=== PATIENT | male | born 1940 | race Hispanic/Latino ===

== ENCOUNTER 2017-06-14 15:34 | Inpatient (IN) | payer MEDICARE, MEDICAID ==
[2017-06-14 15:34] VITALS: BMI 36.6
--- NOTE | 2017-06-14 16:01 | C.PDOC ---
Time Seen by Provider: 06/14/17 15:52 Chief Complaint (Nursing): Back Pain Past Medical History - Medical History PMH: Diabetes, HTN, Hypercholesterolemia, Hyperlipidemia, Hyperthyroidism, Hypothyroidism - [facility] Procedures APPLICATION OF SPLINT (09/02/14) CORONAR ARTERIOGR-2 CATH (11/06/13) LEFT HEART CARDIAC CATH (11/06/13) LT HEART ANGIOCARDIOGRAM (11/06/13) Family History: States: Unknown Family Hx - Social History Hx Tobacco Use: No Hx Alcohol Use: No Hx Substance Use: No - Immunization History Hx Tetanus Toxoid Vaccination: No Hx Influenza Vaccination: No Hx Pneumococcal Vaccination: No Disposition - Disposition Forms: [employer] (Filipino)
[2017-06-14] MEDS ORDERED: Aspirin 325 mg EC Tablets PO STA (16:04)
[2017-06-14] MEDS ORDERED: Enoxaparin 40 mg Syringe SC STA (16:06)
[2017-06-14] MEDS ORDERED: Enoxaparin 100 mg Syringe SC STA (16:16)
[2017-06-14 16:24] LABS: BASO # 0.4 K/uL (0.0-0.2); BASO % 2.1 % (0.0-2.0); HEMATOCRIT 38.8 % (35.0-51.0); LYMPH # 1.1 K/uL (1.0-4.3); LYMPH % 6.3 % (20.0-40.0); MEAN CORPUSCULAR HEMOGLOBIN 27.5 pg (27.0-31.0); MEAN CORPUSCULAR HGB CONC 32.4 g/dL (33.0-37.0); MEAN PLATELET VOLUME 9.5 fL (7.2-11.7); MONO # 1.3 K/uL (0.0-0.8); MONO % 7.5 % (0.0-10.0); PLATELET COUNT 210 K/uL (130-400); RED CELL DISTRIBUTION WIDTH 14.2 % (11.5-14.5); WHITE BLOOD COUNT 16.9 K/uL (4.8-10.8)
[2017-06-14 16:29] LABS: CHLORIDE 99 mmol/L (98-107)
[2017-06-14 16:30] LABS: SODIUM 136 mmol/L (132-148)
[2017-06-14] MEDS ORDERED: Aspirin 325 mg EC Tablets PO ONE (16:31)
[2017-06-14 16:32] LABS: AST/SGOT 165 U/L (17-59); BILIRUBIN,TOTAL 1.6 mg/dL (0.2-1.3); BLOOD UREA NITROGEN 19 mg/dL (9-20); CARBON DIOXIDE 22 mmol/L (22-30); GFR AFRICAN-AMERICAN > 60; TOTAL PROTEIN 8.1 g/dL (6.3-8.3)
[2017-06-14 16:33] LABS: ALKALINE PHOSPHATASE 50 U/L (38-126); ALT/SGPT 62 U/L (21-72); CALCIUM 9.3 mg/dl (8.6-10.4); GLUCOSE,RANDOM 284 mg/dL (75-110)
--- NOTE | 2017-06-14 16:43 | RAD ---
HISTORY: chest pain COMPARISON: Chest x-ray performed 08/30/15 TECHNIQUE: Chest, one view. FINDINGS: Examination limited by habitus. LUNGS: Right hilar prominence. No focal consolidation. Please note that chest x-ray has limited sensitivity for the detection of pulmonary masses. PLEURA: No significant pleural effusion identified. No definite pneumothorax . CARDIOVASCULAR: Median sternotomy wires with evidence of CABG. Heart size appears top normal. Atherosclerotic calcifications of the aorta. OSSEOUS STRUCTURES: Osseous demineralization. Degenerative changes. VISUALIZED UPPER ABDOMEN: Unremarkable. OTHER FINDINGS: None. IMPRESSION: Median sternotomy wires with evidence of CABG. Heart size appears top normal. Atherosclerotic calcifications of the aorta. Right hilar prominence.
--- NOTE | 2017-06-14 16:46 | C.PDOC ---
History Of Present Illness 76 year old male presents to the ED for evaluation of back pain. Per daughter who is acting as [place] active directory architect, patient had a fall yesterday due to a shuffling gait disturbance. Patient struck chin. He denies symptoms preceding fall, no headache, dizziness, or chest pain. He had no loss of consciousness or neck pain. Patient's daughter states that patient has had increasing shortness of breath on exertion, but no shortness of breath at rest. Patient has past medical history of CAD and is 3 years status post CABG. Earlier today patient was complaining to daughter of left mid lateral back pain, somewhat musculoskeletal and exacerbated by deep breath and movement. Patient has minimal complaints at this time. Time Seen by Provider: 06/14/17 15:52 Chief Complaint (Nursing): Back Pain History Per: Patient History/Exam Limitations: no limitations Onset/Duration Of Symptoms: Days Associated Symptoms: Other (Fall) Exacerbating Factor(s): Movement, Other (Deep breath) Past Medical History Reviewed: Historical Data, Nursing Documentation, Vital Signs Vital Signs: Last Vital Signs Temp 98.1 F 06/14/17 16:00 Pulse 76 06/14/17 16:00 Resp 18 06/14/17 16:00 BP 124/63 06/14/17 16:00 Pulse Ox 97 06/14/17 17:00 - Medical History PMH: Diabetes, HTN, Hypercholesterolemia, Hyperlipidemia, Hyperthyroidism, Hypothyroidism - [facility] Procedures APPLICATION OF SPLINT (09/02/14) CORONAR ARTERIOGR-2 CATH (11/06/13) LEFT HEART CARDIAC CATH (11/06/13) LT HEART ANGIOCARDIOGRAM (11/06/13) Family History: States: Unknown Family Hx - Social History Hx Tobacco Use: No Hx Alcohol Use: No Hx Substance Use: No - Immunization History Hx Tetanus Toxoid Vaccination: No Hx Influenza Vaccination: No Hx Pneumococcal Vaccination: No Review Of Systems Cardiovascular: Negative for: Chest Pain Respiratory: Positive for: SOB with Excertion. Negative for: Shortness of Breath Musculoskeletal: Positive for: Back Pain Neurological: Negative for: Headache, Dizziness Physical Exam - Physical Exam Appears: Non-toxic, No Acute Distress Skin: Normal Color, Warm, Dry Head: Atraumatic, Normacephalic Eye(s): bilateral: Normal Inspection Neck: Normal ROM, Supple Cardiovascular: Rhythm Regular (Rate Regular ), No Murmur Gastrointestinal/Abdominal: Soft, No Tenderness, No Distention Back: No CVA Tenderness, Other (No bruising, No tenderness to palpation ) Extremity: No Pedal Edema, No Deformity Neurological/Psych: Oriented x3 ED Course And Treatment - Laboratory Results Result Diagrams: 06/14/17 16:14 06/14/17 16:14 Lab Interpretation: Abnormal (WBC 16.9, Troponin 21.9, D-dimer 348) ECG: Interpreted By Me, Viewed By Me Interpretation Of ECG: ST segment elevation in II, III, and AVF, with small Q waves. Only EKG for comparison is from 2014 which appears different. O2 Sat by Pulse Oximetry: 97 Pulse Ox Interpretation: Normal - Radiology CXR: Interpreted by Me CXR Interpretation: Yes: No Acute Disease - Physician Consult Information Outcome Of Conversation: Case discussed with Dr Arce. Patient does not meet criteria for Code Heart. He has no chest pain and Q waves are present on the EKG. He will be admitted to ICU with ACS. Lovenox and Plavix administered. Dr Levy accepted patient to ICU. Dr Huertas aware. Medical Decision Making Medical Decision Making: EKG faxed to Dr. Arce who is the setter helper who does not feel this is consistent with code hear as the patient does not have chest pain and the event was over 12 hours ago. Disposition - Disposition Disposition: HOSPITALIZED Disposition Time: 17:12 Condition: STABLE - Clinical Impression Clinical Impression: ACS (acute coronary syndrome) - Scribe Statement The provider has reviewed the documentation as recorded by the Tomeka Lovett Provider Attestation: Dr. Shreya Marc
[2017-06-14 16:47] LABS: INR 1.2
[2017-06-14 17:18] LABS: NEUTROPHIL 89 % (50-75); TOTAL CELLS COUNTED 100
--- NOTE | 2017-06-14 18:49 | CP.PCM.CON ---
History of Present Illness - History of Present Illness History of Present Illness: Chief complaints: Fell down yesterday History of present illness: 76-year-old male with a history of diabetes hypertension and high cholesterol CAD status post coronary artery bypass grafting, hypercholesteremia, chronic pedal edema came to the emergency room because was not able to walk today. He was having increasing pain over the chin as well as left-sided at the chest. Patient had a fall yesterday, was unable to walk properly, he is laid down and fell on his face. Since then he developed pain over the left side of the chest. Today he came to the emergency room because of the pain over the chin and a left -sided of the chest because of the fall. He does not have any chest pain. Does not have any shortness of breath. But recently he is having difficulty in walking, he is not walking properly, weakness in the legs noted, wobbling, and unstable gait noted He had a frequent falls also Patient had a surgical intervention for open heart surgery, following that he was not following with the size stamper. Past medical history as noted above Surgical history open heart surgery Allergies: No known drug allergy Personal history nonsmoker nonalcoholic Patient lives with her . I also spoke to the patient's daughter who was with the patient in the emergency room Review of system: No headache noted No chest pain currently, no shortness of breath. Feeling well. He wanted to go home now Vital signs reviewed No neck vein distention noted Chest good air entry bilaterally, no wheezing or rales noted CVS regular heart sound, no murmur noted Abdomen soft, nontender. Extremity bilateral edema noted SERVICE ARCHITECT alert awake oriented -3, no functional neurological deficit Labs. Elevated troponin level noted EKG showing evidence ST changes noted Single size stamper. Not a code heart As the patient does not have any chest pain. No aggressive intervention at this time Assessment and recommendation: 76-year-old male now admitted with the non-ST elevation MS. Patient has a high risk factors include hypertension diabetes high cholesterol CAD, status post triple-vessel bypass. Noncompliance Medications reviewed Patient will be admitted to the intensive care unit. Close monitoring for any arrhythmias. Cardiology evaluation and follow-up and echocardiogram. DVT, GI prophylaxis Follow-up Past Patient History - Past Medical History & Family History Past Medical History?: Yes - Past Social History Smoking Status: Never Smoked - CARDIAC Hx Hypercholesterolemia: Yes Hx Hypertension: Yes - ENDOCRINE/METABOLIC Hx Hyperthyroidism: Yes Hx Hypothyroidism: Yes - MUSCULOSKELETAL/RHEUMATOLOGICAL Hx Falls: No - PSYCHIATRIC Hx Substance Use: No - SURGICAL HISTORY Hx Surgeries: No - ANESTHESIA Hx Anesthesia: Yes Hx Anesthesia Reactions: No Hx Malignant Hyperthermia: No Meds Allergies/Adverse Reactions: Allergies Allergy/AdvReac Type Severity Reaction Status Date / Time No Known Allergies Allergy Verified 09/05/14 16:16 - Medications Medications: Current Medications Aspirin (Ecotrin) 81 mg PO DAILY [facility] Docusate Sodium (Colace) 100 mg PO TID [facility] Enoxaparin Sodium (Lovenox) 40 mg SC DAILY [facility] Furosemide (Lasix) 40 mg PO DAILY [facility] Glipizide (Glucotrol) 10 mg PO BID [facility] Home Med (Atorvastatin [Lipitor]) 20 mg PO DAILY [facility] Insulin Human Regular (Novolin R) 0 unit SC ACHS [facility] PRN Reason: Protocol Methimazole (Tapazole) 10 mg PO DAILY [facility] Metoprolol Tartrate (Lopressor) 50 mg PO HS [facility] Pantoprazole Sodium (Protonix Ec Tab) 40 mg PO DAILY [facility] Results - Vital Signs Recent Vital Signs: Last Vital Signs Temp 98.1 F 06/14/17 16:00 Pulse 72 06/14/17 18:05 Resp 21 06/14/17 18:05 BP 116/61 06/14/17 18:05 Pulse Ox 96 06/14/17 18:05 - Labs Result Diagrams: 06/14/17 16:14 06/14/17 16:14 Labs: Laboratory Results - last 24 hr 06/14/17 06/14/17 06/14/17 16:14 16:14 16:14 WBC 16.9 H D RBC 4.56 Hgb 12.6 Hct 38.8 MCV 85.0 MCH 27.5 MCHC 32.4 L RDW 14.2 Plt Count 210 MPV 9.5 Neut % (Auto) 84.1 H Lymph % (Auto) 6.3 L [place] % (Auto) 7.5 Eos % (Auto) 0.0 Baso % (Auto) 2.1 H Neut # 14.2 H Lymph # 1.1 [place] # 1.3 H Eos # 0.0 Baso # 0.4 H Neutrophils % (Manual) 89 H Lymphocytes % (Manual) 4 L Monocytes % (Manual) 7 Platelet Estimate Normal PT 13.2 H INR 1.2 D-Dimer, Quantitative 348 H Sodium 136 Potassium 4.0 Chloride 99 Carbon Dioxide 22 Anion Gap 19 BUN 19 Creatinine 0.9 Est GFR ( Amer) > 60 Est GFR (Non-Af Amer) > 60 Random Glucose 284 H Calcium 9.3 Total Bilirubin 1.6 H AST 165 H ALT 62 Alkaline Phosphatase 50 Troponin I 21.9000 H* NT-Pro-B Natriuret Pep 4010 H Total Protein 8.1 Albumin 4.1 Globulin 4.0 H Albumin/Globulin Ratio 1.0
--- NOTE | 2017-06-14 19:06 | CP.PCM.CON ---
History of Present Illness - History of Present Illness History of Present Illness: 76 Male known to me s/p CABG x 3 (2013), CHF, DM 2 Admitted for ACS Lovenox, ASA, B blockers, Statins and Plavix For cath tomorrow Orders written and D/W patient and his daughter Past Patient History - Past Medical History & Family History Past Medical History?: Yes - Past Social History Smoking Status: Never Smoked - CARDIAC Hx Hypercholesterolemia: Yes Hx Hypertension: Yes - ENDOCRINE/METABOLIC Hx Hyperthyroidism: Yes Hx Hypothyroidism: Yes - MUSCULOSKELETAL/RHEUMATOLOGICAL Hx Falls: No - PSYCHIATRIC Hx Substance Use: No - SURGICAL HISTORY Hx Surgeries: No - ANESTHESIA Hx Anesthesia: Yes Hx Anesthesia Reactions: No Hx Malignant Hyperthermia: No Meds Allergies/Adverse Reactions: Allergies Allergy/AdvReac Type Severity Reaction Status Date / Time No Known Allergies Allergy Verified 09/05/14 16:16 - Medications Medications: Current Medications Aspirin (Ecotrin) 81 mg PO DAILY [facility] Clopidogrel Bisulfate (Plavix) 75 mg PO DAILY [facility] Docusate Sodium (Colace) 100 mg PO TID [facility] Enoxaparin Sodium (Lovenox) 80 mg SC BID [facility] Famotidine (Pepcid) 20 mg IVP DAILY [facility] Furosemide (Lasix) 40 mg PO DAILY [facility] Glipizide (Glucotrol) 10 mg PO BID [facility] Insulin Human Regular (Novolin R) 0 unit SC ACHS [facility] PRN Reason: Protocol Methimazole (Tapazole) 10 mg PO DAILY [facility] Metoprolol Tartrate (Lopressor) 50 mg PO HS [facility] Pantoprazole Sodium (Protonix Ec Tab) 40 mg PO DAILY [facility] Rosuvastatin Calcium (Crestor) 10 mg PO DAILY [facility] Results - Vital Signs Recent Vital Signs: Last Vital Signs Temp 98.1 F 06/14/17 16:00 Pulse 75 06/14/17 19:02 Resp 24 06/14/17 19:02 BP 129/65 06/14/17 19:02 Pulse Ox 96 06/14/17 19:02 - Labs Result Diagrams: 06/14/17 16:14 06/14/17 16:14 Labs: Laboratory Results - last 24 hr 06/14/17 06/14/17 06/14/17 16:14 16:14 16:14 WBC 16.9 H D RBC 4.56 Hgb 12.6 Hct 38.8 MCV 85.0 MCH 27.5 MCHC 32.4 L RDW 14.2 Plt Count 210 MPV 9.5 Neut % (Auto) 84.1 H Lymph % (Auto) 6.3 L [place] % (Auto) 7.5 Eos % (Auto) 0.0 Baso % (Auto) 2.1 H Neut # 14.2 H Lymph # 1.1 [place] # 1.3 H Eos # 0.0 Baso # 0.4 H Neutrophils % (Manual) 89 H Lymphocytes % (Manual) 4 L Monocytes % (Manual) 7 Platelet Estimate Normal PT 13.2 H INR 1.2 D-Dimer, Quantitative 348 H Sodium 136 Potassium 4.0 Chloride 99 Carbon Dioxide 22 Anion Gap 19 BUN 19 Creatinine 0.9 Est GFR ( Amer) > 60 Est GFR (Non-Af Amer) > 60 Random Glucose 284 H Calcium 9.3 Total Bilirubin 1.6 H AST 165 H ALT 62 Alkaline Phosphatase 50 Troponin I 21.9000 H* NT-Pro-B Natriuret Pep 4010 H Total Protein 8.1 Albumin 4.1 Globulin 4.0 H Albumin/Globulin Ratio 1.0
[2017-06-14 20:19] LABS: RBC URINE 1 /hpf (0-3); URINE BACTERIA RARE (<OCC); URINE BILIRUBIN NEGATIVE (NEGATIVE); URINE BLOOD NEGATIVE (NEGATIVE); URINE COLOR Amber (YELLOW); URINE GLUCOSE (UA) 3+ mg/dL (Normal); URINE KETONE TRACE mg/dL (NEGATIVE); URINE LEUKOCYTE ESTERASE NEG Leu/uL (Negative); URINE PROTEIN 1+ mg/dL (NEGATIVE); WBC URINE 13 /hpf (0-5)
[2017-06-14] MEDS: (Novolin R) Insulin Human Regular 100 units/ml vial SC SCH (21:25)
[2017-06-14] MEDS ORDERED: Sodium Chloride 0.9% 1,000 ML ONE (21:43)
[2017-06-14] MEDS ORDERED: Sodium Chloride 0.9% 1,000 ML IV SCH (21:45)
[2017-06-15 06:23] LABS: BASO # 0.1 K/uL (0.0-0.2); BASO % 0.4 % (0.0-2.0); EOS # 0.1 K/uL (0.0-0.7); EOS % 0.6 % (0.0-4.0); HEMATOCRIT 35.9 % (35.0-51.0); LYMPH # 1.5 K/uL (1.0-4.3); LYMPH % 11.4 % (20.0-40.0); MEAN CELL VOLUME 84.8 fL (80.0-94.0); MEAN CORPUSCULAR HEMOGLOBIN 28.1 pg (27.0-31.0); MEAN CORPUSCULAR HGB CONC 33.2 g/dL (33.0-37.0); MEAN PLATELET VOLUME 9.5 fL (7.2-11.7); MONO # 1.4 K/uL (0.0-0.8); MONO % 10.5 % (0.0-10.0); WHITE BLOOD COUNT 13.2 K/uL (4.8-10.8)
[2017-06-15 06:35] LABS: ALKALINE PHOSPHATASE 51 U/L (38-126); ALT/SGPT 50 U/L (21-72); AST/SGOT 101 U/L (17-59); BILIRUBIN,TOTAL 1.5 mg/dL (0.2-1.3); BLOOD UREA NITROGEN 17 mg/dL (9-20); CARBON DIOXIDE 25 mmol/L (22-30); CHLORIDE 99 mmol/L (98-107); GFR AFRICAN-AMERICAN > 60; GLUCOSE,RANDOM 259 mg/dL (75-110); MAGNESIUM 1.8 mg/dL (1.6-2.3); PHOSPHOROUS 2.4 mg/dL (2.5-4.5); POTASSIUM 3.8 mmol/L (3.6-5.2); SODIUM 133 mmol/L (132-148); TOTAL PROTEIN 7.4 g/dL (6.3-8.3)
[2017-06-15] MEDS: (Novolin R) Insulin Human Regular 100 units/ml vial SC SCH ×4 (08:43→21:33)
[2017-06-15] MEDS ORDERED: Enoxaparin 80 mg Syringe SC SCH (10:00)
[2017-06-15] MEDS ORDERED: Enoxaparin 40 mg Syringe SC SCH (10:00)
[2017-06-15] MEDS ORDERED: Pantoprazole 40 mg EC Tab PO SCH (10:00)
--- NOTE | 2017-06-15 12:02 | CARD ---
APPROVED REPORT EKG Measurement Heart [id number] <Conclusion> Sinus rhythm with 1st degree AV block with premature atrial complexes Possible Left atrial enlargement Low voltage QRS Inferior infarct, possibly acute Cannot rule out Anterior infarct, age undetermined ACUTE [place] / STEMI Consider right ventricular involvement in acute inferior infarct Abnormal ECG
--- NOTE | 2017-06-15 12:08 | CP.CCUPN ---
Addendum entered and electronically signed by Samanta Silverman 06/15/17 18:21 : Patient with AMS. Unable to recognize Dr. Huertas (who he normally knows). Patient does not follow commands. Cardiac cath cancelled. Stat Head Ct ordered which shows nonspecific white matter changes. Opacification/ fluid within the left mastoid air cells. After some time patient re-examined and less confused. Dr. Levy thinks patient's confusion probably due to sundowning. Dr. Aguirre (neuro) consulted who wants EEG done in AM. Original Note: <Samanta Silverman - Last Filed: 06/15/17 12:02> CCU Subjective - Physician Review Subjective (Free Text): Patient seen and examined at bedside and in no acute distress. Patient admits to shortness of breath and sweating. Patient denies chest pain, abdominal pain, nausea, vomiting, constipation, or diarrhea. CCU Objective - Vital Signs / Intake & Output Vital Signs (Last 4 hours): Vital Signs Pulse Resp BP Pulse Ox 06/15/17 12:00 144/75 06/15/17 11:59 88 25 H 95 06/15/17 11:45 86 18 06/15/17 11:30 140/85 06/15/17 09:55 94 H 26 H 128/61 100 06/15/17 09:34 126/70 06/15/17 08:55 79 24 126/70 100 06/15/17 08:30 77 24 100 Intake and Output (Last 8hrs): Intake & Output 06/14/17 06/15/17 06/15/17 22:59 06:59 14:59 Intake Total 470 610 Output Total 400 200 Balance 70 410 Weight 217 lb 209 lb 11.2 oz Intake: Intake, IV Amount 350 250 Right Hand 350 250 Oral 120 360 Output: Urine 400 200 Urine, Voided 400 200 Other: Voiding Method Urinal # Voids Urine, Voided 1 1 # Bowel Movements 0 0 - Physical Exam Head: Positive for: Atraumatic, Normocephalic Pupils: Positive for: PERRL Mouth: Positive for: Moist Mucous Membranes Respiratory/Chest: Positive for: Accessory Muscle Use, Wheezes, Rhonchi Cardiovascular: Positive for: Regular Rate and Rhythm, Normal S1, S2 Abdomen: Positive for: Normal Bowel Sounds. Negative for: Tenderness, Distention Upper Extremity: Positive for: Normal Inspection Lower Extremity: Positive for: Edema, Erythema. Negative for: Normal Inspection Neurological: Positive for: GCS=15 Skin: Positive for: Warm, Dry, Normal Color Psychiatric: Positive for: Alert, Oriented x 3 - Medications Active Medications: Active Medications Generic Name Dose Route Start Last Admin Trade Name Freq PRN Reason Stop Dose Admin Albuterol/Ipratropium 3 ml 06/15/17 12:01 Duoneb 3 Mg/0.5 Mg (3 Ml) Ud INH RQ8 GRACIE Aspirin 81 mg 06/15/17 10:00 06/15/17 09:34 Ecotrin PO 81 mg DAILY GRACIE Administration Clopidogrel Bisulfate 75 mg 06/15/17 10:00 06/15/17 09:34 Plavix PO 75 mg DAILY GRACIE Administration Docusate Sodium 100 mg 06/15/17 10:00 06/15/17 09:34 Colace PO 100 mg TID GRACIE Administration Enoxaparin Sodium 80 mg 06/15/17 10:00 06/15/17 10:00 Lovenox SC Not Given BID GRACIE Famotidine 20 mg 06/15/17 10:00 06/15/17 09:34 Pepcid IVP 20 mg DAILY GRACIE Administration Furosemide 40 mg 06/15/17 10:00 06/15/17 09:34 Lasix PO 40 mg DAILY GRACIE Administration Glipizide 10 mg 06/15/17 10:00 06/15/17 09:36 Glucotrol PO Not Given BID GRACIE Insulin Human Regular 0 unit 06/14/17 22:00 06/15/17 08:43 Novolin R SC 3 unit ACHS GRACIE Administration Protocol Methimazole 10 mg 06/15/17 10:00 06/15/17 09:33 Tapazole PO 10 mg DAILY GRACIE Administration Metoprolol Tartrate 50 mg 06/14/17 22:00 06/14/17 21:25 Lopressor PO 50 mg HS GRACIE Administration Rosuvastatin Calcium 10 mg 06/15/17 22:00 Crestor PO HS GRACIE - Patient Studies Lab Studies: Lab Studies 06/15/17 06/15/17 06/15/17 Range/Units 08:24 06:13 06:13 WBC 13.2 H (4.8-10.8) K/uL RBC 4.24 L (4.40-5.90) Mil/uL Hgb 11.9 L (12.0-18.0) g/dL Hct 35.9 (35.0-51.0) % MCV 84.8 (80.0-94.0) fL MCH 28.1 (27.0-31.0) pg MCHC 33.2 (33.0-37.0) g/dL RDW 14.0 (11.5-14.5) % Plt Count 189 (130-400) K/uL MPV 9.5 (7.2-11.7) fL Neut % (Auto) 77.1 H (50.0-75.0) % Lymph % (Auto) 11.4 L (20.0-40.0) % [place] % (Auto) 10.5 H (0.0-10.0) % Eos % (Auto) 0.6 (0.0-4.0) % Baso % (Auto) 0.4 (0.0-2.0) % Neut # 10.1 H (1.8-7.0) K/uL Lymph # 1.5 (1.0-4.3) K/uL [place] # 1.4 H (0.0-0.8) K/uL Eos # 0.1 (0.0-0.7) K/uL Baso # 0.1 (0.0-0.2) K/uL Neutrophils % (Manual) (50-75) % Lymphocytes % (Manual) (20-40) % Monocytes % (Manual) (0-10) % Platelet Estimate (NORMAL) PT (9.7-12.2) SECONDS INR D-Dimer, Quantitative (0-243) ng/mlDDU Sodium 133 (132-148) mmol/L Potassium 3.8 (3.6-5.2) mmol/L Chloride 99 (98-107) mmol/L Carbon Dioxide 25 (22-30) mmol/L Anion Gap 12 (10-20) BUN 17 (9-20) mg/dL Creatinine 0.9 (0.8-1.5) mg/dL Est GFR ( Amer) > 60 Est GFR (Non-Af Amer) > 60 POC Glucose (mg/dL) 259 H (65-110) mg/dL Random Glucose 259 H (75-110) mg/dL Calcium 9.0 (8.6-10.4) mg/dl Phosphorus 2.4 L (2.5-4.5) mg/dL Magnesium 1.8 (1.6-2.3) mg/dL Total Bilirubin 1.5 H (0.2-1.3) mg/dL AST 101 H D (17-59) U/L ALT 50 (21-72) U/L Alkaline Phosphatase 51 (38-126) U/L Total Creatine Kinase 865 H (55-170) U/L CK-MB (Mass) 16.5 H (0.0-3.38) ng/mL Troponin I (0.00-0.120) ng/mL Troponin I, Quant 17.5000 H* (0.00-0.120) ng/mL NT-Pro-B Natriuret Pep (0-900) pg/mL Total Protein 7.4 (6.3-8.3) g/dL Albumin 3.6 (3.5-5.0) g/dL Globulin 3.8 (2.2-3.9) gm/dL Albumin/Globulin Ratio 1.0 (1.0-2.1) Urine Color (YELLOW) Urine Clarity (Clear) Urine pH (5.0-8.0) Ur Specific [place] (1.003-1.030) Urine Protein (NEGATIVE) mg/dL Urine Glucose (UA) (Normal) mg/dL Urine Ketones (NEGATIVE) mg/dL Urine Blood (NEGATIVE) Urine Nitrate (NEGATIVE) Urine Bilirubin (NEGATIVE) Urine Urobilinogen (0.2-1.0) mg/dL Ur Leukocyte Esterase (Negative) Casey/uL Urine WBC (Auto) (0-5) /hpf Urine RBC (Auto) (0-3) /hpf Ur Squamous Epith Cells (0-5) /hpf Urine Bacteria (<OCC) 06/14/17 06/14/17 06/14/17 Range/Units 21:49 21:08 20:12 WBC (4.8-10.8) K/uL RBC (4.40-5.90) Mil/uL Hgb (12.0-18.0) g/dL Hct (35.0-51.0) % MCV (80.0-94.0) fL MCH (27.0-31.0) pg MCHC (33.0-37.0) g/dL RDW (11.5-14.5) % Plt Count (130-400) K/uL MPV (7.2-11.7) fL Neut % (Auto) (50.0-75.0) % Lymph % (Auto) (20.0-40.0) % [place] % (Auto) (0.0-10.0) % Eos % (Auto) (0.0-4.0) % Baso % (Auto) (0.0-2.0) % Neut # (1.8-7.0) K/uL Lymph # (1.0-4.3) K/uL [place] # (0.0-0.8) K/uL Eos # (0.0-0.7) K/uL Baso # (0.0-0.2) K/uL Neutrophils % (Manual) (50-75) % Lymphocytes % (Manual) (20-40) % Monocytes % (Manual) (0-10) % Platelet Estimate (NORMAL) PT (9.7-12.2) SECONDS INR D-Dimer, Quantitative (0-243) ng/mlDDU Sodium (132-148) mmol/L Potassium (3.6-5.2) mmol/L Chloride (98-107) mmol/L Carbon Dioxide (22-30) mmol/L Anion Gap (10-20) BUN (9-20) mg/dL Creatinine (0.8-1.5) mg/dL Est GFR ( Amer) Est GFR (Non-Af Amer) POC Glucose (mg/dL) 320 H (65-110) mg/dL Random Glucose (75-110) mg/dL Calcium (8.6-10.4) mg/dl Phosphorus (2.5-4.5) mg/dL Magnesium (1.6-2.3) mg/dL Total Bilirubin (0.2-1.3) mg/dL AST (17-59) U/L ALT (21-72) U/L Alkaline Phosphatase (38-126) U/L Total Creatine Kinase 870 H (55-170) U/L CK-MB (Mass) 24.8 H (0.0-3.38) ng/mL Troponin I (0.00-0.120) ng/mL Troponin I, Quant 19.7000 H* (0.00-0.120) ng/mL NT-Pro-B Natriuret Pep (0-900) pg/mL Total Protein (6.3-8.3) g/dL Albumin (3.5-5.0) g/dL Globulin (2.2-3.9) gm/dL Albumin/Globulin Ratio (1.0-2.1) Urine Color Sheryl (YELLOW) Urine Clarity Clear (Clear) Urine pH 5.0 (5.0-8.0) Ur Specific [place] 1.033 H (1.003-1.030) Urine Protein 1+ H (NEGATIVE) mg/dL Urine Glucose (UA) 3+ H (Normal) mg/dL Urine Ketones Trace (NEGATIVE) mg/dL Urine Blood Negative (NEGATIVE) Urine Nitrate Negative (NEGATIVE) Urine Bilirubin Negative (NEGATIVE) Urine Urobilinogen 2.0 (0.2-1.0) mg/dL Ur Leukocyte Esterase Neg (Negative) [place]/uL Urine WBC (Auto) 13 H (0-5) /hpf Urine RBC (Auto) 1 (0-3) /hpf Ur Squamous Epith Cells 1 (0-5) /hpf Urine Bacteria Rare (<OCC) 06/14/17 06/14/17 06/14/17 Range/Units 16:14 16:14 16:14 WBC 16.9 H D (4.8-10.8) K/uL RBC 4.56 (4.40-5.90) Mil/uL Hgb 12.6 (12.0-18.0) g/dL Hct 38.8 (35.0-51.0) % MCV 85.0 (80.0-94.0) fL MCH 27.5 (27.0-31.0) pg MCHC 32.4 L (33.0-37.0) g/dL RDW 14.2 (11.5-14.5) % Plt Count 210 (130-400) K/uL MPV 9.5 (7.2-11.7) fL Neut % (Auto) 84.1 H (50.0-75.0) % Lymph % (Auto) 6.3 L (20.0-40.0) % [place] % (Auto) 7.5 (0.0-10.0) % Eos % (Auto) 0.0 (0.0-4.0) % Baso % (Auto) 2.1 H (0.0-2.0) % Neut # 14.2 H (1.8-7.0) K/uL Lymph # 1.1 (1.0-4.3) K/uL [place] # 1.3 H (0.0-0.8) K/uL Eos # 0.0 (0.0-0.7) K/uL Baso # 0.4 H (0.0-0.2) K/uL Neutrophils % (Manual) 89 H (50-75) % Lymphocytes % (Manual) 4 L (20-40) % Monocytes % (Manual) 7 (0-10) % Platelet Estimate Normal (NORMAL) PT 13.2 H (9.7-12.2) SECONDS INR 1.2 D-Dimer, Quantitative 348 H (0-243) ng/mlDDU Sodium 136 (132-148) mmol/L Potassium 4.0 (3.6-5.2) mmol/L Chloride 99 (98-107) mmol/L Carbon Dioxide 22 (22-30) mmol/L Anion Gap 19 (10-20) BUN 19 (9-20) mg/dL Creatinine 0.9 (0.8-1.5) mg/dL Est GFR ( Amer) > 60 Est GFR (Non-Af Amer) > 60 POC Glucose (mg/dL) (65-110) mg/dL Random Glucose 284 H (75-110) mg/dL Calcium 9.3 (8.6-10.4) mg/dl Phosphorus (2.5-4.5) mg/dL Magnesium (1.6-2.3) mg/dL Total Bilirubin 1.6 H (0.2-1.3) mg/dL AST 165 H (17-59) U/L ALT 62 (21-72) U/L Alkaline Phosphatase 50 (38-126) U/L Total Creatine Kinase (55-170) U/L CK-MB (Mass) (0.0-3.38) ng/mL Troponin I 21.9000 H* (0.00-0.120) ng/mL Troponin I, Quant (0.00-0.120) ng/mL NT-Pro-B Natriuret Pep 4010 H (0-900) pg/mL Total Protein 8.1 (6.3-8.3) g/dL Albumin 4.1 (3.5-5.0) g/dL Globulin 4.0 H (2.2-3.9) gm/dL Albumin/Globulin Ratio 1.0 (1.0-2.1) Urine Color (YELLOW) Urine Clarity (Clear) Urine pH (5.0-8.0) Ur Specific [place] (1.003-1.030) Urine Protein (NEGATIVE) mg/dL Urine Glucose (UA) (Normal) mg/dL Urine Ketones (NEGATIVE) mg/dL Urine Blood (NEGATIVE) Urine Nitrate (NEGATIVE) Urine Bilirubin (NEGATIVE) Urine Urobilinogen (0.2-1.0) mg/dL Ur Leukocyte Esterase (Negative) [place]/uL Urine WBC (Auto) (0-5) /hpf Urine RBC (Auto) (0-3) /hpf Ur Squamous Epith Cells (0-5) /hpf Urine Bacteria (<OCC) Laboratory Results - last 24 hr 06/14/17 06/14/17 06/14/17 16:14 16:14 16:14 WBC 16.9 H D RBC 4.56 Hgb 12.6 Hct 38.8 MCV 85.0 MCH 27.5 MCHC 32.4 L RDW 14.2 Plt Count 210 MPV 9.5 Neut % (Auto) 84.1 H Lymph % (Auto) 6.3 L [place] % (Auto) 7.5 Eos % (Auto) 0.0 Baso % (Auto) 2.1 H Neut # 14.2 H Lymph # 1.1 [place] # 1.3 H Eos # 0.0 Baso # 0.4 H Neutrophils % (Manual) 89 H Lymphocytes % (Manual) 4 L Monocytes % (Manual) 7 Platelet Estimate Normal PT 13.2 H INR 1.2 D-Dimer, Quantitative 348 H Sodium 136 Potassium 4.0 Chloride 99 Carbon Dioxide 22 Anion Gap 19 BUN 19 Creatinine 0.9 Est GFR ( Amer) > 60 Est GFR (Non-Af Amer) > 60 POC Glucose (mg/dL) Random Glucose 284 H Calcium 9.3 Phosphorus Magnesium Total Bilirubin 1.6 H AST 165 H ALT 62 Alkaline Phosphatase 50 Total Creatine Kinase CK-MB (Mass) Troponin I 21.9000 H* Troponin I, Quant NT-Pro-B Natriuret Pep 4010 H Total Protein 8.1 Albumin 4.1 Globulin 4.0 H Albumin/Globulin Ratio 1.0 Urine Color Urine Clarity Urine pH Ur Specific [place] Urine Protein Urine Glucose (UA) Urine Ketones Urine Blood Urine Nitrate Urine Bilirubin Urine Urobilinogen Ur Leukocyte Esterase Urine WBC (Auto) Urine RBC (Auto) Ur Squamous Epith Cells Urine Bacteria 06/14/17 06/14/17 06/14/17 20:12 21:08 21:49 WBC RBC Hgb Hct MCV MCH MCHC RDW Plt Count MPV Neut % (Auto) Lymph % (Auto) [place] % (Auto) Eos % (Auto) Baso % (Auto) Neut # Lymph # [place] # Eos # Baso # Neutrophils % (Manual) Lymphocytes % (Manual) Monocytes % (Manual) Platelet Estimate PT INR D-Dimer, Quantitative Sodium Potassium Chloride Carbon Dioxide Anion Gap BUN Creatinine Est GFR ( Amer) Est GFR (Non-Af Amer) POC Glucose (mg/dL) 320 H Random Glucose Calcium Phosphorus Magnesium Total Bilirubin AST ALT Alkaline Phosphatase Total Creatine Kinase 870 H CK-MB (Mass) 24.8 H Troponin I Troponin I, Quant 19.7000 H* NT-Pro-B Natriuret Pep Total Protein Albumin Globulin Albumin/Globulin Ratio Urine Color Sheryl Urine Clarity Clear Urine pH 5.0 Ur Specific [place] 1.033 H Urine Protein 1+ H Urine Glucose (UA) 3+ H Urine Ketones Trace Urine Blood Negative Urine Nitrate Negative Urine Bilirubin Negative Urine Urobilinogen 2.0 Ur Leukocyte Esterase Neg Urine WBC (Auto) 13 H Urine RBC (Auto) 1 Ur Squamous Epith Cells 1 Urine Bacteria Rare 06/15/17 06/15/17 06/15/17 06:13 06:13 08:24 WBC 13.2 H RBC 4.24 L Hgb 11.9 L Hct 35.9 MCV 84.8 MCH 28.1 MCHC 33.2 RDW 14.0 Plt Count 189 MPV 9.5 Neut % (Auto) 77.1 H Lymph % (Auto) 11.4 L [place] % (Auto) 10.5 H Eos % (Auto) 0.6 Baso % (Auto) 0.4 Neut # 10.1 H Lymph # 1.5 [place] # 1.4 H Eos # 0.1 Baso # 0.1 Neutrophils % (Manual) Lymphocytes % (Manual) Monocytes % (Manual) Platelet Estimate PT INR D-Dimer, Quantitative Sodium 133 Potassium 3.8 Chloride 99 Carbon Dioxide 25 Anion Gap 12 BUN 17 Creatinine 0.9 Est GFR ( Amer) > 60 Est GFR (Non-Af Amer) > 60 POC Glucose (mg/dL) 259 H Random Glucose 259 H Calcium 9.0 Phosphorus 2.4 L Magnesium 1.8 Total Bilirubin 1.5 H AST 101 H D ALT 50 Alkaline Phosphatase 51 Total Creatine Kinase 865 H CK-MB (Mass) 16.5 H Troponin I Troponin I, Quant 17.5000 H* NT-Pro-B Natriuret Pep Total Protein 7.4 Albumin 3.6 Globulin 3.8 Albumin/Globulin Ratio 1.0 Urine Color Urine Clarity Urine pH Ur Specific [place] Urine Protein Urine Glucose (UA) Urine Ketones Urine Blood Urine Nitrate Urine Bilirubin Urine Urobilinogen Ur Leukocyte Esterase Urine WBC (Auto) Urine RBC (Auto) Ur Squamous Epith Cells Urine Bacteria EKG/Cardiology Studies: Cardiology / EKG Studies 06/14/17 16:05 ELECTROCARDIOGRAM Stat Comment: Mode Of Transportation: BED Reason For Exam: chest pain Isolation: Droplet 06/14/17 22:00 EKG [ELECTROCARDIOGRAM] Stat Comment: number 2 ekg Mode Of Transportation: BED Reason For Exam: elevated malina Isolation: Droplet 06/15/17 06:00 EKG [ELECTROCARDIOGRAM] Routine Comment: with Malina Mode Of Transportation: STRETCHER Reason For Exam: elevated troponin Isolation: Droplet Fingerstick Blood Sugar Results: 259 Review of Systems - Constitutional Constitutional: Sweats. absent: Fever, Chills, Weakness - Cardiovascular Cardiovascular: Dyspnea. absent: Chest Pain, Claudication, Palpitations - Respiratory Respiratory: Chest Congestion, Excessive Mucous Production - Gastrointestinal Gastrointestinal: absent: Constipation, Diarrhea, Nausea, Vomiting - Genitourinary Genitourinary: absent: Difficulty Urinating - Integumentary Integumentary: absent: Rash - Neurological Neurological: absent: Tingling, Weakness - Psychiatric Psychiatric: UNREMARKABLE Critical Care Progress Note - Nutrition Nutrition: Nutrition Category Date Time Status NPO Diet [DIET] Diets 06/15/17 Lunch Active Assessment/Plan - Assessment and Plan (Free Text) Assessment: 76-year-old male with a history of diabetes, hyperthyroidism, hypertension, high cholesterol, CAD, triple vessel bypass , hypercholesterolemia, chronic pedal edema s/p fall with NSTEMI on admission. Neuro: Intact Cardio: hx HTN, high cholesterol, hypercholesterolemia triple vessel bypass -Metoprolol 50mg PO HS -Rosuvastatin 10mg PO HS -Plavix 75 mh po daily -ASA 81mg po daily -Cardiac Cath today with Dr. Claude Richter: -Cxray 06/14: median sternotomy wires with evidence of CABG, heart size appears normal, atherosclerotic calcifications of the aorta, right hilar prominence -Duonebs q8h -Lasix 40mg po daily Endo: hx DM, hyperthryroidism -Glipizide 10 mg po BID -ISS ACHS -accuchecks ACHS -Methimazole 10mg PO daily GI: constipation Colace 100 mg po TID Prophylaxis: GI: Pepcid 20mg IVP daily DVT: SCDs <Jillian Levy - Last Filed: 06/22/17 14:26> CCU Objective - Vital Signs / Intake & Output Intake and Output (Last 8hrs): Intake & Output 06/21/17 06/22/17 06/22/17 22:59 06:59 14:59 Output Total 400 Balance -400 Output: Urine 400 Urine, Voided 400 - Medications Active Medications: Active Medications Generic Name Dose Route Start Last Admin Trade Name Freq PRN Reason Stop Dose Admin Acetaminophen 650 mg 06/16/17 17:16 06/16/17 17:26 Tylenol 325mg Tab PO 650 mg Q6 PRN Administration Pain, moderate (4-7) Albuterol/Ipratropium 3 ml 06/21/17 20:00 06/22/17 13:17 Duoneb 3 Mg/0.5 Mg (3 Ml) Ud INH 3 ml RQ6 GRACIE Administration Albuterol/Ipratropium 3 ml 06/21/17 16:38 Duoneb 3 Mg/0.5 Mg (3 Ml) Ud INH RQ2 PRN Shortness of Breath Aspirin 81 mg 06/15/17 10:00 06/22/17 10:00 Ecotrin PO Not Given DAILY [facility] Clopidogrel Bisulfate 75 mg 06/16/17 10:00 06/22/17 10:00 Plavix PO Not Given DAILY GRACIE Docusate Sodium 100 mg 06/15/17 10:00 06/22/17 10:00 Colace PO Not Given TID [facility] Enoxaparin Sodium 40 mg 06/16/17 10:00 06/22/17 10:00 Lovenox SC Not Given DAILY [facility] Famotidine 20 mg 06/19/17 10:00 06/22/17 10:00 Pepcid PO Not Given DAILY GRACIE Furosemide 40 mg 06/21/17 18:00 06/22/17 10:00 Lasix IVP Not Given BID GRACIE Glipizide 10 mg 06/15/17 10:00 06/22/17 10:00 Glucotrol PO Not Given BID [facility] Guaifenesin/Dextromethorphan 10 ml 06/19/17 14:00 06/21/17 10:06 Robitussin Dm PO 10 ml Q4H PRN Administration Cough and congestion Ceftriaxone Sodium 50 mls @ 100 mls/hr 06/21/17 19:00 06/21/17 20:08 Rocephin Iv 1 Gm Duplex IVPB 100 mls/hr Q24H GRACIE Administration Insulin Human Regular 0 unit 06/18/17 09:40 06/22/17 11:30 Novolin R SC Not Given ACHS [facility] Protocol Losartan Potassium 25 mg 06/22/17 10:00 06/22/17 10:00 Cozaar PO Not Given DAILY [facility] Magnesium Hydroxide 30 ml 06/19/17 11:49 06/19/17 17:21 Milk Of Magnesia PO 30 ml Q6H PRN Administration Constipation Methimazole 10 mg 06/15/17 10:00 06/22/17 10:00 Tapazole PO Not Given DAILY [facility] Metoprolol Tartrate 25 mg 06/22/17 10:18 Lopressor PO BID [facility] Rosuvastatin Calcium 10 mg 06/15/17 22:00 06/20/17 22:02 Crestor PO 10 mg HS GRACIE Administration - Patient Studies Lab Studies: Lab Studies 06/22/17 06/22/17 06/22/17 Range/Units 07:02 07:02 07:02 WBC 8.5 (4.8-10.8) K/uL RBC 3.99 L (4.40-5.90) Mil/uL Hgb 11.4 L (12.0-18.0) g/dL Hct 33.9 L (35.0-51.0) % MCV 84.8 (80.0-94.0) fL MCH 28.5 (27.0-31.0) pg MCHC 33.6 (33.0-37.0) g/dL RDW 14.2 (11.5-14.5) % Plt Count 293 (130-400) K/uL MPV 9.1 (7.2-11.7) fL PT 14.4 H (9.7-12.2) SECONDS INR 1.3 Sodium 136 (132-148) mmol/L Potassium 3.7 (3.6-5.2) mmol/L Chloride 99 (98-107) mmol/L Carbon Dioxide 25 (22-30) mmol/L Anion Gap 15 (10-20) BUN 28 H (9-20) mg/dL Creatinine 0.9 (0.8-1.5) mg/dL Est GFR ( Amer) > 60 Est GFR (Non-Af Amer) > 60 POC Glucose (mg/dL) (65-110) mg/dL Random Glucose 216 H (75-110) mg/dL Calcium 8.1 L (8.6-10.4) mg/dl 06/21/17 06/21/17 06/21/17 Range/Units 21:10 16:43 11:45 WBC (4.8-10.8) K/uL RBC (4.40-5.90) Mil/uL Hgb (12.0-18.0) g/dL Hct (35.0-51.0) % MCV (80.0-94.0) fL MCH (27.0-31.0) pg MCHC (33.0-37.0) g/dL RDW (11.5-14.5) % Plt Count (130-400) K/uL MPV (7.2-11.7) fL PT (9.7-12.2) SECONDS INR Sodium (132-148) mmol/L Potassium (3.6-5.2) mmol/L Chloride (98-107) mmol/L Carbon Dioxide (22-30) mmol/L Anion Gap (10-20) BUN (9-20) mg/dL Creatinine (0.8-1.5) mg/dL Est GFR ( Amer) Est GFR (Non-Af Amer) POC Glucose (mg/dL) 279 H 247 H 248 H (65-110) mg/dL Random Glucose (75-110) mg/dL Calcium (8.6-10.4) mg/dl Laboratory Results - last 24 hr 06/21/17 06/21/17 06/21/17 11:45 16:43 21:10 WBC RBC Hgb Hct MCV MCH MCHC RDW Plt Count MPV PT INR Sodium Potassium Chloride Carbon Dioxide Anion Gap BUN Creatinine Est GFR ( Amer) Est GFR (Non-Af Amer) POC Glucose (mg/dL) 248 H 247 H 279 H Random Glucose Calcium 06/22/17 06/22/17 06/22/17 07:02 07:02 07:02 WBC 8.5 RBC 3.99 L Hgb 11.4 L Hct 33.9 L MCV 84.8 MCH 28.5 MCHC 33.6 RDW 14.2 Plt Count 293 MPV 9.1 PT 14.4 H INR 1.3 Sodium 136 Potassium 3.7 Chloride 99 Carbon Dioxide 25 Anion Gap 15 BUN 28 H Creatinine 0.9 Est GFR ( Amer) > 60 Est GFR (Non-Af Amer) > 60 POC Glucose (mg/dL) Random Glucose 216 H Calcium 8.1 L Critical Care Progress Note - Nutrition Nutrition: Nutrition Category Date Time Status Heart Healthy Diet [DIET] Diets 06/22/17 Lunch Active Attending/Attestation - Attestation I have personally seen and examined this patient.: Yes I have fully participated in the care of the patient.: Yes I have reviewed all pertinent clinical information: Yes Notes (Text): 06/22/17 14:26 Patient is awake responding. Family at bedside. Spoke to the daughter. For angiogram again.
--- NOTE | 2017-06-15 12:11 | CARD ---
APPROVED REPORT EKG Measurement Heart [id number] <Conclusion> Sinus rhythm with 1st degree AV block with premature atrial complexes Inferior infarct, age undetermined T wave abnormality, consider lateral ischemia Abnormal ECG
[2017-06-15] MEDS: Albuterol-Ipratrop 3 mg / 0.5 (3 ml) UD INH STA (12:24)
[2017-06-15] MEDS ORDERED: Albuterol-Ipratrop 3 mg / 0.5 (3 ml) UD INH SCH (16:00)
[2017-06-15] MEDS ORDERED: Lidocaine 2% Inj (20ml) ONE (16:23)
[2017-06-15] MEDS ORDERED: Iohexol 350mg/ml 100 ML ONE (16:24)
--- NOTE | 2017-06-15 17:40 | CT ---
PROCEDURE: CT HEAD WITHOUT CONTRAST. HISTORY: AMS COMPARISON: Noncontrast Head CT performed 11/05/13 TECHNIQUE: Axial computed tomography images were obtained through the head/brain without intravenous contrast. Radiation dose: Total exam DLP = 1426.27 mGy-cm. This CT exam was performed using one or more of the following dose reduction techniques: Automated exposure control, adjustment of the mA and/or kV according to patient size, and/or use of iterative reconstruction technique. FINDINGS: Examination limited by motion and streak artifact. HEMORRHAGE: No intracranial hemorrhage. BRAIN: Diffuse atrophy with prominence of the ventricles and sulci noted. No mass effect or edema. Bilateral basal ganglia calcifications. Scattered periventricular and subcortical white matter hypodensities, which are nonspecific, but often seen with chronic microvascular ischemic disease. Please note that MRI with diffusion imaging is more sensitive in the detection of acute ischemic event. VENTRICLES: No hydrocephalus. CALVARIUM: Unremarkable. PARANASAL SINUSES: Unremarkable as visualized. No significant inflammatory changes. MASTOID AIR CELLS: Opacification/fluid within the left mastoid air cells. The right mastoid air cells appear clear. OTHER FINDINGS: None. IMPRESSION: Nonspecific white matter changes. Opacification/fluid within the left mastoid air cells.
[2017-06-15] MEDS: Albuterol-Ipratrop 3 mg / 0.5 (3 ml) UD INH SCH (20:01)
[2017-06-16] MEDS: Albuterol-Ipratrop 3 mg / 0.5 (3 ml) UD INH SCH ×3 (00:07→19:39)
--- NOTE | 2017-06-16 01:29 | HP ---
HISTORY OF PRESENT ILLNESS: The patient is a 76-year-old [place] man with history of multiple medical problems, including coronary artery bypass graft, was admitted after a fall and chest pain. The patient was found to have a troponin of [address]-T wave changes. The patient was admitted to the intensive care unit and Cardiology consult was called to be done by Dr. Arce. The patient at that time of examination was not reliable in his history, as he was not following commands and other review of systems could not be taken at that time of history taking. ALLERGIES: NO KNOWN ALLERGY. HOME MEDICATIONS: Metoprolol 50 mg at bedtime, methimazole 10 mg daily, glipizide 10 mg twice a day, Colace 100 mg three times a day, lovastatin 20 mg daily, aspirin 81 mg daily, Protonix 40 mg daily, metformin 1000 mg twice a day, Tradjenta 5 mg daily, and furosemide 40 mg daily. PAST MEDICAL HISTORY: Type 2 diabetes mellitus, hyperthyroidism, hypertension. SOCIAL HISTORY: No history of smoking, EtOH or substance abuse. FAMILY HISTORY: Not obtainable. PHYSICAL EXAMINATION: GENERAL: The patient is in bed, not in any cardiopulmonary distress at the time of this examination. VITAL SIGNS: Blood pressure 140/63, temperature 98.4, respiratory rate 20 and pulse 100. HEENT: Pupils equal, reactive to light. Normal-appearing mucosa of the conjunctiva, oropharyngeal and nasal membrane mucosa. NECK: Supple. No JVD. No carotid bruit. No lymph node. No thyromegaly. CHEST AND LUNGS: Bilaterally symmetrical expansion. Good air exchange. No rales, no rhonchi. CARDIOVASCULAR SYSTEM: PMI not localized, S1 and S2. No additional sounds. ABDOMEN: Normoactive bowel sounds. No tenderness. No organomegaly. No masses. EXTREMITIES: No cyanosis, no clubbing, no edema. CENTRAL NERVOUS SYSTEM: Alert, awake, oriented x2. No neurological deficit could be appreciated. ASSESSMENT: 1. Non-ST elevation myocardial infarction. 2. Type 2 diabetes mellitus. 3. Hyperthyroidism. 4. Coronary artery disease, status post coronary artery bypass graft. PLAN: Follow Cardiology recommendation. We will order a CAT scan of head and review the patient's home medications. Sameh MD Aleksandar [facility] # [id number]
[2017-06-16 06:51] LABS: BASO % 0.2 % (0.0-2.0); EOS # 0.1 K/uL (0.0-0.7); EOS % 0.6 % (0.0-4.0); HEMATOCRIT 35.8 % (35.0-51.0); LYMPH # 1.1 K/uL (1.0-4.3); LYMPH % 9.7 % (20.0-40.0); MEAN CELL VOLUME 86.3 fL (80.0-94.0); MEAN CORPUSCULAR HEMOGLOBIN 27.9 pg (27.0-31.0); MEAN CORPUSCULAR HGB CONC 32.3 g/dL (33.0-37.0); MEAN PLATELET VOLUME 9.9 fL (7.2-11.7); MONO # 1.2 K/uL (0.0-0.8); MONO % 10.5 % (0.0-10.0); NRBC % 0.1 % (0.0-2.0); PLATELET COUNT 184 K/uL (130-400); RED CELL DISTRIBUTION WIDTH 14.5 % (11.5-14.5); WHITE BLOOD COUNT 11.6 K/uL (4.8-10.8)
[2017-06-16 07:13] LABS: ALB/GLOB RATIO 0.9 (1.0-2.1); ALKALINE PHOSPHATASE 49 U/L (38-126); ALT/SGPT 48 U/L (21-72); AST/SGOT 50 U/L (17-59); BILIRUBIN,TOTAL 1.1 mg/dL (0.2-1.3); BLOOD UREA NITROGEN 18 mg/dL (9-20); CALCIUM 8.9 mg/dl (8.6-10.4); CARBON DIOXIDE 27 mmol/L (22-30); CHLORIDE 99 mmol/L (98-107); GFR AFRICAN-AMERICAN > 60; GLUCOSE,RANDOM 282 mg/dL (75-110); PHOSPHOROUS 3.7 mg/dL (2.5-4.5); POTASSIUM 3.9 mmol/L (3.6-5.2); SODIUM 138 mmol/L (132-148); TOTAL PROTEIN 7.5 g/dL (6.3-8.3)
--- NOTE | 2017-06-16 07:14 | CP.PCM.CON ---
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 Sz Rx PLAVIX CAROTID/EEG/MRI BLOOD WORK UP PER ORDER Past Patient History - Past Medical History & Family History Past Medical History?: Yes - Past Social History Smoking Status: Never Smoked - CARDIAC Hx Cardiac Disorders: Yes Hx Hypercholesterolemia: Yes Hx Hypertension: Yes Other/Comment: CAD - PULMONARY Hx Respiratory Disorders: No - NEUROLOGICAL Hx Neurological Disorder: No - HEENT Hx HEENT Problems: No - RENAL Hx Chronic Kidney Disease: No - ENDOCRINE/METABOLIC Hx Endocrine Disorders: Yes Hx Diabetes Mellitus Type 2: Yes Hx Hyperthyroidism: Yes Hx Hypothyroidism: Yes - HEMATOLOGICAL/ONCOLOGICAL Hx Blood Disorders: No - INTEGUMENTARY Hx Dermatological Problems: No - MUSCULOSKELETAL/RHEUMATOLOGICAL Hx Falls: Yes - GASTROINTESTINAL Hx Gastrointestinal Disorders: No - GENITOURINARY/GYNECOLOGICAL Hx Genitourinary Disorders: No - PSYCHIATRIC Hx Psychophysiologic Disorder: No Hx Substance Use: No - SURGICAL HISTORY Hx Surgeries: Yes Hx Coronary Artery Bypass Graft: Yes (triple vessel 2014) - ANESTHESIA Hx Anesthesia: Yes Hx Anesthesia Reactions: No Hx Malignant Hyperthermia: No Has any member of the family had a problem w/ anesthesia?: No Meds Allergies/Adverse Reactions: Allergies Allergy/AdvReac Type Severity Reaction Status Date / Time No Known Allergies Allergy Verified 09/05/14 16:16 - Medications Medications: Current Medications Albuterol/Ipratropium (Duoneb 3 Mg/0.5 Mg (3 Ml) Ud) 3 ml INH RQ8 [facility] Last Admin: 06/16/17 00:07 Dose: 3 ml Aspirin (Ecotrin) 81 mg PO DAILY [facility] Last Admin: 06/15/17 09:34 Dose: 81 mg Docusate Sodium (Colace) 100 mg PO TID [facility] Last Admin: 06/15/17 18:18 Dose: 100 mg Enoxaparin Sodium (Lovenox) 40 mg SC DAILY [facility] Famotidine (Pepcid) 20 mg IVP DAILY [facility] Last Admin: 06/15/17 09:34 Dose: 20 mg Furosemide (Lasix) 40 mg PO DAILY [facility] Last Admin: 06/15/17 09:34 Dose: 40 mg Glipizide (Glucotrol) 10 mg PO BID [facility] Last Admin: 11/06/17 18:17 Dose: 10 mg Insulin Human Regular (Novolin R) 0 unit SC ACHS [facility] PRN Reason: Protocol Last Admin: 06/15/17 21:33 Dose: Not Given Methimazole (Tapazole) 10 mg PO DAILY [facility] Last Admin: 06/15/17 09:33 Dose: 10 mg Metoprolol Tartrate (Lopressor) 50 mg PO HS [facility] Last Admin: 06/15/17 21:33 Dose: 50 mg Rosuvastatin Calcium (Crestor) 10 mg PO HS [facility] Last Admin: 06/15/17 21:33 Dose: 10 mg Results - Vital Signs Recent Vital Signs: Last Vital Signs Temp 99.5 F 06/15/17 16:00 Pulse 66 06/16/17 06:00 Resp 31 H 06/16/17 06:00 BP 128/61 06/16/17 05:55 Pulse Ox 94 L 06/16/17 06:00 - Labs Result Diagrams: 06/16/17 06:38 06/15/17 06:13 Labs: Laboratory Results - last 24 hr 06/15/17 06/15/17 06/15/17 08:24 12:09 13:54 WBC RBC Hgb Hct MCV MCH MCHC RDW Plt Count MPV Neut % (Auto) Lymph % (Auto) [place] % (Auto) Eos % (Auto) Baso % (Auto) Neut # Lymph # [place] # Eos # Baso # POC Glucose (mg/dL) 259 H 308 H Total Creatine Kinase 544 H CK-MB (Mass) 10.2 H Troponin I, Quant 13.0000 H* 06/15/17 06/15/17 06/15/17 16:39 21:17 22:18 WBC RBC Hgb Hct MCV MCH MCHC RDW Plt Count MPV Neut % (Auto) Lymph % (Auto) [place] % (Auto) Eos % (Auto) Baso % (Auto) Neut # Lymph # [place] # Eos # Baso # POC Glucose (mg/dL) 246 H 333 H Total Creatine Kinase 399 H CK-MB (Mass) 5.79 H Troponin I, Quant 9.9400 H* 06/16/17 06:38 WBC 11.6 H RBC 4.15 L Hgb 11.6 L Hct 35.8 MCV 86.3 MCH 27.9 MCHC 32.3 L RDW 14.5 Plt Count 184 MPV 9.9 Neut % (Auto) 79.0 H Lymph % (Auto) 9.7 L [place] % (Auto) 10.5 H Eos % (Auto) 0.6 Baso % (Auto) 0.2 Neut # 9.2 H Lymph # 1.1 [place] # 1.2 H Eos # 0.1 Baso # 0.0 POC Glucose (mg/dL) Total Creatine Kinase CK-MB (Mass) Troponin I, Quant
--- NOTE | 2017-06-16 07:42 | CP.CCUPN ---
<AndraSamanta L. - Last Filed: 06/16/17 12:11> CCU Subjective - Physician Review Subjective (Free Text): Patient seen and examined at bedside and in no acute distress. Patient less confused and more awake today. Patient does not know year when asked and says 1974 and then 2074. Patient does know he is in the hospital and can name the president. Patient denies chest pain, abdominal pain, nausea, vomiting, constipation, or diarrhea. 06/16/17 11:20 CCU Objective - Vital Signs / Intake & Output Vital Signs (Last 4 hours): Vital Signs Pulse Resp BP Pulse Ox 06/16/17 06:00 66 31 H 94 L 06/16/17 05:55 128/61 06/16/17 05:00 62 28 H 93 L 06/16/17 04:55 116/58 L 06/16/17 04:00 71 31 H 97 06/16/17 03:55 61 29 H 122/56 L 96 Intake and Output (Last 8hrs): Intake & Output 06/15/17 06/16/17 06/16/17 22:59 06:59 14:59 Intake Total 360 0 Output Total 200 Balance 160 0 Weight 205 lb 2 oz Intake: Oral 360 0 Output: Urine 200 Urine, Voided 200 Other: # Voids Urine, Voided 1 # Bowel Movements 0 - Physical Exam Head: Positive for: Atraumatic, Normocephalic Pupils: Positive for: PERRL Mouth: Positive for: Moist Mucous Membranes Respiratory/Chest: Positive for: Rhonchi. Negative for: Respiratory Distress, Accessory Muscle Use Cardiovascular: Positive for: Regular Rate and Rhythm, Normal S1, S2 Abdomen: Positive for: Normal Bowel Sounds. Negative for: Tenderness, Distention Upper Extremity: Positive for: Normal Inspection Lower Extremity: Positive for: Edema, Erythema. Negative for: Normal Inspection Neurological: Positive for: GCS=15 Skin: Positive for: Warm, Dry, Erythematous Psychiatric: Positive for: Alert. Negative for: Oriented x 3 - Medications Active Medications: Active Medications Generic Name Dose Route Start Last Admin Trade Name Freq PRN Reason Stop Dose Admin Albuterol/Ipratropium 3 ml 06/15/17 12:01 06/16/17 00:07 Duoneb 3 Mg/0.5 Mg (3 Ml) Ud INH 3 ml RQ8 GRACIE Administration Aspirin 81 mg 06/15/17 10:00 06/15/17 09:34 Ecotrin PO 81 mg DAILY GRACIE Administration Clopidogrel Bisulfate 75 mg 06/16/17 10:00 Plavix PO DAILY GRACIE Docusate Sodium 100 mg 06/15/17 10:00 06/15/17 18:18 Colace PO 100 mg TID GRACIE Administration Enoxaparin Sodium 40 mg 06/16/17 10:00 Lovenox SC DAILY GRACIE Famotidine 20 mg 06/15/17 10:00 06/15/17 09:34 Pepcid IVP 20 mg DAILY GRACIE Administration Furosemide 40 mg 06/15/17 10:00 06/15/17 09:34 Lasix PO 40 mg DAILY GRACIE Administration Glipizide 10 mg 06/15/17 10:00 06/15/17 18:17 Glucotrol PO 10 mg BID GRACIE Administration Insulin Human Regular 0 unit 06/14/17 22:00 06/15/17 21:33 Novolin R SC Not Given ACHS [facility] Protocol Methimazole 10 mg 06/15/17 10:00 06/15/17 09:33 Tapazole PO 10 mg DAILY GRACIE Administration Metoprolol Tartrate 50 mg 06/14/17 22:00 06/15/17 21:33 Lopressor PO 50 mg HS GRACIE Administration Rosuvastatin Calcium 10 mg 06/15/17 22:00 06/15/17 21:33 Crestor PO 10 mg HS GRACIE Administration - Patient Studies Lab Studies: Lab Studies 06/16/17 06/16/17 06/16/17 Range/Units 07:33 06:38 06:38 WBC 11.6 H (4.8-10.8) K/uL RBC 4.15 L (4.40-5.90) Mil/uL Hgb 11.6 L (12.0-18.0) g/dL Hct 35.8 (35.0-51.0) % MCV 86.3 (80.0-94.0) fL MCH 27.9 (27.0-31.0) pg MCHC 32.3 L (33.0-37.0) g/dL RDW 14.5 (11.5-14.5) % Plt Count 184 (130-400) K/uL MPV 9.9 (7.2-11.7) fL Neut % (Auto) 79.0 H (50.0-75.0) % Lymph % (Auto) 9.7 L (20.0-40.0) % Waldo % (Auto) 10.5 H (0.0-10.0) % Eos % (Auto) 0.6 (0.0-4.0) % Baso % (Auto) 0.2 (0.0-2.0) % Neut # 9.2 H (1.8-7.0) K/uL Lymph # 1.1 (1.0-4.3) K/uL Waldo # 1.2 H (0.0-0.8) K/uL Eos # 0.1 (0.0-0.7) K/uL Baso # 0.0 (0.0-0.2) K/uL Sodium 138 (132-148) mmol/L Potassium 3.9 (3.6-5.2) mmol/L Chloride 99 (98-107) mmol/L Carbon Dioxide 27 (22-30) mmol/L Anion Gap 16 (10-20) BUN 18 (9-20) mg/dL Creatinine 1.1 (0.8-1.5) mg/dL Est GFR ( Amer) > 60 Est GFR (Non-Af Amer) > 60 POC Glucose (mg/dL) 288 H (65-110) mg/dL Random Glucose 282 H (75-110) mg/dL Calcium 8.9 (8.6-10.4) mg/dl Phosphorus 3.7 (2.5-4.5) mg/dL Magnesium 2.0 (1.6-2.3) mg/dL Total Bilirubin 1.1 (0.2-1.3) mg/dL AST 50 (17-59) U/L ALT 48 (21-72) U/L Alkaline Phosphatase 49 (38-126) U/L Total Creatine Kinase (55-170) U/L CK-MB (Mass) (0.0-3.38) ng/mL Troponin I 11.7000 H* (0.00-0.120) ng/mL Troponin I, Quant (0.00-0.120) ng/mL Total Protein 7.5 (6.3-8.3) g/dL Albumin 3.6 (3.5-5.0) g/dL Globulin 3.9 (2.2-3.9) gm/dL Albumin/Globulin Ratio 0.9 L (1.0-2.1) 06/15/17 06/15/17 06/15/17 Range/Units 22:18 21:17 16:39 WBC (4.8-10.8) K/uL RBC (4.40-5.90) Mil/uL Hgb (12.0-18.0) g/dL Hct (35.0-51.0) % MCV (80.0-94.0) fL MCH (27.0-31.0) pg MCHC (33.0-37.0) g/dL RDW (11.5-14.5) % Plt Count (130-400) K/uL MPV (7.2-11.7) fL Neut % (Auto) (50.0-75.0) % Lymph % (Auto) (20.0-40.0) % Waldo % (Auto) (0.0-10.0) % Eos % (Auto) (0.0-4.0) % Baso % (Auto) (0.0-2.0) % Neut # (1.8-7.0) K/uL Lymph # (1.0-4.3) K/uL Waldo # (0.0-0.8) K/uL Eos # (0.0-0.7) K/uL Baso # (0.0-0.2) K/uL Sodium (132-148) mmol/L Potassium (3.6-5.2) mmol/L Chloride (98-107) mmol/L Carbon Dioxide (22-30) mmol/L Anion Gap (10-20) BUN (9-20) mg/dL Creatinine (0.8-1.5) mg/dL Est GFR ( Amer) Est GFR (Non-Af Amer) POC Glucose (mg/dL) 333 H 246 H (65-110) mg/dL Random Glucose (75-110) mg/dL Calcium (8.6-10.4) mg/dl Phosphorus (2.5-4.5) mg/dL Magnesium (1.6-2.3) mg/dL Total Bilirubin (0.2-1.3) mg/dL AST (17-59) U/L ALT (21-72) U/L Alkaline Phosphatase (38-126) U/L Total Creatine Kinase 399 H (55-170) U/L CK-MB (Mass) 5.79 H (0.0-3.38) ng/mL Troponin I (0.00-0.120) ng/mL Troponin I, Quant 9.9400 H* (0.00-0.120) ng/mL Total Protein (6.3-8.3) g/dL Albumin (3.5-5.0) g/dL Globulin (2.2-3.9) gm/dL Albumin/Globulin Ratio (1.0-2.1) 06/15/17 06/15/17 06/15/17 Range/Units 13:54 12:09 08:24 WBC (4.8-10.8) K/uL RBC (4.40-5.90) Mil/uL Hgb (12.0-18.0) g/dL Hct (35.0-51.0) % MCV (80.0-94.0) fL MCH (27.0-31.0) pg MCHC (33.0-37.0) g/dL RDW (11.5-14.5) % Plt Count (130-400) K/uL MPV (7.2-11.7) fL Neut % (Auto) (50.0-75.0) % Lymph % (Auto) (20.0-40.0) % Waldo % (Auto) (0.0-10.0) % Eos % (Auto) (0.0-4.0) % Baso % (Auto) (0.0-2.0) % Neut # (1.8-7.0) K/uL Lymph # (1.0-4.3) K/uL Waldo # (0.0-0.8) K/uL Eos # (0.0-0.7) K/uL Baso # (0.0-0.2) K/uL Sodium (132-148) mmol/L Potassium (3.6-5.2) mmol/L Chloride (98-107) mmol/L Carbon Dioxide (22-30) mmol/L Anion Gap (10-20) BUN (9-20) mg/dL Creatinine (0.8-1.5) mg/dL Est GFR ( Amer) Est GFR (Non-Af Amer) POC Glucose (mg/dL) 308 H 259 H (65-110) mg/dL Random Glucose (75-110) mg/dL Calcium (8.6-10.4) mg/dl Phosphorus (2.5-4.5) mg/dL Magnesium (1.6-2.3) mg/dL Total Bilirubin (0.2-1.3) mg/dL AST (17-59) U/L ALT (21-72) U/L Alkaline Phosphatase (38-126) U/L Total Creatine Kinase 544 H (55-170) U/L CK-MB (Mass) 10.2 H (0.0-3.38) ng/mL Troponin I (0.00-0.120) ng/mL Troponin I, Quant 13.0000 H* (0.00-0.120) ng/mL Total Protein (6.3-8.3) g/dL Albumin (3.5-5.0) g/dL Globulin (2.2-3.9) gm/dL Albumin/Globulin Ratio (1.0-2.1) Laboratory Results - last 24 hr 06/15/17 06/15/17 06/15/17 08:24 12:09 13:54 WBC RBC Hgb Hct MCV MCH MCHC RDW Plt Count MPV Neut % (Auto) Lymph % (Auto) Waldo % (Auto) Eos % (Auto) Baso % (Auto) Neut # Lymph # Waldo # Eos # Baso # Sodium Potassium Chloride Carbon Dioxide Anion Gap BUN Creatinine Est GFR ( Amer) Est GFR (Non-Af Amer) POC Glucose (mg/dL) 259 H 308 H Random Glucose Calcium Phosphorus Magnesium Total Bilirubin AST ALT Alkaline Phosphatase Total Creatine Kinase 544 H CK-MB (Mass) 10.2 H Troponin I Troponin I, Quant 13.0000 H* Total Protein Albumin Globulin Albumin/Globulin Ratio 06/15/17 06/15/17 06/15/17 16:39 21:17 22:18 WBC RBC Hgb Hct MCV MCH MCHC RDW Plt Count MPV Neut % (Auto) Lymph % (Auto) Waldo % (Auto) Eos % (Auto) Baso % (Auto) Neut # Lymph # Waldo # Eos # Baso # Sodium Potassium Chloride Carbon Dioxide Anion Gap BUN Creatinine Est GFR ( Amer) Est GFR (Non-Af Amer) POC Glucose (mg/dL) 246 H 333 H Random Glucose Calcium Phosphorus Magnesium Total Bilirubin AST ALT Alkaline Phosphatase Total Creatine Kinase 399 H CK-MB (Mass) 5.79 H Troponin I Troponin I, Quant 9.9400 H* Total Protein Albumin Globulin Albumin/Globulin Ratio 06/16/17 06/16/17 06/16/17 06:38 06:38 07:33 WBC 11.6 H RBC 4.15 L Hgb 11.6 L Hct 35.8 MCV 86.3 MCH 27.9 MCHC 32.3 L RDW 14.5 Plt Count 184 MPV 9.9 Neut % (Auto) 79.0 H Lymph % (Auto) 9.7 L Waldo % (Auto) 10.5 H Eos % (Auto) 0.6 Baso % (Auto) 0.2 Neut # 9.2 H Lymph # 1.1 Waldo # 1.2 H Eos # 0.1 Baso # 0.0 Sodium 138 Potassium 3.9 Chloride 99 Carbon Dioxide 27 Anion Gap 16 BUN 18 Creatinine 1.1 Est GFR ( Amer) > 60 Est GFR (Non-Af Amer) > 60 POC Glucose (mg/dL) 288 H Random Glucose 282 H Calcium 8.9 Phosphorus 3.7 Magnesium 2.0 Total Bilirubin 1.1 AST 50 ALT 48 Alkaline Phosphatase 49 Total Creatine Kinase CK-MB (Mass) Troponin I 11.7000 H* Troponin I, Quant Total Protein 7.5 Albumin 3.6 Globulin 3.9 Albumin/Globulin Ratio 0.9 L EKG/Cardiology Studies: Cardiology / EKG Studies 06/16/17 01:12 EKG [ELECTROCARDIOGRAM] Routine Comment: Mode Of Transportation: PORTABLE Reason For Exam: change in heart rhythm Isolation: Droplet Fingerstick Blood Sugar Results: 333 Review of Systems - Constitutional Constitutional: absent: Fever, Chills, Sweats, Weakness - Cardiovascular Cardiovascular: absent: Chest Pain, Dyspnea, Palpitations - Respiratory Respiratory: absent: Cough - Gastrointestinal Gastrointestinal: absent: Constipation, Diarrhea, Nausea, Vomiting - Genitourinary Genitourinary: absent: Difficulty Urinating - Musculoskeletal Musculoskeletal: absent: Numbness, Tingling - Integumentary Integumentary: Erythema - Neurological Neurological: Confusion - Psychiatric Psychiatric: Confusion - Hematologic/Lymphatic Hematologic: absent: Easy Bleeding, Easy Bruising Critical Care Progress Note - Nutrition Nutrition: Nutrition Category Date Time Status Heart Healthy Diet [DIET] Diets 06/15/17 Dinner Active Assessment/Plan - Assessment and Plan (Free Text) Assessment: 76-year-old male with a history of diabetes, hyperthyroidism, hypertension, high cholesterol, CAD, triple vessel bypass, hypercholesterolemia, chronic pedal edema s/p fall with NSTEMI on admission with new onset AMS on 06/15 Neuro: AMS Dr. Aguirre consulted Head CT: nonspecific white matter changes. opacification/ fluid within the left mastoid air cells. f/u MRI, EEG -carotid dopplers (06/16): negative Cardio: hx HTN, high cholesterol, hypercholesterolemia, triple vessel bypass -Metoprolol 50mg PO HS -Rosuvastatin 10mg PO HS -Plavix 75 mg po daily -ASA 81mg po daily -Lovenox 60mg sc q12h -Cardiac Cath cancelled yesterday due to AMS -Cardiac cath rescheduled for 06/17 in AM Pulm: -Cxray 06/14: median sternotomy wires with evidence of CABG, heart size appears normal, atherosclerotic calcifications of the aorta, right hilar prominence -Duonebs q8h -Lasix 40mg po daily Endo: hx DM, hyperthryroidism -Glipizide 10 mg po BID -ISS ACHS -accuchecks ACHS -Methimazole 10mg PO daily -HgA1C:8.2 -lipids: Triglycerides: 90, Cholesterol 102, LDL 57, HDL 33, Vit B12 226, Homocysteine 10.3 -f/u methylmalonic acid -Free t4: 1.23, TSH: 1.44 -Prolactin: 9 GI: constipation Colace 100 mg po TID Prophylaxis: GI: Pepcid 20mg IVP daily DVT: SCDs, Lovenox 60mg sc q12h <Nicanor Avila - Last Filed: 06/16/17 18:53> CCU Objective - Vital Signs / Intake & Output Vital Signs (Last 4 hours): Vital Signs Temp Pulse Resp BP Pulse Ox 06/16/17 18:11 74 31 H 169/72 H 94 L 06/16/17 18:00 79 30 H 94 L 06/16/17 17:56 95 H 26 H 159/87 H 95 06/16/17 17:00 75 27 H 94 L 06/16/17 16:56 65 19 128/54 L 95 06/16/17 16:00 97.3 F L 66 29 H 95 06/16/17 15:56 64 26 H 124/58 L 94 L 06/16/17 15:00 67 22 97 06/16/17 14:56 67 32 H 131/49 L 96 Intake and Output (Last 8hrs): Intake & Output 06/16/17 06/16/17 06/16/17 06:59 14:59 22:59 Intake Total 0 500 250 Output Total 470 Balance 0 30 250 Weight 205 lb 2 oz Intake: Oral 0 500 250 Output: Urine 470 Urine, Voided 470 Other: # Voids Urine, Voided 1 # Bowel Movements 0 0 0 - Medications Active Medications: Active Medications Generic Name Dose Route Start Last Admin Trade Name Freq PRN Reason Stop Dose Admin Acetaminophen 650 mg 06/16/17 17:16 06/16/17 17:26 Tylenol 325mg Tab PO 650 mg Q6 PRN Administration Pain, moderate (4-7) Albuterol/Ipratropium 3 ml 06/15/17 12:01 06/16/17 07:59 Duoneb 3 Mg/0.5 Mg (3 Ml) Ud INH 3 ml RQ8 GRACIE Administration Aspirin 81 mg 06/15/17 10:00 06/16/17 09:44 Ecotrin PO 81 mg DAILY GRACIE Administration Clopidogrel Bisulfate 75 mg 06/16/17 10:00 06/16/17 09:43 Plavix PO 75 mg DAILY GRACIE Administration Docusate Sodium 100 mg 06/15/17 10:00 06/16/17 17:01 Colace PO 100 mg TID GRACIE Administration Enoxaparin Sodium 40 mg 06/16/17 10:00 06/16/17 09:47 Lovenox SC 40 mg DAILY GRACIE Administration Famotidine 20 mg 06/15/17 10:00 06/16/17 09:44 Pepcid IVP 20 mg DAILY GRACIE Administration Furosemide 40 mg 06/15/17 10:00 06/16/17 09:43 Lasix PO 40 mg DAILY GRACIE Administration Glipizide 10 mg 06/15/17 10:00 06/16/17 17:01 Glucotrol PO 10 mg BID GRACIE Administration Insulin Human Regular 0 unit 06/14/17 22:00 06/16/17 16:47 Novolin R SC 5 unit ACHS GRACIE Administration Protocol Methimazole 10 mg 06/15/17 10:00 06/16/17 09:44 Tapazole PO 10 mg DAILY GRACIE Administration Metoprolol Tartrate 50 mg 06/14/17 22:00 06/15/17 21:33 Lopressor PO 50 mg HS GRACIE Administration Rosuvastatin Calcium 10 mg 06/15/17 22:00 06/15/17 21:33 Crestor PO 10 mg HS GRACIE Administration - Patient Studies Lab Studies: Microbiology Studies 06/14/17 22:40 MRSA Culture (Admit) - Final Nose MRSA NOT DETECTED Lab Studies 06/16/17 06/16/17 06/16/17 Range/Units 16:15 11:48 07:51 WBC (4.8-10.8) K/uL RBC (4.40-5.90) Mil/uL Hgb (12.0-18.0) g/dL Hct (35.0-51.0) % MCV (80.0-94.0) fL MCH (27.0-31.0) pg MCHC (33.0-37.0) g/dL RDW (11.5-14.5) % Plt Count (130-400) K/uL MPV (7.2-11.7) fL Neut % (Auto) (50.0-75.0) % Lymph % (Auto) (20.0-40.0) % Waldo % (Auto) (0.0-10.0) % Eos % (Auto) (0.0-4.0) % Baso % (Auto) (0.0-2.0) % Neut # (1.8-7.0) K/uL Lymph # (1.0-4.3) K/uL Waldo # (0.0-0.8) K/uL Eos # (0.0-0.7) K/uL Baso # (0.0-0.2) K/uL Neutrophils % (Manual) (50-75) % Lymphocytes % (Manual) (20-40) % Monocytes % (Manual) (0-10) % Platelet Estimate (NORMAL) RBC Morphology Sodium (132-148) mmol/L Potassium (3.6-5.2) mmol/L Chloride (98-107) mmol/L Carbon Dioxide (22-30) mmol/L Anion Gap (10-20) BUN (9-20) mg/dL Creatinine (0.8-1.5) mg/dL Est GFR ( Amer) Est GFR (Non-Af Amer) POC Glucose (mg/dL) 350 H 366 H (65-110) mg/dL Random Glucose (75-110) mg/dL Hemoglobin A1c (4.2-6.5) % Calcium (8.6-10.4) mg/dl Phosphorus (2.5-4.5) mg/dL Magnesium (1.6-2.3) mg/dL Total Bilirubin (0.2-1.3) mg/dL AST (17-59) U/L ALT (21-72) U/L Alkaline Phosphatase (38-126) U/L Total Creatine Kinase (55-170) U/L CK-MB (Mass) (0.0-3.38) ng/mL Troponin I (0.00-0.120) ng/mL Troponin I, Quant (0.00-0.120) ng/mL Total Protein (6.3-8.3) g/dL Albumin (3.5-5.0) g/dL Globulin (2.2-3.9) gm/dL Albumin/Globulin Ratio (1.0-2.1) Triglycerides (0-149) mg/dL Cholesterol (0-199) mg/dL LDL Cholesterol Direct (0-129) mg/dL HDL Cholesterol (30-70) mg/dL Vitamin B12 (239-931) pg/mL Homocysteine (6.6-14.8) umol/L Free T4 (0.78-2.19) ng/dL TSH 3rd Generation (0.46-4.68) mIU/L Prolactin (3.7-17.9) ng/mL RPR Nonreactive (NONREACTIVE) 06/16/17 06/16/17 06/16/17 Range/Units 07:51 07:51 07:51 WBC (4.8-10.8) K/uL RBC (4.40-5.90) Mil/uL Hgb (12.0-18.0) g/dL Hct (35.0-51.0) % MCV (80.0-94.0) fL MCH (27.0-31.0) pg MCHC (33.0-37.0) g/dL RDW (11.5-14.5) % Plt Count (130-400) K/uL MPV (7.2-11.7) fL Neut % (Auto) (50.0-75.0) % Lymph % (Auto) (20.0-40.0) % Waldo % (Auto) (0.0-10.0) % Eos % (Auto) (0.0-4.0) % Baso % (Auto) (0.0-2.0) % Neut # (1.8-7.0) K/uL Lymph # (1.0-4.3) K/uL Waldo # (0.0-0.8) K/uL Eos # (0.0-0.7) K/uL Baso # (0.0-0.2) K/uL Neutrophils % (Manual) (50-75) % Lymphocytes % (Manual) (20-40) % Monocytes % (Manual) (0-10) % Platelet Estimate (NORMAL) RBC Morphology Sodium (132-148) mmol/L Potassium (3.6-5.2) mmol/L Chloride (98-107) mmol/L Carbon Dioxide (22-30) mmol/L Anion Gap (10-20) BUN (9-20) mg/dL Creatinine (0.8-1.5) mg/dL Est GFR ( Amer) Est GFR (Non-Af Amer) POC Glucose (mg/dL) (65-110) mg/dL Random Glucose (75-110) mg/dL Hemoglobin A1c 8.2 H (4.2-6.5) % Calcium (8.6-10.4) mg/dl Phosphorus (2.5-4.5) mg/dL Magnesium (1.6-2.3) mg/dL Total Bilirubin (0.2-1.3) mg/dL AST (17-59) U/L ALT (21-72) U/L Alkaline Phosphatase (38-126) U/L Total Creatine Kinase (55-170) U/L CK-MB (Mass) (0.0-3.38) ng/mL Troponin I (0.00-0.120) ng/mL Troponin I, Quant (0.00-0.120) ng/mL Total Protein (6.3-8.3) g/dL Albumin (3.5-5.0) g/dL Globulin (2.2-3.9) gm/dL Albumin/Globulin Ratio (1.0-2.1) Triglycerides 90 (0-149) mg/dL Cholesterol 102 (0-199) mg/dL LDL Cholesterol Direct 57 (0-129) mg/dL HDL Cholesterol 33 (30-70) mg/dL Vitamin B12 226 L (239-931) pg/mL Homocysteine 10.3 (6.6-14.8) umol/L Free T4 1.23 (0.78-2.19) ng/dL TSH 3rd Generation 1.44 (0.46-4.68) mIU/L Prolactin 9.0 (3.7-17.9) ng/mL RPR (NONREACTIVE) 06/16/17 06/16/17 06/16/17 Range/Units 07:33 06:38 06:38 WBC 11.6 H (4.8-10.8) K/uL RBC 4.15 L (4.40-5.90) Mil/uL Hgb 11.6 L (12.0-18.0) g/dL Hct 35.8 (35.0-51.0) % MCV 86.3 (80.0-94.0) fL MCH 27.9 (27.0-31.0) pg MCHC 32.3 L (33.0-37.0) g/dL RDW 14.5 (11.5-14.5) % Plt Count 184 (130-400) K/uL MPV 9.9 (7.2-11.7) fL Neut % (Auto) 79.0 H (50.0-75.0) % Lymph % (Auto) 9.7 L (20.0-40.0) % Waldo % (Auto) 10.5 H (0.0-10.0) % Eos % (Auto) 0.6 (0.0-4.0) % Baso % (Auto) 0.2 (0.0-2.0) % Neut # 9.2 H (1.8-7.0) K/uL Lymph # 1.1 (1.0-4.3) K/uL Waldo # 1.2 H (0.0-0.8) K/uL Eos # 0.1 (0.0-0.7) K/uL Baso # 0.0 (0.0-0.2) K/uL Neutrophils % (Manual) 79 H (50-75) % Lymphocytes % (Manual) 12 L (20-40) % Monocytes % (Manual) 9 (0-10) % Platelet Estimate Normal (NORMAL) RBC Morphology Normal Sodium 138 (132-148) mmol/L Potassium 3.9 (3.6-5.2) mmol/L Chloride 99 (98-107) mmol/L Carbon Dioxide 27 (22-30) mmol/L Anion Gap 16 (10-20) BUN 18 (9-20) mg/dL Creatinine 1.1 (0.8-1.5) mg/dL Est GFR ( Amer) > 60 Est GFR (Non-Af Amer) > 60 POC Glucose (mg/dL) 288 H (65-110) mg/dL Random Glucose 282 H (75-110) mg/dL Hemoglobin A1c (4.2-6.5) % Calcium 8.9 (8.6-10.4) mg/dl Phosphorus 3.7 (2.5-4.5) mg/dL Magnesium 2.0 (1.6-2.3) mg/dL Total Bilirubin 1.1 (0.2-1.3) mg/dL AST 50 (17-59) U/L ALT 48 (21-72) U/L Alkaline Phosphatase 49 (38-126) U/L Total Creatine Kinase (55-170) U/L CK-MB (Mass) (0.0-3.38) ng/mL Troponin I 11.7000 H* (0.00-0.120) ng/mL Troponin I, Quant (0.00-0.120) ng/mL Total Protein 7.5 (6.3-8.3) g/dL Albumin 3.6 (3.5-5.0) g/dL Globulin 3.9 (2.2-3.9) gm/dL Albumin/Globulin Ratio 0.9 L (1.0-2.1) Triglycerides (0-149) mg/dL Cholesterol (0-199) mg/dL LDL Cholesterol Direct (0-129) mg/dL HDL Cholesterol (30-70) mg/dL Vitamin B12 (239-931) pg/mL Homocysteine (6.6-14.8) umol/L Free T4 (0.78-2.19) ng/dL TSH 3rd Generation (0.46-4.68) mIU/L Prolactin (3.7-17.9) ng/mL RPR (NONREACTIVE) 06/15/17 06/15/17 Range/Units 22:18 21:17 WBC (4.8-10.8) K/uL RBC (4.40-5.90) Mil/uL Hgb (12.0-18.0) g/dL Hct (35.0-51.0) % MCV (80.0-94.0) fL MCH (27.0-31.0) pg MCHC (33.0-37.0) g/dL RDW (11.5-14.5) % Plt Count (130-400) K/uL MPV (7.2-11.7) fL Neut % (Auto) (50.0-75.0) % Lymph % (Auto) (20.0-40.0) % Waldo % (Auto) (0.0-10.0) % Eos % (Auto) (0.0-4.0) % Baso % (Auto) (0.0-2.0) % Neut # (1.8-7.0) K/uL Lymph # (1.0-4.3) K/uL Waldo # (0.0-0.8) K/uL Eos # (0.0-0.7) K/uL Baso # (0.0-0.2) K/uL Neutrophils % (Manual) (50-75) % Lymphocytes % (Manual) (20-40) % Monocytes % (Manual) (0-10) % Platelet Estimate (NORMAL) RBC Morphology Sodium (132-148) mmol/L Potassium (3.6-5.2) mmol/L Chloride (98-107) mmol/L Carbon Dioxide (22-30) mmol/L Anion Gap (10-20) BUN (9-20) mg/dL Creatinine (0.8-1.5) mg/dL Est GFR ( Amer) Est GFR (Non-Af Amer) POC Glucose (mg/dL) 333 H (65-110) mg/dL Random Glucose (75-110) mg/dL Hemoglobin A1c (4.2-6.5) % Calcium (8.6-10.4) mg/dl Phosphorus (2.5-4.5) mg/dL Magnesium (1.6-2.3) mg/dL Total Bilirubin (0.2-1.3) mg/dL AST (17-59) U/L ALT (21-72) U/L Alkaline Phosphatase (38-126) U/L Total Creatine Kinase 399 H (55-170) U/L CK-MB (Mass) 5.79 H (0.0-3.38) ng/mL Troponin I (0.00-0.120) ng/mL Troponin I, Quant 9.9400 H* (0.00-0.120) ng/mL Total Protein (6.3-8.3) g/dL Albumin (3.5-5.0) g/dL Globulin (2.2-3.9) gm/dL Albumin/Globulin Ratio (1.0-2.1) Triglycerides (0-149) mg/dL Cholesterol (0-199) mg/dL LDL Cholesterol Direct (0-129) mg/dL HDL Cholesterol (30-70) mg/dL Vitamin B12 (239-931) pg/mL Homocysteine (6.6-14.8) umol/L Free T4 (0.78-2.19) ng/dL TSH 3rd Generation (0.46-4.68) mIU/L Prolactin (3.7-17.9) ng/mL RPR (NONREACTIVE) Laboratory Results - last 24 hr 06/15/17 06/15/17 06/16/17 21:17 22:18 06:38 WBC 11.6 H RBC 4.15 L Hgb 11.6 L Hct 35.8 MCV 86.3 MCH 27.9 MCHC 32.3 L RDW 14.5 Plt Count 184 MPV 9.9 Neut % (Auto) 79.0 H Lymph % (Auto) 9.7 L Waldo % (Auto) 10.5 H Eos % (Auto) 0.6 Baso % (Auto) 0.2 Neut # 9.2 H Lymph # 1.1 Waldo # 1.2 H Eos # 0.1 Baso # 0.0 Neutrophils % (Manual) 79 H Lymphocytes % (Manual) 12 L Monocytes % (Manual) 9 Platelet Estimate Normal RBC Morphology Normal Sodium Potassium Chloride Carbon Dioxide Anion Gap BUN Creatinine Est GFR ( Amer) Est GFR (Non-Af Amer) POC Glucose (mg/dL) 333 H Random Glucose Hemoglobin A1c Calcium Phosphorus Magnesium Total Bilirubin AST ALT Alkaline Phosphatase Total Creatine Kinase 399 H CK-MB (Mass) 5.79 H Troponin I Troponin I, Quant 9.9400 H* Total Protein Albumin Globulin Albumin/Globulin Ratio Triglycerides Cholesterol LDL Cholesterol Direct HDL Cholesterol Vitamin B12 Homocysteine Free T4 TSH 3rd Generation Prolactin RPR 06/16/17 06/16/17 06/16/17 06:38 07:33 07:51 WBC RBC Hgb Hct MCV MCH MCHC RDW Plt Count MPV Neut % (Auto) Lymph % (Auto) Waldo % (Auto) Eos % (Auto) Baso % (Auto) Neut # Lymph # [place] # Eos # Baso # Neutrophils % (Manual) Lymphocytes % (Manual) Monocytes % (Manual) Platelet Estimate RBC Morphology Sodium 138 Potassium 3.9 Chloride 99 Carbon Dioxide 27 Anion Gap 16 BUN 18 Creatinine 1.1 Est GFR ( Amer) > 60 Est GFR (Non-Af Amer) > 60 POC Glucose (mg/dL) 288 H Random Glucose 282 H Hemoglobin A1c Calcium 8.9 Phosphorus 3.7 Magnesium 2.0 Total Bilirubin 1.1 AST 50 ALT 48 Alkaline Phosphatase 49 Total Creatine Kinase CK-MB (Mass) Troponin I 11.7000 H* Troponin I, Quant Total Protein 7.5 Albumin 3.6 Globulin 3.9 Albumin/Globulin Ratio 0.9 L Triglycerides 90 Cholesterol 102 LDL Cholesterol Direct 57 HDL Cholesterol 33 Vitamin B12 226 L Homocysteine 10.3 Free T4 TSH 3rd Generation Prolactin 9.0 RPR 06/16/17 06/16/17 06/16/17 07:51 07:51 07:51 WBC RBC Hgb Hct MCV MCH MCHC RDW Plt Count MPV Neut % (Auto) Lymph % (Auto) [place]do % (Auto) Eos % (Auto) Baso % (Auto) Neut # Lymph # [place] # Eos # Baso # Neutrophils % (Manual) Lymphocytes % (Manual) Monocytes % (Manual) Platelet Estimate RBC Morphology Sodium Potassium Chloride Carbon Dioxide Anion Gap BUN Creatinine Est GFR ( Amer) Est GFR (Non-Af Amer) POC Glucose (mg/dL) Random Glucose Hemoglobin A1c 8.2 H Calcium Phosphorus Magnesium Total Bilirubin AST ALT Alkaline Phosphatase Total Creatine Kinase CK-MB (Mass) Troponin I Troponin I, Quant Total Protein Albumin Globulin Albumin/Globulin Ratio Triglycerides Cholesterol LDL Cholesterol Direct HDL Cholesterol Vitamin B12 Homocysteine Free T4 1.23 TSH 3rd Generation 1.44 Prolactin RPR Nonreactive 06/16/17 06/16/17 11:48 16:15 WBC RBC Hgb Hct MCV MCH MCHC RDW Plt Count MPV Neut % (Auto) Lymph % (Auto) [place] % (Auto) Eos % (Auto) Baso % (Auto) Neut # Lymph # [place] # Eos # Baso # Neutrophils % (Manual) Lymphocytes % (Manual) Monocytes % (Manual) Platelet Estimate RBC Morphology Sodium Potassium Chloride Carbon Dioxide Anion Gap BUN Creatinine Est GFR ( Amer) Est GFR (Non-Af Amer) POC Glucose (mg/dL) 366 H 350 H Random Glucose Hemoglobin A1c Calcium Phosphorus Magnesium Total Bilirubin AST ALT Alkaline Phosphatase Total Creatine Kinase CK-MB (Mass) Troponin I Troponin I, Quant Total Protein Albumin Globulin Albumin/Globulin Ratio Triglycerides Cholesterol LDL Cholesterol Direct HDL Cholesterol Vitamin B12 Homocysteine Free T4 TSH 3rd Generation Prolactin RPR EKG/Cardiology Studies: Cardiology / EKG Studies 06/16/17 01:12 EKG [ELECTROCARDIOGRAM] Routine Comment: Mode Of Transportation: PORTABLE Reason For Exam: change in heart rhythm Isolation: Droplet Critical Care Progress Note - Nutrition Nutrition: Nutrition Category Date Time Status NPO Diet [DIET] Diets 06/16/17 Breakfast Active Attending/Attestation - Attestation I have personally seen and examined this patient.: Yes I have fully participated in the care of the patient.: Yes I have reviewed all pertinent clinical information: Yes Notes (Text): 06/16/17 18:52 Patient seen and examined in the intensive care unit. Case discussed with house staff in the morning. Possible cardiac cath tomorrow MRI of the brain showed no acute infarct changes Continue treatment as per neurology and cardiology
[2017-06-16] MEDS: (Novolin R) Insulin Human Regular 100 units/ml vial SC SCH ×4 (08:03→21:52)
[2017-06-16 08:43] LABS: NEUTROPHIL 79 % (50-75); TOTAL CELLS COUNTED 100
[2017-06-16 08:57] LABS: HOMOCYSTEINE 10.3 umol/L (6.6-14.8)
[2017-06-16 09:01] LABS: FREE T4 1.23 ng/dL (0.78-2.19)
[2017-06-16 09:15] LABS: THYROID STIMULATING HORMONE 1.44 mIU/L (0.46-4.68)
[2017-06-16] MEDS: Enoxaparin 40 mg Syringe SC SCH (09:47)
--- NOTE | 2017-06-16 10:32 | CON ---
DATE: 06/16/2017 TIME OF EVALUATION: 6:55 a.m. REASON FOR THE CONSULTATION: Change in mental status. CHIEF COMPLAINT: The patient was brought in to [facility] to the ED with history of evaluation of his back, history of a fall prior to this back pain. During the hospitalization, the patient showed evidence of change in mental status. From neurological point of view, I was called in to evaluate him for further management. HISTORY OF PRESENT ILLNESS: Mr. Mohamud Lei is a 76-year-old right-handed, well-built male, bringing up history of lower back pain while he was getting up losing his balance, struck his chin with a hard subject. He claims could not be able to recall how did it happen. He also admit similar episode has happened twice in the past. He did not remember what workup medically done for those episodes. He is also having episodes of increasing his shortness of breath. History of coronary artery disease, status post CABG 3 years ago. No history of involuntary movements. No history of loss of consciousness being witnessed and documented in the chart. PAST MEDICAL HISTORY: Hypertension; coronary artery disease, status post bypass surgery; dyslipidemia; hyperthyroidism and diabetes mellitus. PERSONAL HISTORY: Denies history of smoking. No history of smoking or alcohol use. ALLERGIES: NO KNOWN ALLERGIES. REVIEW OF SYSTEMS: A 12-point systems had been reviewed. From neuro, change in mental status. MEDICATION: Crestor, Colace, aspirin, Glucotrol, Lasix, Lopressor, Lovenox, Novolin, Pepcid, Tapazole. PHYSICAL EXAMINATION: VITAL SIGNS: Blood pressure 128/61, mean arterial pressure of 74, respiratory rate 16, temperature afebrile. NECK: Supple. No carotid bruit. HEART: Sounds are regular. CHEST: Fair air entry. EXTREMITIES: Both legs are externally rotated with stasis dermatitis. Monitor shows sinus arrhythmias with intermittent PVCs noted. NEUROLOGICAL: Mental status examination: He is arousable calling his first name. He knows he is in the hospital. He could not be able to tell the name of the hospital after struggling 5 minutes. He knows the year. He follows 1 to 2-step command. Slightly having right and left confusion. Speech is fluent. Naming and repetition intact. Comprehension is intact. Cranial nerve examination: Respond to visual threat. Could not be able to count the finger on either side. Extraocular movement slightly decreased on end gaze. No facial sensory deficit. No facial asymmetry. Hearing is normal. Tongue is midline. Good gag. Motor examination: Outstretched hand with eyes closed, no drift noted. Power is symmetric on either side. Tone is normal. Deep tendon reflexes are absent. Plantars are downgoing. 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 No cortical sensory loss. Coordination: Mild dysmetria noted on both arms on reaching the target. Gait is deferred at this time. LABORATORY DATA: His workup, CT of the head reviewed. Global atrophy with enlarged ventricles including the temporal horns with periventricular ischemic changes noted. Blood workup: WBC 11.6, hemoglobin 11.6, hematocrit 35.8, platelet 184. Troponin 9.94, earlier 13. CK 399. PT 13.2, INR 1.2, D-dimer 348. Sodium 133, potassium 3.8, chloride 99, bicarbonate 25, BUN 17, creatinine 0.9, GFR more than 60, glucose 308, calcium 9.0, phosphorus 2.4, magnesium 1.8, AST 101, bilirubin 1.5. Urine shows 1+ proteinuria, 3+ glycosuria. CONCLUSION: Mr. Mohamud Lei has been presenting with recurrent episode of gait disturbances with the preceding fall and change in mental status momentarily. This all raised the possibility of possible seizures from neurological point of view. Considering the history, the vertebrobasilar insufficiency, top of the basilar syndrome should be ruled out because of his significant risk factors of sex, obesity, significant coronary disease and diabetes mellitus. RECOMMENDATION: 1. Agree with aspirin. I favor him to be on Plavix as well. 2. Statins and keep the mean arterial pressure around 90 to 100. Strict diabetic control. The patient should have MRI of the brain to rule out vertebrobasilar territory ischemic process. Electroencephalogram also recommended to rule out nonclinical seizures. 3. The patient should be kept DVT prophylaxis. The patient will be followed closely with you. Soham Aguirre MD
--- NOTE | 2017-06-16 11:55 | CARD ---
APPROVED REPORT EXAM: Two-dimensional and M-mode echocardiogram with Doppler and color Doppler. Other Information Quality : GoodRhythm : INDICATION Cardiac Disease: CAD Chest Pain Surgery/Intervention CABG: RISK FACTORS Hypertension Hyperlipidemia Diabetes 2D DIMENSIONS IVSd1.0 (0.7-1.1cm)LVDd5.1 (3.9-5.9cm) PWd1.0 (0.7-1.1cm)LVDs4.0 (2.5-4.0cm) FS (%) 21.4 %LVEF (%)43.1 (>50%) M-Mode DIMENSIONS Left Atrium (MM)3.01 (2.5-4.0cm)Aortic Root3.37 (2.2-3.7cm) Aortic Cusp Exc.2.15 (1.5-2.0cm) Mitral Valve MV E Fzdewkyf68.5cm/sMV A Yqcbspch461.3cm/sE/A ratio0.8 TDI E/Lateral E'0.0E/Medial E'0.0 Tricuspid Valve TR Peak Eslavtfi595ca/sTR Peak Gr.[id number] LEFT VENTRICLE The left ventricle is normal size. There is normal left ventricular wall thickness. The left ventricular function is normal. The left ventricular ejection fraction is within the normal range. No regional wall motion abnormalities noted. Transmitral Doppler flow pattern is Grade I-abnormal relaxation pattern. No left ventricle thrombus noted on this study. There is no ventricular septal defect visualized. There is no left ventricular aneurysm. There is no mass noted in the left ventricle. RIGHT VENTRICLE The right ventricle is normal size. There is normal right ventricular wall thickness. The right ventricular systolic function is normal. ATRIA The left atrium size is normal. The right atrium size is normal. The interatrial septum is intact with no evidence for an atrial septal defect. AORTIC VALVE The aortic valve is normal in structure and function. No aortic regurgitation is present. There is no aortic valvular stenosis. There is no aortic valvular vegetation. MITRAL VALVE The mitral valve is normal in structure and function. There is no evidence of mitral valve prolapse. There is no mitral valve stenosis. Mitral regurgitation is mild. TRICUSPID VALVE The tricuspid valve is normal in structure and function. There is no tricuspid valve regurgitation noted. There is no tricuspid valve prolapse or vegetation. There is no tricuspid valve stenosis. PULMONIC VALVE The pulmonary valve is normal in structure and function. There is no pulmonic valvular regurgitation. There is no pulmonic valvular stenosis. GREAT VESSELS The aortic root is normal in size. The ascending aorta is normal in size. The pulmonary artery is normal. The IVC is normal in size and collapses >50% with inspiration. PERICARDIAL EFFUSION The pericardium appears normal. There is no pleural effusion. <Conclusion> The left ventricular function is normal. The left ventricular ejection fraction is within the normal range. No regional wall motion abnormalities noted. Mitral regurgitation is mild.
--- NOTE | 2017-06-16 14:22 | MRI ---
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 TECHNIQUE: Multiplanar, multisequence MR images of the brain were obtained without intravenous contrast enhancement. FINDINGS: Motion artifacts degrade nearly every sequence throughout this brain MR examination limiting the interpretation. Consider repeat examination when feasible. HEMORRHAGE: None DWI: No evidence of an acute or early subacute infarction. BRAIN PARENCHYMA: Diffuse cerebral atrophy and extensive chronic microangiopathy are reiterated. No gross mass effect or extra-axial fluid collection identified. Chronic lacunes are identified the left thalamus VENTRICLES: Unremarkable. No hydrocephalus. CRANIUM: Unremarkable. ORBITS: Grossly unremarkable. PARANASAL SINUSES/MASTOIDS: Eqap-il-yprbhivt bilateral mastoid effusions are identified. VASCULAR SYSTEM: Skull base flow voids intact. OTHER FINDINGS: None. IMPRESSION: Exam compromised by extensive motion related artifacts. 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 No definite acute or subacute brain infarction appreciated this time. Consider repeat brain MRI when feasible.
--- NOTE | 2017-06-16 21:09 | CARD ---
APPROVED REPORT EKG Measurement Heart [id number] <Conclusion> Sinus rhythm with 1st degree AV block with occasional premature ventricular complexes and premature atrial complexes Low voltage QRS Inferior infarct, age undetermined Abnormal ECG
--- NOTE | 2017-06-16 22:49 | CP.PCM.PN ---
Subjective - Date & Time of Evaluation Date of Evaluation: 06/16/17 Time of Evaluation: 18:30 - Subjective Subjective: Patient scheduled for cath in am Check labs Objective - Vital Signs/Intake and Output Vital Signs (last 24 hours): Temp Pulse Resp BP Pulse Ox 98.8 F 76 18 130/56 L 97 06/16/17 20:00 06/16/17 22:00 06/16/17 22:00 06/16/17 21:56 06/16/17 22:00 Intake and Output: 06/16/17 06/17/17 18:59 06:59 Intake Total 750 150 Output Total 470 Balance 280 150 - Medications Medications: Current Medications Acetaminophen (Tylenol 325mg Tab) 650 mg PO Q6 PRN PRN Reason: Pain, moderate (4-7) Last Admin: 06/16/17 17:26 Dose: 650 mg Albuterol/Ipratropium (Duoneb 3 Mg/0.5 Mg (3 Ml) Ud) 3 ml INH RQ8 [facility] Last Admin: 06/16/17 19:39 Dose: 3 ml Aspirin (Ecotrin) 81 mg PO DAILY [facility] Last Admin: 06/16/17 09:44 Dose: 81 mg Clopidogrel Bisulfate (Plavix) 75 mg PO DAILY [facility] Last Admin: 06/16/17 09:43 Dose: 75 mg Docusate Sodium (Colace) 100 mg PO TID [facility] Last Admin: 06/16/17 17:01 Dose: 100 mg Enoxaparin Sodium (Lovenox) 40 mg SC DAILY [facility] Last Admin: 06/16/17 09:47 Dose: 40 mg Famotidine (Pepcid) 20 mg IVP DAILY [facility] Last Admin: 06/16/17 09:44 Dose: 20 mg Furosemide (Lasix) 40 mg PO DAILY [facility] Last Admin: 06/16/17 09:43 Dose: 40 mg Glipizide (Glucotrol) 10 mg PO BID [facility] Last Admin: 06/16/17 17:01 Dose: 10 mg Insulin Human Regular (Novolin R) 0 unit SC ACHS [facility] PRN Reason: Protocol Last Admin: 06/16/17 21:52 Dose: Not Given Methimazole (Tapazole) 10 mg PO DAILY [facility] Last Admin: 06/16/17 09:44 Dose: 10 mg Metoprolol Tartrate (Lopressor) 50 mg PO HS [facility] Last Admin: 06/16/17 22:04 Dose: 50 mg Rosuvastatin Calcium (Crestor) 10 mg PO HS [facility] Last Admin: 06/16/17 21:44 Dose: 10 mg - Labs Labs: 06/16/17 06:38 06/16/17 06:38 PT 13.2 SECONDS (9.7-12.2) H 06/14/17 16:14 INR 1.2 06/14/17 16:14
[2017-06-17] MEDS: Albuterol-Ipratrop 3 mg / 0.5 (3 ml) UD INH SCH ×4 (00:13→23:49)
[2017-06-17 06:36] LABS: BASO # 0.1 K/uL (0.0-0.2); BASO % 0.5 % (0.0-2.0); EOS # 0.2 K/uL (0.0-0.7); EOS % 1.5 % (0.0-4.0); HEMATOCRIT 35.4 % (35.0-51.0); LYMPH # 1.4 K/uL (1.0-4.3); LYMPH % 12.2 % (20.0-40.0); MEAN CELL VOLUME 86.2 fL (80.0-94.0); MEAN CORPUSCULAR HEMOGLOBIN 27.9 pg (27.0-31.0); MEAN CORPUSCULAR HGB CONC 32.3 g/dL (33.0-37.0); MEAN PLATELET VOLUME 10.1 fL (7.2-11.7); MONO # 1.1 K/uL (0.0-0.8); MONO % 9.8 % (0.0-10.0); RED CELL DISTRIBUTION WIDTH 14.6 % (11.5-14.5); WHITE BLOOD COUNT 11.3 K/uL (4.8-10.8)
[2017-06-17 06:45] LABS: ALB/GLOB RATIO 0.9 (1.0-2.1); ALKALINE PHOSPHATASE 50 U/L (38-126); ALT/SGPT 49 U/L (21-72); AST/SGOT 32 U/L (17-59); BILIRUBIN,TOTAL 1.1 mg/dL (0.2-1.3); BLOOD UREA NITROGEN 21 mg/dL (9-20); CALCIUM 8.8 mg/dl (8.6-10.4); CARBON DIOXIDE 29 mmol/L (22-30); CHLORIDE 100 mmol/L (98-107); GFR AFRICAN-AMERICAN > 60; GLUCOSE,RANDOM 250 mg/dL (75-110); MAGNESIUM 2.2 mg/dL (1.6-2.3); PHOSPHOROUS 3.8 mg/dL (2.5-4.5); SODIUM 139 mmol/L (132-148); TOTAL PROTEIN 7.5 g/dL (6.3-8.3)
[2017-06-17] MEDS: (Novolin R) Insulin Human Regular 100 units/ml vial SC SCH ×4 (07:30→22:00)
[2017-06-17] MEDS ORDERED: Midazolam 2 MG/2 ML VIAL ONE (08:31)
--- NOTE | 2017-06-17 08:56 | CP.CCUPN ---
<Samanta SilvermanMelinda - Last Filed: 06/17/17 10:52> CCU Subjective - Physician Review Subjective (Free Text): Patient seen and examined at bedside and in no acute distress. Patient has no complaints today. Patient went for cardiac cath this am. Patient denies shortness of breath, chest pain, abdominal pain, nausea, vomiting, constipation or diarrhea. 06/17/17 10:52 CCU Objective - Vital Signs / Intake & Output Vital Signs (Last 4 hours): Vital Signs Pulse Resp BP Pulse Ox 06/17/17 07:00 63 26 H 96 06/17/17 06:56 140/68 06/17/17 06:00 72 24 97 06/17/17 05:55 125/47 L 06/17/17 05:00 56 L 26 H 98 06/17/17 04:57 61 25 H 101/33 L 97 Intake and Output (Last 8hrs): Intake & Output 06/16/17 06/17/17 06/17/17 22:59 06:59 14:59 Intake Total 400 0 Output Total 150 Balance 400 -150 Weight 207 lb Intake: Oral 400 0 Output: Urine 150 Urine, Voided 150 Other: # Bowel Movements 0 0 - Physical Exam Head: Positive for: Atraumatic, Normocephalic Pupils: Positive for: PERRL Mouth: Positive for: Moist Mucous Membranes Respiratory/Chest: Positive for: Rhonchi. Negative for: Respiratory Distress, Accessory Muscle Use Cardiovascular: Positive for: Normal S1, S2. Negative for: Regular Rate and Rhythm Abdomen: Positive for: Normal Bowel Sounds. Negative for: Tenderness, Distention Upper Extremity: Positive for: Normal Inspection Lower Extremity: Positive for: Edema, Erythema. Negative for: Normal Inspection Neurological: Positive for: GCS=15 Skin: Positive for: Warm, Dry, Erythematous Psychiatric: Positive for: Alert. Negative for: Oriented x 3 - Medications Active Medications: Active Medications Generic Name Dose Route Start Last Admin Trade Name Freq PRN Reason Stop Dose Admin Acetaminophen 650 mg 06/16/17 17:16 06/16/17 17:26 Tylenol 325mg Tab PO 650 mg Q6 PRN Administration Pain, moderate (4-7) Albuterol/Ipratropium 3 ml 06/15/17 12:01 06/17/17 07:38 Duoneb 3 Mg/0.5 Mg (3 Ml) Ud INH 3 ml RQ8 GRACIE Administration Aspirin 81 mg 06/15/17 10:00 06/16/17 09:44 Ecotrin PO 81 mg DAILY GRACIE Administration Clopidogrel Bisulfate 75 mg 06/16/17 10:00 06/16/17 09:43 Plavix PO 75 mg DAILY GRACIE Administration Cyanocobalamin 1,000 mcg 06/17/17 08:00 Vitamin B12 1000 Mcg/Ml Inj IM 06/20/17 23:59 Q1 GRACIE Docusate Sodium 100 mg 06/15/17 10:00 06/16/17 17:01 Colace PO 100 mg TID GRACIE Administration Enoxaparin Sodium 40 mg 06/16/17 10:00 06/16/17 09:47 Lovenox SC 40 mg DAILY GRACIE Administration Famotidine 20 mg 06/15/17 10:00 06/16/17 09:44 Pepcid IVP 20 mg DAILY GRACIE Administration Furosemide 40 mg 06/15/17 10:00 06/16/17 09:43 Lasix PO 40 mg DAILY GRACIE Administration Glipizide 10 mg 06/15/17 10:00 06/16/17 17:01 Glucotrol PO 10 mg BID GRACIE Administration Insulin Human Regular 0 unit 06/14/17 22:00 06/17/17 07:30 Novolin R SC Not Given [facility] Protocol Methimazole 10 mg 06/15/17 10:00 06/16/17 09:44 Tapazole PO 10 mg DAILY GRACIE Administration Metoprolol Tartrate 50 mg 06/14/17 22:00 06/16/17 22:04 Lopressor PO 50 mg HS [facility] Administration Rosuvastatin Calcium 10 mg 06/15/17 22:00 06/16/17 21:44 Crestor PO 10 mg HS GRACIE Administration - Patient Studies Lab Studies: Microbiology Studies 06/14/17 22:40 MRSA Culture (Admit) - Final Nose MRSA NOT DETECTED Lab Studies 06/17/17 06/17/17 06/17/17 Range/Units 07:26 06:22 06:22 WBC 11.3 H (4.8-10.8) K/uL RBC 4.11 L (4.40-5.90) Mil/uL Hgb 11.5 L (12.0-18.0) g/dL Hct 35.4 (35.0-51.0) % MCV 86.2 (80.0-94.0) fL MCH 27.9 (27.0-31.0) pg MCHC 32.3 L (33.0-37.0) g/dL RDW 14.6 H (11.5-14.5) % Plt Count 201 (130-400) K/uL MPV 10.1 (7.2-11.7) fL Neut % (Auto) 76.0 H (50.0-75.0) % Lymph % (Auto) 12.2 L (20.0-40.0) % [place] % (Auto) 9.8 (0.0-10.0) % Eos % (Auto) 1.5 (0.0-4.0) % Baso % (Auto) 0.5 (0.0-2.0) % Neut # 8.6 H (1.8-7.0) K/uL Lymph # 1.4 (1.0-4.3) K/uL [place] # 1.1 H (0.0-0.8) K/uL Eos # 0.2 (0.0-0.7) K/uL Baso # 0.1 (0.0-0.2) K/uL Sodium 139 (132-148) mmol/L Potassium 4.0 (3.6-5.2) mmol/L Chloride 100 (98-107) mmol/L Carbon Dioxide 29 (22-30) mmol/L Anion Gap 14 (10-20) BUN 21 H (9-20) mg/dL Creatinine 1.0 (0.8-1.5) mg/dL Est GFR ( Amer) > 60 Est GFR (Non-Af Amer) > 60 POC Glucose (mg/dL) 267 H (65-110) mg/dL Random Glucose 250 H (75-110) mg/dL Hemoglobin A1c (4.2-6.5) % Calcium 8.8 (8.6-10.4) mg/dl Phosphorus 3.8 (2.5-4.5) mg/dL Magnesium 2.2 (1.6-2.3) mg/dL Total Bilirubin 1.1 (0.2-1.3) mg/dL AST 32 (17-59) U/L ALT 49 (21-72) U/L Alkaline Phosphatase 50 (38-126) U/L Total Creatine Kinase 201 H (55-170) U/L CK-MB (Mass) 2.46 (0.0-3.38) ng/mL Troponin I 8.8800 H* (0.00-0.120) ng/mL Total Protein 7.5 (6.3-8.3) g/dL Albumin 3.5 (3.5-5.0) g/dL Globulin 4.0 H (2.2-3.9) gm/dL Albumin/Globulin Ratio 0.9 L (1.0-2.1) Vitamin B12 (239-931) pg/mL Homocysteine (6.6-14.8) umol/L Free T4 (0.78-2.19) ng/dL TSH 3rd Generation (0.46-4.68) mIU/L RPR (NONREACTIVE) 06/16/17 06/16/17 06/16/17 Range/Units 21:12 16:15 11:48 WBC (4.8-10.8) K/uL RBC (4.40-5.90) Mil/uL Hgb (12.0-18.0) g/dL Hct (35.0-51.0) % MCV (80.0-94.0) fL MCH (27.0-31.0) pg MCHC (33.0-37.0) g/dL RDW (11.5-14.5) % Plt Count (130-400) K/uL MPV (7.2-11.7) fL Neut % (Auto) (50.0-75.0) % Lymph % (Auto) (20.0-40.0) % [place] % (Auto) (0.0-10.0) % Eos % (Auto) (0.0-4.0) % Baso % (Auto) (0.0-2.0) % Neut # (1.8-7.0) K/uL Lymph # (1.0-4.3) K/uL [place] # (0.0-0.8) K/uL Eos # (0.0-0.7) K/uL Baso # (0.0-0.2) K/uL Sodium (132-148) mmol/L Potassium (3.6-5.2) mmol/L Chloride (98-107) mmol/L Carbon Dioxide (22-30) mmol/L Anion Gap (10-20) BUN (9-20) mg/dL Creatinine (0.8-1.5) mg/dL Est GFR ( Amer) Est GFR (Non-Af Amer) POC Glucose (mg/dL) 273 H 350 H 366 H (65-110) mg/dL Random Glucose (75-110) mg/dL Hemoglobin A1c (4.2-6.5) % Calcium (8.6-10.4) mg/dl Phosphorus (2.5-4.5) mg/dL Magnesium (1.6-2.3) mg/dL Total Bilirubin (0.2-1.3) mg/dL AST (17-59) U/L ALT (21-72) U/L Alkaline Phosphatase (38-126) U/L Total Creatine Kinase (55-170) U/L CK-MB (Mass) (0.0-3.38) ng/mL Troponin I (0.00-0.120) ng/mL Total Protein (6.3-8.3) g/dL Albumin (3.5-5.0) g/dL Globulin (2.2-3.9) gm/dL Albumin/Globulin Ratio (1.0-2.1) Vitamin B12 (239-931) pg/mL Homocysteine (6.6-14.8) umol/L Free T4 (0.78-2.19) ng/dL TSH 3rd Generation (0.46-4.68) mIU/L RPR (NONREACTIVE) 06/16/17 06/16/17 06/16/17 Range/Units 07:51 07:51 07:51 WBC (4.8-10.8) K/uL RBC (4.40-5.90) Mil/uL Hgb (12.0-18.0) g/dL Hct (35.0-51.0) % MCV (80.0-94.0) fL MCH (27.0-31.0) pg MCHC (33.0-37.0) g/dL RDW (11.5-14.5) % Plt Count (130-400) K/uL MPV (7.2-11.7) fL Neut % (Auto) (50.0-75.0) % Lymph % (Auto) (20.0-40.0) % [place] % (Auto) (0.0-10.0) % Eos % (Auto) (0.0-4.0) % Baso % (Auto) (0.0-2.0) % Neut # (1.8-7.0) K/uL Lymph # (1.0-4.3) K/uL [place] # (0.0-0.8) K/uL Eos # (0.0-0.7) K/uL Baso # (0.0-0.2) K/uL Sodium (132-148) mmol/L Potassium (3.6-5.2) mmol/L Chloride (98-107) mmol/L Carbon Dioxide (22-30) mmol/L Anion Gap (10-20) BUN (9-20) mg/dL Creatinine (0.8-1.5) mg/dL Est GFR ( Amer) Est GFR (Non-Af Amer) POC Glucose (mg/dL) (65-110) mg/dL Random Glucose (75-110) mg/dL Hemoglobin A1c 8.2 H (4.2-6.5) % Calcium (8.6-10.4) mg/dl Phosphorus (2.5-4.5) mg/dL Magnesium (1.6-2.3) mg/dL Total Bilirubin (0.2-1.3) mg/dL AST (17-59) U/L ALT (21-72) U/L Alkaline Phosphatase (38-126) U/L Total Creatine Kinase (55-170) U/L CK-MB (Mass) (0.0-3.38) ng/mL Troponin I (0.00-0.120) ng/mL Total Protein (6.3-8.3) g/dL Albumin (3.5-5.0) g/dL Globulin (2.2-3.9) gm/dL Albumin/Globulin Ratio (1.0-2.1) Vitamin B12 (239-931) pg/mL Homocysteine (6.6-14.8) umol/L Free T4 1.23 (0.78-2.19) ng/dL TSH 3rd Generation 1.44 (0.46-4.68) mIU/L RPR Nonreactive (NONREACTIVE) 06/16/17 Range/Units 07:51 WBC (4.8-10.8) K/uL RBC (4.40-5.90) Mil/uL Hgb (12.0-18.0) g/dL Hct (35.0-51.0) % MCV (80.0-94.0) fL MCH (27.0-31.0) pg MCHC (33.0-37.0) g/dL RDW (11.5-14.5) % Plt Count (130-400) K/uL MPV (7.2-11.7) fL Neut % (Auto) (50.0-75.0) % Lymph % (Auto) (20.0-40.0) % [place] % (Auto) (0.0-10.0) % Eos % (Auto) (0.0-4.0) % Baso % (Auto) (0.0-2.0) % Neut # (1.8-7.0) K/uL Lymph # (1.0-4.3) K/uL [place] # (0.0-0.8) K/uL Eos # (0.0-0.7) K/uL Baso # (0.0-0.2) K/uL Sodium (132-148) mmol/L Potassium (3.6-5.2) mmol/L Chloride (98-107) mmol/L Carbon Dioxide (22-30) mmol/L Anion Gap (10-20) BUN (9-20) mg/dL Creatinine (0.8-1.5) mg/dL Est GFR ( Amer) Est GFR (Non-Af Amer) POC Glucose (mg/dL) (65-110) mg/dL Random Glucose (75-110) mg/dL Hemoglobin A1c (4.2-6.5) % Calcium (8.6-10.4) mg/dl Phosphorus (2.5-4.5) mg/dL Magnesium (1.6-2.3) mg/dL Total Bilirubin (0.2-1.3) mg/dL AST (17-59) U/L ALT (21-72) U/L Alkaline Phosphatase (38-126) U/L Total Creatine Kinase (55-170) U/L CK-MB (Mass) (0.0-3.38) ng/mL Troponin I (0.00-0.120) ng/mL Total Protein (6.3-8.3) g/dL Albumin (3.5-5.0) g/dL Globulin (2.2-3.9) gm/dL Albumin/Globulin Ratio (1.0-2.1) Vitamin B12 226 L (239-931) pg/mL Homocysteine 10.3 (6.6-14.8) umol/L Free T4 (0.78-2.19) ng/dL TSH 3rd Generation (0.46-4.68) mIU/L RPR (NONREACTIVE) Laboratory Results - last 24 hr 06/16/17 06/16/17 06/16/17 07:51 07:51 07:51 WBC RBC Hgb Hct MCV MCH MCHC RDW Plt Count MPV Neut % (Auto) Lymph % (Auto) [place] % (Auto) Eos % (Auto) Baso % (Auto) Neut # Lymph # [place] # Eos # Baso # Sodium Potassium Chloride Carbon Dioxide Anion Gap BUN Creatinine Est GFR ( Amer) Est GFR (Non-Af Amer) POC Glucose (mg/dL) Random Glucose Hemoglobin A1c 8.2 H Calcium Phosphorus Magnesium Total Bilirubin AST ALT Alkaline Phosphatase Total Creatine Kinase CK-MB (Mass) Troponin I Total Protein Albumin Globulin Albumin/Globulin Ratio Vitamin B12 226 L Homocysteine 10.3 Free T4 1.23 TSH 3rd Generation 1.44 RPR 06/16/17 06/16/17 06/16/17 07:51 11:48 16:15 WBC RBC Hgb Hct MCV MCH MCHC RDW Plt Count MPV Neut % (Auto) Lymph % (Auto) [place] % (Auto) Eos % (Auto) Baso % (Auto) Neut # Lymph # [place] # Eos # Baso # Sodium Potassium Chloride Carbon Dioxide Anion Gap BUN Creatinine Est GFR ( Amer) Est GFR (Non-Af Amer) POC Glucose (mg/dL) 366 H 350 H Random Glucose Hemoglobin A1c Calcium Phosphorus Magnesium Total Bilirubin AST ALT Alkaline Phosphatase Total Creatine Kinase CK-MB (Mass) Troponin I Total Protein Albumin Globulin Albumin/Globulin Ratio Vitamin B12 Homocysteine Free T4 TSH 3rd Generation RPR Nonreactive 06/16/17 06/17/17 06/17/17 21:12 06:22 06:22 WBC 11.3 H RBC 4.11 L Hgb 11.5 L Hct 35.4 MCV 86.2 MCH 27.9 MCHC 32.3 L RDW 14.6 H Plt Count 201 MPV 10.1 Neut % (Auto) 76.0 H Lymph % (Auto) 12.2 L [place] % (Auto) 9.8 Eos % (Auto) 1.5 Baso % (Auto) 0.5 Neut # 8.6 H Lymph # 1.4 [place] # 1.1 H Eos # 0.2 Baso # 0.1 Sodium 139 Potassium 4.0 Chloride 100 Carbon Dioxide 29 Anion Gap 14 BUN 21 H Creatinine 1.0 Est GFR ( Amer) > 60 Est GFR (Non-Af Amer) > 60 POC Glucose (mg/dL) 273 H Random Glucose 250 H Hemoglobin A1c Calcium 8.8 Phosphorus 3.8 Magnesium 2.2 Total Bilirubin 1.1 AST 32 ALT 49 Alkaline Phosphatase 50 Total Creatine Kinase 201 H CK-MB (Mass) 2.46 Troponin I 8.8800 H* Total Protein 7.5 Albumin 3.5 Globulin 4.0 H Albumin/Globulin Ratio 0.9 L Vitamin B12 Homocysteine Free T4 TSH 3rd Generation RPR 06/17/17 07:26 WBC RBC Hgb Hct MCV MCH MCHC RDW Plt Count MPV Neut % (Auto) Lymph % (Auto) [place] % (Auto) Eos % (Auto) Baso % (Auto) Neut # Lymph # [place] # Eos # Baso # Sodium Potassium Chloride Carbon Dioxide Anion Gap BUN Creatinine Est GFR ( Amer) Est GFR (Non-Af Amer) POC Glucose (mg/dL) 267 H Random Glucose Hemoglobin A1c Calcium Phosphorus Magnesium Total Bilirubin AST ALT Alkaline Phosphatase Total Creatine Kinase CK-MB (Mass) Troponin I Total Protein Albumin Globulin Albumin/Globulin Ratio Vitamin B12 Homocysteine Free T4 TSH 3rd Generation RPR Fingerstick Blood Sugar Results: 267 Review of Systems - Constitutional Constitutional: absent: Fever, Chills, Sweats - Cardiovascular Cardiovascular: Irregular Heart Rhythm, Leg Edema. absent: Dyspnea, Palpitations - Respiratory Respiratory: absent: Dyspnea on Exertion, Chest Congestion - Gastrointestinal Gastrointestinal: absent: Constipation, Diarrhea, Nausea, Vomiting - Genitourinary Genitourinary: absent: Difficulty Urinating - Musculoskeletal Musculoskeletal: absent: Numbness, Tingling - Neurological Neurological: Confusion - Psychiatric Psychiatric: Confusion, Memory Loss Critical Care Progress Note - Nutrition Nutrition: Nutrition Category Date Time Status NPO Diet [DIET] Diets 06/16/17 Breakfast Active Assessment/Plan - Assessment and Plan (Free Text) Assessment: 76-year-old male with a history of diabetes, hyperthyroidism, hypertension, high cholesterol, CAD, triple vessel bypass, hypercholesterolemia, chronic pedal edema s/p fall with NSTEMI on admission with new onset AMS on 06/15. POD # 0 s/p cardiac cath Neuro: AMS Dr. Aguirre consulted Head CT: nonspecific white matter changes. opacification/ fluid within the left mastoid air cells. 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 No definite acute or subacute brain infarction at this time. Cardio: hx HTN, high cholesterol, hypercholesterolemia, triple vessel bypass, POD #0 s/p cardiac cath -Metoprolol 50mg PO HS -Rosuvastatin 10mg PO HS -Plavix 75 mg po daily -ASA 81mg po daily -Lovenox 40mg sc daily -Cardiac Cath cancelled yesterday due to AMS -Cardiac cath done this AM * Findings: 1. L Main: Patent 2. LAD: Mid 100% 3. L Cx: Distal 99%, OM2 99% 4. RCA: Mid 100% * Grafts: 1. [place]O to LAD patent 2. SVG to OM1: patent 3. SVG to PDA 70% * Patient to go to [place] for intervention tomorrow Pulm: -Cxray 06/14: median sternotomy wires with evidence of CABG, heart size appears normal, atherosclerotic calcifications of the aorta, right hilar prominence -Duonebs q8h -Lasix 40mg po daily Endo: hx DM, hyperthryroidism -Glipizide 10 mg po BID -ISS ACHS -accuchecks ACHS -Methimazole 10mg PO daily -HgA1C:8.2 -lipids: Triglycerides: 90, Cholesterol 102, LDL 57, HDL 33, Vit B12 226, Homocysteine 10.3 -Free t4: 1.23, TSH: 1.44 -Prolactin: 9 GI: constipation Colace 100 mg po TID Prophylaxis: GI: Pepcid 20mg IVP daily DVT: SCDs, Lovenox 40mg sc daily <Yen Avilaudhry S - Last Filed: 06/17/17 16:45> CCU Objective - Vital Signs / Intake & Output Vital Signs (Last 4 hours): Vital Signs Temp Pulse Resp BP 06/17/17 14:10 98.3 F 06/17/17 13:10 98.2 F 74 20 148/73 Intake and Output (Last 8hrs): Intake & Output 06/17/17 06/17/17 06/17/17 06:59 14:59 22:59 Intake Total 0 Output Total 150 Balance -150 Weight 207 lb Intake: Oral 0 Output: Urine 150 Urine, Voided 150 Other: # Bowel Movements 0 - Medications Active Medications: Active Medications Generic Name Dose Route Start Last Admin Trade Name Freq PRN Reason Stop Dose Admin Acetaminophen 650 mg 06/16/17 17:16 06/16/17 17:26 Tylenol 325mg Tab PO 650 mg Q6 PRN Administration Pain, moderate (4-7) Albuterol/Ipratropium 3 ml 06/15/17 12:01 06/17/17 07:38 Duoneb 3 Mg/0.5 Mg (3 Ml) Ud INH 3 ml RQ8 GRACIE Administration Aspirin 81 mg 06/15/17 10:00 06/17/17 11:13 Ecotrin PO 81 mg DAILY GRACIE Administration Clopidogrel Bisulfate 75 mg 06/16/17 10:00 06/17/17 11:12 Plavix PO 75 mg DAILY GRACIE Administration Cyanocobalamin 1,000 mcg 06/18/17 10:00 Vitamin B12 1000 Mcg/Ml Inj IM 06/20/17 10:01 DAILY GRACIE Docusate Sodium 100 mg 06/15/17 10:00 06/17/17 14:00 Colace PO 100 mg TID GRACIE Administration Enoxaparin Sodium 40 mg 06/16/17 10:00 06/17/17 11:14 Lovenox SC 40 mg DAILY GRACIE Administration Famotidine 20 mg 06/15/17 10:00 06/17/17 11:14 Pepcid IVP 20 mg DAILY GRACIE Administration Furosemide 40 mg 06/15/17 10:00 06/17/17 11:13 Lasix PO 40 mg DAILY GRACIE Administration Glipizide 10 mg 06/15/17 10:00 06/17/17 11:13 Glucotrol PO 10 mg BID GRACIE Administration Insulin Human Regular 0 unit 06/14/17 22:00 06/17/17 12:55 Novolin R SC Not Given [facility] Protocol Methimazole 10 mg 06/15/17 10:00 06/17/17 11:11 Tapazole PO 10 mg DAILY GRACIE Administration Metoprolol Tartrate 50 mg 06/14/17 22:00 06/16/17 22:04 Lopressor PO 50 mg HS GRACIE Administration Rosuvastatin Calcium 10 mg 06/15/17 22:00 06/16/17 21:44 Crestor PO 10 mg HS GRACIE Administration - Patient Studies Lab Studies: Lab Studies 06/17/17 06/17/17 06/17/17 Range/Units 16:23 11:38 07:26 WBC (4.8-10.8) K/uL RBC (4.40-5.90) Mil/uL Hgb (12.0-18.0) g/dL Hct (35.0-51.0) % MCV (80.0-94.0) fL MCH (27.0-31.0) pg MCHC (33.0-37.0) g/dL RDW (11.5-14.5) % Plt Count (130-400) K/uL MPV (7.2-11.7) fL Neut % (Auto) (50.0-75.0) % Lymph % (Auto) (20.0-40.0) % [place] % (Auto) (0.0-10.0) % Eos % (Auto) (0.0-4.0) % Baso % (Auto) (0.0-2.0) % Neut # (1.8-7.0) K/uL Lymph # (1.0-4.3) K/uL [place] # (0.0-0.8) K/uL Eos # (0.0-0.7) K/uL Baso # (0.0-0.2) K/uL Sodium (132-148) mmol/L Potassium (3.6-5.2) mmol/L Chloride (98-107) mmol/L Carbon Dioxide (22-30) mmol/L Anion Gap (10-20) BUN (9-20) mg/dL Creatinine (0.8-1.5) mg/dL Est GFR ( Amer) Est GFR (Non-Af Amer) POC Glucose (mg/dL) 297 H 260 H 267 H (65-110) mg/dL Random Glucose (75-110) mg/dL Calcium (8.6-10.4) mg/dl Phosphorus (2.5-4.5) mg/dL Magnesium (1.6-2.3) mg/dL Total Bilirubin (0.2-1.3) mg/dL AST (17-59) U/L ALT (21-72) U/L Alkaline Phosphatase (38-126) U/L Total Creatine Kinase (55-170) U/L CK-MB (Mass) (0.0-3.38) ng/mL Troponin I (0.00-0.120) ng/mL Total Protein (6.3-8.3) g/dL Albumin (3.5-5.0) g/dL Globulin (2.2-3.9) gm/dL Albumin/Globulin Ratio (1.0-2.1) Vitamin B12 (239-931) pg/mL 06/17/17 06/17/17 06/16/17 Range/Units 06:22 06:22 21:12 WBC 11.3 H (4.8-10.8) K/uL RBC 4.11 L (4.40-5.90) Mil/uL Hgb 11.5 L (12.0-18.0) g/dL Hct 35.4 (35.0-51.0) % MCV 86.2 (80.0-94.0) fL MCH 27.9 (27.0-31.0) pg MCHC 32.3 L (33.0-37.0) g/dL RDW 14.6 H (11.5-14.5) % Plt Count 201 (130-400) K/uL MPV 10.1 (7.2-11.7) fL Neut % (Auto) 76.0 H (50.0-75.0) % Lymph % (Auto) 12.2 L (20.0-40.0) % [place] % (Auto) 9.8 (0.0-10.0) % Eos % (Auto) 1.5 (0.0-4.0) % Baso % (Auto) 0.5 (0.0-2.0) % Neut # 8.6 H (1.8-7.0) K/uL Lymph # 1.4 (1.0-4.3) K/uL [place] # 1.1 H (0.0-0.8) K/uL Eos # 0.2 (0.0-0.7) K/uL Baso # 0.1 (0.0-0.2) K/uL Sodium 139 (132-148) mmol/L Potassium 4.0 (3.6-5.2) mmol/L Chloride 100 (98-107) mmol/L Carbon Dioxide 29 (22-30) mmol/L Anion Gap 14 (10-20) BUN 21 H (9-20) mg/dL Creatinine 1.0 (0.8-1.5) mg/dL Est GFR ( Amer) > 60 Est GFR (Non-Af Amer) > 60 POC Glucose (mg/dL) 273 H (65-110) mg/dL Random Glucose 250 H (75-110) mg/dL Calcium 8.8 (8.6-10.4) mg/dl Phosphorus 3.8 (2.5-4.5) mg/dL Magnesium 2.2 (1.6-2.3) mg/dL Total Bilirubin 1.1 (0.2-1.3) mg/dL AST 32 (17-59) U/L ALT 49 (21-72) U/L Alkaline Phosphatase 50 (38-126) U/L Total Creatine Kinase 201 H (55-170) U/L CK-MB (Mass) 2.46 (0.0-3.38) ng/mL Troponin I 8.8800 H* (0.00-0.120) ng/mL Total Protein 7.5 (6.3-8.3) g/dL Albumin 3.5 (3.5-5.0) g/dL Globulin 4.0 H (2.2-3.9) gm/dL Albumin/Globulin Ratio 0.9 L (1.0-2.1) Vitamin B12 196 L (239-931) pg/mL Laboratory Results - last 24 hr 06/16/17 06/17/17 06/17/17 21:12 06:22 06:22 WBC 11.3 H RBC 4.11 L Hgb 11.5 L Hct 35.4 MCV 86.2 MCH 27.9 MCHC 32.3 L RDW 14.6 H Plt Count 201 MPV 10.1 Neut % (Auto) 76.0 H Lymph % (Auto) 12.2 L [place] % (Auto) 9.8 Eos % (Auto) 1.5 Baso % (Auto) 0.5 Neut # 8.6 H Lymph # 1.4 [place] # 1.1 H Eos # 0.2 Baso # 0.1 Sodium 139 Potassium 4.0 Chloride 100 Carbon Dioxide 29 Anion Gap 14 BUN 21 H Creatinine 1.0 Est GFR ( Amer) > 60 Est GFR (Non-Af Amer) > 60 POC Glucose (mg/dL) 273 H Random Glucose 250 H Calcium 8.8 Phosphorus 3.8 Magnesium 2.2 Total Bilirubin 1.1 AST 32 ALT 49 Alkaline Phosphatase 50 Total Creatine Kinase 201 H CK-MB (Mass) 2.46 Troponin I 8.8800 H* Total Protein 7.5 Albumin 3.5 Globulin 4.0 H Albumin/Globulin Ratio 0.9 L Vitamin B12 196 L 06/17/17 06/17/17 06/17/17 07:26 11:38 16:23 WBC RBC Hgb Hct MCV MCH MCHC RDW Plt Count MPV Neut % (Auto) Lymph % (Auto) [place] % (Auto) Eos % (Auto) Baso % (Auto) Neut # Lymph # [place] # Eos # Baso # Sodium Potassium Chloride Carbon Dioxide Anion Gap BUN Creatinine Est GFR ( Amer) Est GFR (Non-Af Amer) POC Glucose (mg/dL) 267 H 260 H 297 H Random Glucose Calcium Phosphorus Magnesium Total Bilirubin AST ALT Alkaline Phosphatase Total Creatine Kinase CK-MB (Mass) Troponin I Total Protein Albumin Globulin Albumin/Globulin Ratio Vitamin B12 Critical Care Progress Note - Nutrition Nutrition: Nutrition Category Date Time Status Heart Healthy Diet [DIET] Diets 06/17/17 Lunch Active Attending/Attestation - Attestation I have personally seen and examined this patient.: Yes I have fully participated in the care of the patient.: Yes I have reviewed all pertinent clinical information: Yes Notes (Text): 06/17/17 16:45 Patient seen and examined. Status post cardiac cath Findings: 1. L Main: Patent 2. LAD: Mid 100% 3. L Cx: Distal 99%, OM2 99% 4. RCA : Mid 100% * Grafts: 1. [place] to LAD patent 2. SVG to OM1: patent 3. SVG to PDA 70% * Patient to go to [place] for intervention tomorrow
--- NOTE | 2017-06-17 10:02 | PN ---
DATE: 06/16/2017 SUBJECTIVE: The patient is seen today on 06/16/2017. He is not in any cardiopulmonary distress. The patient is more alert and awake. PHYSICAL EXAMINATION: VITAL SIGNS: Blood pressure is 137/62, temperature 98.8, respiratory rate 20, and pulse 66. HEENT: Pupils are equal and reactive to light. Normal-appearing mucosa of the conjunctivae, oropharyngeal and nasal membrane mucosa. NECK: Supple. No JVD. No carotid bruit. No lymph node. No thyromegaly. CHEST AND LUNGS: Bilateral symmetrical expansion. Good air exchange. No rales. No rhonchi. CARDIOVASCULAR SYSTEM: PMI not localized. S1, S2. No additional sounds. ABDOMEN: Normoactive bowel sounds. No tenderness. No organomegaly. No masses. EXTREMITIES: No cyanosis. No clubbing. No edema. INTERACTIVE MEDIA MARKETING DIRECTOR: Alert, awake, and oriented x2. No neurological deficits could be appreciated. ASSESSMENT: 1. Status post fall with multiple facial and chest wall contusion. 2. Tvq-PN-prezogile myocardial infarction. 3. Type 2 diabetes mellitus. 4. Hyperthyroidism. 5. Hypertension. PLAN: Continue current medications and management and follow recommendations of explosive operator supervisor. Noemi Huertas MD
--- NOTE | 2017-06-17 10:20 | CP.PCM.PN ---
Subjective - Date & Time of Evaluation Date of Evaluation: 06/17/17 Time of Evaluation: 10:17 - Subjective Subjective: Patient s/p Cardiac cath 1. L Main: Patent 2. LAD: Mid 100% 3. L Cx: Distal 99%, OM2 99% 3. RCA: Mid 100% Grafts: 1. [place] to LAD patent 2. SVG to OM1: patent 3. SVG to PDA 70% EF: 50% Plan: PCI of LCX and SVG to PDA Resume diet OOB to chair after 1pm today Objective - Vital Signs/Intake and Output Vital Signs (last 24 hours): Temp Pulse Resp BP Pulse Ox 98.3 F 67 27 H 137/71 97 06/17/17 08:00 06/17/17 07:55 06/17/17 07:55 06/17/17 07:55 06/17/17 08:00 Intake and Output: 06/17/17 06/17/17 06:59 18:59 Intake Total 150 Output Total 150 Balance 0 - Medications Medications: Current Medications Acetaminophen (Tylenol 325mg Tab) 650 mg PO Q6 PRN PRN Reason: Pain, moderate (4-7) Last Admin: 06/16/17 17:26 Dose: 650 mg Albuterol/Ipratropium (Duoneb 3 Mg/0.5 Mg (3 Ml) Ud) 3 ml INH RQ8 [facility] Last Admin: 06/17/17 07:38 Dose: 3 ml Aspirin (Ecotrin) 81 mg PO DAILY [facility] Last Admin: 06/16/17 09:44 Dose: 81 mg Clopidogrel Bisulfate (Plavix) 75 mg PO DAILY [facility] Last Admin: 06/16/17 09:43 Dose: 75 mg Cyanocobalamin (Vitamin B12 1000 Mcg/Ml Inj) 1,000 mcg IM Q1 [facility] Stop: 06/20/17 23:59 Docusate Sodium (Colace) 100 mg PO TID [facility] Last Admin: 06/16/17 17:01 Dose: 100 mg Enoxaparin Sodium (Lovenox) 40 mg SC DAILY [facility] Last Admin: 06/16/17 09:47 Dose: 40 mg Famotidine (Pepcid) 20 mg IVP DAILY [facility] Last Admin: 06/16/17 09:44 Dose: 20 mg Furosemide (Lasix) 40 mg PO DAILY [facility] Last Admin: 06/16/17 09:43 Dose: 40 mg Glipizide (Glucotrol) 10 mg PO BID [facility] Last Admin: 06/16/17 17:01 Dose: 10 mg Insulin Human Regular (Novolin R) 0 unit SC [facility] PRN Reason: Protocol Last Admin: 06/17/17 07:30 Dose: Not Given Methimazole (Tapazole) 10 mg PO DAILY [facility] Last Admin: 06/16/17 09:44 Dose: 10 mg Metoprolol Tartrate (Lopressor) 50 mg PO HS [facility] Last Admin: 06/16/17 22:04 Dose: 50 mg Rosuvastatin Calcium (Crestor) 10 mg PO HS [facility] Last Admin: 06/16/17 21:44 Dose: 10 mg - Labs Labs: 06/17/17 06:22 06/17/17 06:22 PT 13.2 SECONDS (9.7-12.2) H 06/14/17 16:14 INR 1.2 06/14/17 16:14
[2017-06-17] MEDS: Enoxaparin 40 mg Syringe SC SCH (11:14)
--- NOTE | 2017-06-17 12:01 | CARD ---
APPROVED REPORT EKG Measurement Heart [id number] P66 [id number] <Conclusion> sinus with first degree av block,periods of second degree av blocks type one,some junctional beats. Inferior infarct, age undetermined Prolonged QT Abnormal ECG
--- NOTE | 2017-06-17 12:34 | VASCLAB ---
PROCEDURE: HISTORY: Carotid stenosis COMPARISON: None available. TECHNIQUE: Grayscale and duplex Doppler evaluation of the cervical carotid and vertebral arteries were performed. The common carotid, carotid bifurcations and cervical Internal Carotid Artery (ICA) and proximal External Carotid Artery (ECA) were evaluated. The vertebral arteries were evaluated for gross patency and flow direction. Report prepared by JOAQUINA Troncoso FINDINGS: RIGHT CAROTID ARTERIES: 1. Common Carotid Artery: No significant focal plaque formation of the right common carotid artery. Maximum Peak Systolic velocity: 106 cm/sec: End-diastolic velocity 10 cm/sec. 2. Carotid Bifurcation: Heterogeneous plaque formation. Maximum Peak Systolic velocity: 44 cm/sec: End-diastolic velocity 8 cm/sec. 3. Internal Carotid Artery: Plaque description: Heterogeneous 3.1. Proximal Segment: Peak systolic velocity 65 cm/sec: End-diastolic velocity 19 cm/sec - % stenosis 0-15% 3.2. Middle Segment: Peak systolic velocity 81 cm/sec: End-diastolic velocity 27 cm/sec - % stenosis 0-15% 3.3. Distal Segment: Peak systolic velocity 89 cm/sec: End-diastolic velocity 10 cm/sec - % stenosis 0-15% 4. External Carotid Artery: No significant focal plaque formation. Peak systolic velocity 106 cm/sec 5. ICA/CCA Ratio: 1.2 LEFT CAROTID ARTERIES: 1. Common Carotid Artery: No significant focal plaque formation of the left common carotid artery. Maximum Peak Systolic velocity: 131 cm/sec: End-diastolic velocity 9 cm/sec. 2. Carotid Bifurcation: Heterogeneous plaque formation. Maximum Peak Systolic velocity: 66 cm/sec: End-diastolic velocity 12 cm/sec. 3. Internal Carotid Artery: Plaque description: Heterogeneous 3.1. Proximal Segment: Peak systolic velocity 67 cm/sec: End-diastolic velocity 9 cm/sec - % stenosis 0-15% 3.2. Middle Segment: Peak systolic velocity 111 cm/sec: End-diastolic velocity 38 cm/sec - % stenosis 0-15% 3.3. Distal Segment: Peak systolic velocity 80 cm/sec: End-diastolic velocity 18 cm/sec - % stenosis 0-15% 4. External Carotid Artery: No significant focal plaque formation. Peak systolic velocity 218 cm/sec 5. ICA/CCA Ratio: 2.2 VERTEBRAL ARTERIES: 1. Right Vertebral Artery: Unable to visualize the right vertebral artery flow. 2. Left Vertebral Artery: Unable to visualize the left vertebral artery flow. OTHER FINDINGS: 1. Right Brachial Blood pressure: 135 mmHg. 2. Left Brachial Blood pressure: 138 mmHg. IMPRESSION: RIGHT: Duplex scan does not suggest hemodynamically significant stenosis of the right extracranial carotid arteries. LEFT: Duplex scan does not suggest hemodynamically significant stenosis of the left common and internal carotid arteries. High velocity is noted of the left ECA. This was a technically difficult examination, due to ICU equipment interference, patient breathing movement and patient short neck area.
--- NOTE | 2017-06-17 20:30 | CP.PCM.CON ---
History of Present Illness - History of Present Illness History of Present Illness: Seen and examined at bedside Daughter was in attendance Re: AV block and fall This patient was admitted with a history of fall and consequent injury to the chin; there is no eye witness account; no definitive history of loss of consciousness; he does have prior history of fall difficultyin walking and has been evaluated by neurology Post admission was noted to have elevated serum troponin; a scheduled cath was deferred due to mental status changes. EKG and telemetry also showed periods of AV block There is no history of palpitations dizziness syncope per his daughter Chief complaints: Fell down yesterday History of present illness: 76-year-old male with a history of diabetes hypertension and high cholesterol CAD status post coronary artery bypass grafting, hypercholesteremia, chronic pedal edema came to the emergency room because was not able to walk today. Past medical history: Systemic hypertension Diabetes mellitus Hyperlipidemia Coronary artery disease Past surgery: Coronary artery bypass surgery Allergies: No known drug allergy Social: No history of smoking or alcohol abuse Past Patient History - Past Medical History & Family History Past Medical History?: Yes - Past Social History Smoking Status: Never Smoked - CARDIAC Hx Cardiac Disorders: Yes Hx Hypercholesterolemia: Yes Hx Hypertension: Yes Other/Comment: CAD - PULMONARY Hx Respiratory Disorders: No - NEUROLOGICAL Hx Neurological Disorder: No - HEENT Hx HEENT Problems: No - RENAL Hx Chronic Kidney Disease: No - ENDOCRINE/METABOLIC Hx Endocrine Disorders: Yes Hx Diabetes Mellitus Type 2: Yes Hx Hyperthyroidism: Yes Hx Hypothyroidism: Yes - HEMATOLOGICAL/ONCOLOGICAL Hx Blood Disorders: No - INTEGUMENTARY Hx Dermatological Problems: No - MUSCULOSKELETAL/RHEUMATOLOGICAL Hx Falls: Yes - GASTROINTESTINAL Hx Gastrointestinal Disorders: No - GENITOURINARY/GYNECOLOGICAL Hx Genitourinary Disorders: No - PSYCHIATRIC Hx Psychophysiologic Disorder: No Hx Substance Use: No - SURGICAL HISTORY Hx Surgeries: Yes Hx Coronary Artery Bypass Graft: Yes (triple vessel 2014) - ANESTHESIA Hx Anesthesia: Yes Hx Anesthesia Reactions: No Hx Malignant Hyperthermia: No Has any member of the family had a problem w/ anesthesia?: No Meds Allergies/Adverse Reactions: Allergies Allergy/AdvReac Type Severity Reaction Status Date / Time No Known Allergies Allergy Verified 09/05/14 16:16 - Medications Medications: Current Medications Acetaminophen (Tylenol 325mg Tab) 650 mg PO Q6 PRN PRN Reason: Pain, moderate (4-7) Last Admin: 11/07/17 17:26 Dose: 650 mg Albuterol/Ipratropium (Duoneb 3 Mg/0.5 Mg (3 Ml) Ud) 3 ml INH RQ8 [facility] Last Admin: 06/17/17 19:50 Dose: 3 ml Aspirin (Ecotrin) 81 mg PO DAILY [facility] Last Admin: 06/17/17 11:13 Dose: 81 mg Clopidogrel Bisulfate (Plavix) 75 mg PO DAILY [facility] Last Admin: 06/17/17 11:12 Dose: 75 mg Cyanocobalamin (Vitamin B12 1000 Mcg/Ml Inj) 1,000 mcg IM DAILY [facility] Stop: 06/20/17 10:01 Docusate Sodium (Colace) 100 mg PO TID [facility] Last Admin: 06/17/17 17:09 Dose: 100 mg Enoxaparin Sodium (Lovenox) 40 mg SC DAILY [facility] Last Admin: 06/17/17 11:14 Dose: 40 mg Famotidine (Pepcid) 20 mg IVP DAILY [facility] Last Admin: 06/17/17 11:14 Dose: 20 mg Furosemide (Lasix) 40 mg PO DAILY [facility] Last Admin: 06/17/17 11:13 Dose: 40 mg Glipizide (Glucotrol) 10 mg PO BID [facility] Last Admin: 06/17/17 17:09 Dose: 10 mg Insulin Human Regular (Novolin R) 0 unit SC [facility] PRN Reason: Protocol Last Admin: 06/17/17 17:09 Dose: 3 unit Methimazole (Tapazole) 10 mg PO DAILY [facility] Last Admin: 06/17/17 11:11 Dose: 10 mg Metoprolol Tartrate (Lopressor) 50 mg PO [facility] Last Admin: 06/16/17 22:04 Dose: 50 mg Rosuvastatin Calcium (Crestor) 10 mg PO HS [facility] Last Admin: 06/16/17 21:44 Dose: 10 mg Physical Exam - Additional Findings Additional findings: No distress Afebrile Lethargic responds to oral commands but lapses back Normal venous pressures No implanted device Normal heart sounds edema Results - Vital Signs Recent Vital Signs: Last Vital Signs Temp 98.3 F 06/17/17 16:10 Pulse 72 06/17/17 19:21 Resp 21 06/17/17 19:21 BP 129/60 06/17/17 19:21 Pulse Ox 97 06/17/17 19:21 - Labs Result Diagrams: 06/17/17 06:22 06/17/17 06:22 Labs: Laboratory Results - last 24 hr 06/16/17 06/16/17 06/17/17 07:51 21:12 06:22 WBC 11.3 H RBC 4.11 L Hgb 11.5 L Hct 35.4 MCV 86.2 MCH 27.9 MCHC 32.3 L RDW 14.6 H Plt Count 201 MPV 10.1 Neut % (Auto) 76.0 H Lymph % (Auto) 12.2 L Pender % (Auto) 9.8 Eos % (Auto) 1.5 Baso % (Auto) 0.5 Neut # 8.6 H Lymph # 1.4 Pender # 1.1 H Eos # 0.2 Baso # 0.1 Sodium Potassium Chloride Carbon Dioxide Anion Gap BUN Creatinine Est GFR ( Amer) Est GFR (Non-Af Amer) POC Glucose (mg/dL) 273 H Random Glucose Calcium Phosphorus Magnesium Total Bilirubin AST ALT Alkaline Phosphatase Total Creatine Kinase CK-MB (Mass) Troponin I Total Protein Albumin Globulin Albumin/Globulin Ratio Vitamin B12 Thyroperoxidase Ab <1 06/17/17 06/17/17 06/17/17 06:22 07:26 11:38 WBC RBC Hgb Hct MCV MCH MCHC RDW Plt Count MPV Neut % (Auto) Lymph % (Auto) Pender % (Auto) Eos % (Auto) Baso % (Auto) Neut # Lymph # Pender # Eos # Baso # Sodium 139 Potassium 4.0 Chloride 100 Carbon Dioxide 29 Anion Gap 14 BUN 21 H Creatinine 1.0 Est GFR ( Amer) > 60 Est GFR (Non-Af Amer) > 60 POC Glucose (mg/dL) 267 H 260 H Random Glucose 250 H Calcium 8.8 Phosphorus 3.8 Magnesium 2.2 Total Bilirubin 1.1 AST 32 ALT 49 Alkaline Phosphatase 50 Total Creatine Kinase 201 H CK-MB (Mass) 2.46 Troponin I 8.8800 H* Total Protein 7.5 Albumin 3.5 Globulin 4.0 H Albumin/Globulin Ratio 0.9 L Vitamin B12 196 L Thyroperoxidase Ab 06/17/17 16:23 WBC RBC Hgb Hct MCV MCH MCHC RDW Plt Count MPV Neut % (Auto) Lymph % (Auto) Pender % (Auto) Eos % (Auto) Baso % (Auto) Neut # Lymph # Pender # Eos # Baso # Sodium Potassium Chloride Carbon Dioxide Anion Gap BUN Creatinine Est GFR ( Amer) Est GFR (Non-Af Amer) POC Glucose (mg/dL) 297 H Random Glucose Calcium Phosphorus Magnesium Total Bilirubin AST ALT Alkaline Phosphatase Total Creatine Kinase CK-MB (Mass) Troponin I Total Protein Albumin Globulin Albumin/Globulin Ratio Vitamin B12 Thyroperoxidase Ab Assessment & Plan - Assessment and Plan (Free Text) Assessment: Mr. Lei presented with a fall presumably mechanical/musculoskeletal; there is no definitive evidence of a hemodynamic event, although remains a consideration; EKG and telemetry showed periods of second degree AV block with an atypical Wenckebach periodicity; the significance of the latter and its clinical import is unclear and is specualtive; it likely reflects conduction system disease likely ischemic/degnerative/medications assuming absence of thyroid disease There are no definitive indications for a pacemaker but may be a consideration is beta blockers are an imperative (LV function or brittle coronary disease) or the recurrent falls do not have a proximate etiology pro tem would avoid AV ken stressors, exclude thyroid function Plan: As above
--- NOTE | 2017-06-17 21:42 | CP.PCM.PN ---
Subjective - Date & Time of Evaluation Date of Evaluation: 06/17/17 Time of Evaluation: 21:40 - Subjective Subjective: Seen examined Clinical events noted Imaging reviewed including cardiac cath Objective - Vital Signs/Intake and Output Vital Signs (last 24 hours): Temp Pulse Resp BP Pulse Ox 98.3 F 72 21 129/60 97 06/17/17 16:10 06/17/17 19:21 06/17/17 19:21 06/17/17 19:21 06/17/17 19:21 Intake and Output: 06/17/17 06/18/17 18:59 06:59 Intake Total 600 Output Total 750 Balance -150 - Medications Medications: Current Medications Acetaminophen (Tylenol 325mg Tab) 650 mg PO Q6 PRN PRN Reason: Pain, moderate (4-7) Last Admin: 06/16/17 17:26 Dose: 650 mg Albuterol/Ipratropium (Duoneb 3 Mg/0.5 Mg (3 Ml) Ud) 3 ml INH RQ8 [facility] Last Admin: 06/17/17 19:50 Dose: 3 ml Aspirin (Ecotrin) 81 mg PO DAILY [facility] Last Admin: 06/17/17 11:13 Dose: 81 mg Clopidogrel Bisulfate (Plavix) 75 mg PO DAILY [facility] Last Admin: 06/17/17 11:12 Dose: 75 mg Cyanocobalamin (Vitamin B12 1000 Mcg/Ml Inj) 1,000 mcg IM DAILY [facility] Stop: 06/20/17 10:01 Docusate Sodium (Colace) 100 mg PO TID [facility] Last Admin: 06/17/17 17:09 Dose: 100 mg Enoxaparin Sodium (Lovenox) 40 mg SC DAILY [facility] Last Admin: 06/17/17 11:14 Dose: 40 mg Famotidine (Pepcid) 20 mg IVP DAILY [facility] Last Admin: 06/17/17 11:14 Dose: 20 mg Furosemide (Lasix) 40 mg PO DAILY [facility] Last Admin: 06/17/17 11:13 Dose: 40 mg Glipizide (Glucotrol) 10 mg PO BID [facility] Last Admin: 06/17/17 17:09 Dose: 10 mg Insulin Human Regular (Novolin R) 0 unit SC [facility] PRN Reason: Protocol Last Admin: 06/17/17 17:09 Dose: 3 unit Methimazole (Tapazole) 10 mg PO DAILY [facility] Last Admin: 06/17/17 11:11 Dose: 10 mg Metoprolol Tartrate (Lopressor) 50 mg PO HS [facility] Last Admin: 06/17/17 21:31 Dose: 50 mg Rosuvastatin Calcium (Crestor) 10 mg PO HS [facility] Last Admin: 06/17/17 21:31 Dose: 10 mg - Labs Labs: 06/17/17 06:22 06/17/17 06:22 PT 13.2 SECONDS (9.7-12.2) H 06/14/17 16:14 INR 1.2 06/14/17 16:14 - Additional Findings Additional findings: No significant interval change since last exam Assessment and Plan - Assessment and Plan (Free Text) Assessment: Mr. Lei presented with a fall presumably mechanical/musculoskeletal; there is no definitive evidence of a hemodynamic event, although remains a consideration; EKG and telemetry showed periods of second degree AV block with an atypical Wenckebach periodicity; the significance of the latter and its clinical import is unclear and is specualtive; it likely reflects conduction system disease likely ischemic/degnerative/medications assuming absence of thyroid disease There are no definitive indications for a pacemaker but may be a consideration is beta blockers are an imperative (LV function or brittle coronary disease) or the recurrent falls do not have a proximate etiology; pro tem would avoid AV ken stressors, exclude thyroid function Since last evaluation yesterday, rhythm remains unaltered with periods of second degree AV block and 2:1 AV block; hemodynamics remain stable; of note low saturation alarms Continue with current care; plan as outlined Plan: as above
[2017-06-18 06:35] LABS: BASO % 0.3 % (0.0-2.0); EOS # 0.1 K/uL (0.0-0.7); EOS % 1.4 % (0.0-4.0); HEMATOCRIT 34.5 % (35.0-51.0); LYMPH # 1.3 K/uL (1.0-4.3); LYMPH % 12.5 % (20.0-40.0); MEAN CELL VOLUME 85.5 fL (80.0-94.0); MEAN CORPUSCULAR HEMOGLOBIN 28.6 pg (27.0-31.0); MEAN CORPUSCULAR HGB CONC 33.4 g/dL (33.0-37.0); MEAN PLATELET VOLUME 9.4 fL (7.2-11.7); MONO # 1.1 K/uL (0.0-0.8); MONO % 10.7 % (0.0-10.0); RED CELL DISTRIBUTION WIDTH 14.6 % (11.5-14.5); WHITE BLOOD COUNT 10.6 K/uL (4.8-10.8)
[2017-06-18 06:42] LABS: ALB/GLOB RATIO 0.9 (1.0-2.1); ALKALINE PHOSPHATASE 51 U/L (38-126); ALT/SGPT 35 U/L (21-72); AST/SGOT 25 U/L (17-59); BILIRUBIN,TOTAL 1.4 mg/dL (0.2-1.3); BLOOD UREA NITROGEN 21 mg/dL (9-20); CALCIUM 8.3 mg/dl (8.6-10.4); CARBON DIOXIDE 30 mmol/L (22-30); CHLORIDE 99 mmol/L (98-107); GFR AFRICAN-AMERICAN > 60; GLUCOSE,RANDOM 264 mg/dL (75-110); MAGNESIUM 2.2 mg/dL (1.6-2.3); PHOSPHOROUS 3.6 mg/dL (2.5-4.5); SODIUM 140 mmol/L (132-148); TOTAL PROTEIN 7.6 g/dL (6.3-8.3)
--- NOTE | 2017-06-18 07:26 | CP.CCUPN ---
<Samanta Silverman - Last Filed: 06/18/17 11:43> CCU Subjective - Physician Review Subjective (Free Text): Patient seen and examined at bedside and in no acute distress. Patient says he has not had a bowel movement in a few days. Patient to go to [facility] tomorrow for PCI. Patient denies shortness of breath, chest pain, abdominal pain, nausea , vomiting, or diarrhea. CCU Objective - Vital Signs / Intake & Output Vital Signs (Last 4 hours): Vital Signs Pulse Resp BP Pulse Ox 06/18/17 07:00 83 24 97 06/18/17 06:00 85 22 97 06/18/17 05:56 92 H 132/53 L 96 06/18/17 05:00 85 22 100 06/18/17 04:55 61 22 113/51 L 98 06/18/17 04:00 65 22 97 06/18/17 03:55 60 24 111/53 L 97 Intake and Output (Last 8hrs): Intake & Output 06/17/17 06/18/17 06/18/17 22:59 06:59 14:59 Intake Total 300 500 Output Total 300 Balance 0 500 Weight 207 lb Intake: Oral 300 500 Output: Urine 300 Urine, Voided 300 Other: # Voids Urine, Voided 0 # Bowel Movements 0 400 - Physical Exam Head: Positive for: Atraumatic, Normocephalic Pupils: Positive for: PERRL Mouth: Positive for: Moist Mucous Membranes Respiratory/Chest: Negative for: Respiratory Distress, Accessory Muscle Use Cardiovascular: Positive for: Normal S1, S2. Negative for: Regular Rate and Rhythm Abdomen: Positive for: Normal Bowel Sounds. Negative for: Tenderness, Distention Upper Extremity: Positive for: Normal Inspection Lower Extremity: Positive for: Edema, Erythema. Negative for: Normal Inspection Neurological: Positive for: GCS=15 Skin: Positive for: Warm, Dry, Erythematous Psychiatric: Positive for: Alert. Negative for: Oriented x 3 - Medications Active Medications: Active Medications Generic Name Dose Route Start Last Admin Trade Name Freq PRN Reason Stop Dose Admin Acetaminophen 650 mg 06/16/17 17:16 06/16/17 17:26 Tylenol 325mg Tab PO 650 mg Q6 PRN Administration Pain, moderate (4-7) Albuterol/Ipratropium 3 ml 06/15/17 12:01 06/17/17 23:49 Duoneb 3 Mg/0.5 Mg (3 Ml) Ud INH 3 ml RQ8 GRACIE Administration Aspirin 81 mg 06/15/17 10:00 06/17/17 11:13 Ecotrin PO 81 mg DAILY GRACIE Administration Clopidogrel Bisulfate 75 mg 06/16/17 10:00 06/17/17 11:12 Plavix PO 75 mg DAILY GRACIE Administration Cyanocobalamin 1,000 mcg 06/18/17 10:00 Vitamin B12 1000 Mcg/Ml Inj IM 06/20/17 10:01 DAILY GRACIE Docusate Sodium 100 mg 06/15/17 10:00 06/17/17 17:09 Colace PO 100 mg TID GRACIE Administration Enoxaparin Sodium 40 mg 06/16/17 10:00 06/17/17 11:14 Lovenox SC 40 mg DAILY GRACIE Administration Famotidine 20 mg 06/15/17 10:00 06/17/17 11:14 Pepcid IVP 20 mg DAILY GRACIE Administration Furosemide 40 mg 06/15/17 10:00 06/17/17 11:13 Lasix PO 40 mg DAILY GRACIE Administration Glipizide 10 mg 06/15/17 10:00 06/17/17 17:09 Glucotrol PO 10 mg BID GRACIE Administration Insulin Human Regular 0 unit 06/14/17 22:00 06/17/17 22:00 Novolin R SC Not Given ACHS [facility] Protocol Methimazole 10 mg 06/15/17 10:00 06/17/17 11:11 Tapazole PO 10 mg DAILY GRACIE Administration Metoprolol Tartrate 50 mg 06/14/17 22:00 06/17/17 21:31 Lopressor PO 50 mg HS GRACIE Administration Rosuvastatin Calcium 10 mg 06/15/17 22:00 06/17/17 21:31 Crestor PO 10 mg HS GRACIE Administration - Patient Studies Lab Studies: Lab Studies 06/18/17 06/18/17 06/17/17 Range/Units 06:26 06:26 21:19 WBC 10.6 (4.8-10.8) K/uL RBC 4.04 L (4.40-5.90) Mil/uL Hgb 11.5 L (12.0-18.0) g/dL Hct 34.5 L (35.0-51.0) % MCV 85.5 (80.0-94.0) fL MCH 28.6 (27.0-31.0) pg MCHC 33.4 (33.0-37.0) g/dL RDW 14.6 H (11.5-14.5) % Plt Count 224 (130-400) K/uL MPV 9.4 (7.2-11.7) fL Neut % (Auto) 75.1 H (50.0-75.0) % Lymph % (Auto) 12.5 L (20.0-40.0) % Mower % (Auto) 10.7 H (0.0-10.0) % Eos % (Auto) 1.4 (0.0-4.0) % Baso % (Auto) 0.3 (0.0-2.0) % Neut # 7.9 H (1.8-7.0) K/uL Lymph # 1.3 (1.0-4.3) K/uL Mower # 1.1 H (0.0-0.8) K/uL Eos # 0.1 (0.0-0.7) K/uL Baso # 0.0 (0.0-0.2) K/uL Sodium 140 (132-148) mmol/L Potassium 4.0 (3.6-5.2) mmol/L Chloride 99 (98-107) mmol/L Carbon Dioxide 30 (22-30) mmol/L Anion Gap 14 (10-20) BUN 21 H (9-20) mg/dL Creatinine 0.9 (0.8-1.5) mg/dL Est GFR ( Amer) > 60 Est GFR (Non-Af Amer) > 60 POC Glucose (mg/dL) 267 H (65-110) mg/dL Random Glucose 264 H (75-110) mg/dL Calcium 8.3 L (8.6-10.4) mg/dl Phosphorus 3.6 (2.5-4.5) mg/dL Magnesium 2.2 (1.6-2.3) mg/dL Total Bilirubin 1.4 H (0.2-1.3) mg/dL AST 25 (17-59) U/L ALT 35 (21-72) U/L Alkaline Phosphatase 51 (38-126) U/L Total Creatine Kinase (55-170) U/L CK-MB (Mass) (0.0-3.38) ng/mL Troponin I (0.00-0.120) ng/mL Total Protein 7.6 (6.3-8.3) g/dL Albumin 3.5 (3.5-5.0) g/dL Globulin 4.1 H (2.2-3.9) gm/dL Albumin/Globulin Ratio 0.9 L (1.0-2.1) Vitamin B12 (239-931) pg/mL Thyroperoxidase Ab (<9) IU/mL 06/17/17 06/17/17 06/17/17 Range/Units 16:23 11:38 07:26 WBC (4.8-10.8) K/uL RBC (4.40-5.90) Mil/uL Hgb (12.0-18.0) g/dL Hct (35.0-51.0) % MCV (80.0-94.0) fL MCH (27.0-31.0) pg MCHC (33.0-37.0) g/dL RDW (11.5-14.5) % Plt Count (130-400) K/uL MPV (7.2-11.7) fL Neut % (Auto) (50.0-75.0) % Lymph % (Auto) (20.0-40.0) % Mower % (Auto) (0.0-10.0) % Eos % (Auto) (0.0-4.0) % Baso % (Auto) (0.0-2.0) % Neut # (1.8-7.0) K/uL Lymph # (1.0-4.3) K/uL Mower # (0.0-0.8) K/uL Eos # (0.0-0.7) K/uL Baso # (0.0-0.2) K/uL Sodium (132-148) mmol/L Potassium (3.6-5.2) mmol/L Chloride (98-107) mmol/L Carbon Dioxide (22-30) mmol/L Anion Gap (10-20) BUN (9-20) mg/dL Creatinine (0.8-1.5) mg/dL Est GFR ( Amer) Est GFR (Non-Af Amer) POC Glucose (mg/dL) 297 H 260 H 267 H (65-110) mg/dL Random Glucose (75-110) mg/dL Calcium (8.6-10.4) mg/dl Phosphorus (2.5-4.5) mg/dL Magnesium (1.6-2.3) mg/dL Total Bilirubin (0.2-1.3) mg/dL AST (17-59) U/L ALT (21-72) U/L Alkaline Phosphatase (38-126) U/L Total Creatine Kinase (55-170) U/L CK-MB (Mass) (0.0-3.38) ng/mL Troponin I (0.00-0.120) ng/mL Total Protein (6.3-8.3) g/dL Albumin (3.5-5.0) g/dL Globulin (2.2-3.9) gm/dL Albumin/Globulin Ratio (1.0-2.1) Vitamin B12 (239-931) pg/mL Thyroperoxidase Ab (<9) IU/mL 06/17/17 06/16/17 Range/Units 06:22 07:51 WBC (4.8-10.8) K/uL RBC (4.40-5.90) Mil/uL Hgb (12.0-18.0) g/dL Hct (35.0-51.0) % MCV (80.0-94.0) fL MCH (27.0-31.0) pg MCHC (33.0-37.0) g/dL RDW (11.5-14.5) % Plt Count (130-400) K/uL MPV (7.2-11.7) fL Neut % (Auto) (50.0-75.0) % Lymph % (Auto) (20.0-40.0) % Mower % (Auto) (0.0-10.0) % Eos % (Auto) (0.0-4.0) % Baso % (Auto) (0.0-2.0) % Neut # (1.8-7.0) K/uL Lymph # (1.0-4.3) K/uL Mower # (0.0-0.8) K/uL Eos # (0.0-0.7) K/uL Baso # (0.0-0.2) K/uL Sodium 139 (132-148) mmol/L Potassium 4.0 (3.6-5.2) mmol/L Chloride 100 (98-107) mmol/L Carbon Dioxide 29 (22-30) mmol/L Anion Gap 14 (10-20) BUN 21 H (9-20) mg/dL Creatinine 1.0 (0.8-1.5) mg/dL Est GFR ( Amer) > 60 Est GFR (Non-Af Amer) > 60 POC Glucose (mg/dL) (65-110) mg/dL Random Glucose 250 H (75-110) mg/dL Calcium 8.8 (8.6-10.4) mg/dl Phosphorus 3.8 (2.5-4.5) mg/dL Magnesium 2.2 (1.6-2.3) mg/dL Total Bilirubin 1.1 (0.2-1.3) mg/dL AST 32 (17-59) U/L ALT 49 (21-72) U/L Alkaline Phosphatase 50 (38-126) U/L Total Creatine Kinase 201 H (55-170) U/L CK-MB (Mass) 2.46 (0.0-3.38) ng/mL Troponin I 8.8800 H* (0.00-0.120) ng/mL Total Protein 7.5 (6.3-8.3) g/dL Albumin 3.5 (3.5-5.0) g/dL Globulin 4.0 H (2.2-3.9) gm/dL Albumin/Globulin Ratio 0.9 L (1.0-2.1) Vitamin B12 196 L (239-931) pg/mL Thyroperoxidase Ab <1 (<9) IU/mL Laboratory Results - last 24 hr 06/16/17 06/17/17 06/17/17 07:51 06:22 07:26 WBC RBC Hgb Hct MCV MCH MCHC RDW Plt Count MPV Neut % (Auto) Lymph % (Auto) Mower % (Auto) Eos % (Auto) Baso % (Auto) Neut # Lymph # Mower # Eos # Baso # Sodium 139 Potassium 4.0 Chloride 100 Carbon Dioxide 29 Anion Gap 14 BUN 21 H Creatinine 1.0 Est GFR ( Amer) > 60 Est GFR (Non-Af Amer) > 60 POC Glucose (mg/dL) 267 H Random Glucose 250 H Calcium 8.8 Phosphorus 3.8 Magnesium 2.2 Total Bilirubin 1.1 AST 32 ALT 49 Alkaline Phosphatase 50 Total Creatine Kinase 201 H CK-MB (Mass) 2.46 Troponin I 8.8800 H* Total Protein 7.5 Albumin 3.5 Globulin 4.0 H Albumin/Globulin Ratio 0.9 L Vitamin B12 196 L Thyroperoxidase Ab <1 06/17/17 06/17/17 06/17/17 11:38 16:23 21:19 WBC RBC Hgb Hct MCV MCH MCHC RDW Plt Count MPV Neut % (Auto) Lymph % (Auto) Mower % (Auto) Eos % (Auto) Baso % (Auto) Neut # Lymph # Mower # Eos # Baso # Sodium Potassium Chloride Carbon Dioxide Anion Gap BUN Creatinine Est GFR ( Amer) Est GFR (Non-Af Amer) POC Glucose (mg/dL) 260 H 297 H 267 H Random Glucose Calcium Phosphorus Magnesium Total Bilirubin AST ALT Alkaline Phosphatase Total Creatine Kinase CK-MB (Mass) Troponin I Total Protein Albumin Globulin Albumin/Globulin Ratio Vitamin B12 Thyroperoxidase Ab 06/18/17 06/18/17 06:26 06:26 WBC 10.6 RBC 4.04 L Hgb 11.5 L Hct 34.5 L MCV 85.5 MCH 28.6 MCHC 33.4 RDW 14.6 H Plt Count 224 MPV 9.4 Neut % (Auto) 75.1 H Lymph % (Auto) 12.5 L Mower % (Auto) 10.7 H Eos % (Auto) 1.4 Baso % (Auto) 0.3 Neut # 7.9 H Lymph # 1.3 Mower # 1.1 H Eos # 0.1 Baso # 0.0 Sodium 140 Potassium 4.0 Chloride 99 Carbon Dioxide 30 Anion Gap 14 BUN 21 H Creatinine 0.9 Est GFR ( Amer) > 60 Est GFR (Non-Af Amer) > 60 POC Glucose (mg/dL) Random Glucose 264 H Calcium 8.3 L Phosphorus 3.6 Magnesium 2.2 Total Bilirubin 1.4 H AST 25 ALT 35 Alkaline Phosphatase 51 Total Creatine Kinase CK-MB (Mass) Troponin I Total Protein 7.6 Albumin 3.5 Globulin 4.1 H Albumin/Globulin Ratio 0.9 L Vitamin B12 Thyroperoxidase Ab Fingerstick Blood Sugar Results: 297 Review of Systems - Constitutional Constitutional: absent: Fever, Chills, Sweats - Cardiovascular Cardiovascular: absent: Chest Pain - Respiratory Respiratory: absent: Cough, Dyspnea, Wheezing - Gastrointestinal Gastrointestinal: Constipation. absent: Diarrhea, Nausea, Vomiting - Genitourinary Genitourinary: absent: Difficulty Urinating - Musculoskeletal Musculoskeletal: absent: Numbness, Tingling - Psychiatric Psychiatric: Confusion, Memory Loss Critical Care Progress Note - Nutrition Nutrition: Nutrition Category Date Time Status Heart Healthy Diet [DIET] Diets 06/17/17 Lunch Active Assessment/Plan - Assessment and Plan (Free Text) Assessment: 76-year-old male with a history of diabetes, hyperthyroidism, hypertension, high cholesterol, CAD, triple vessel bypass, hypercholesterolemia, chronic pedal edema s/p fall with NSTEMI on admission with new onset AMS on 06/15. POD # 1 s/p cardiac cath Neuro: AMS Dr. Aguirre consulted Head CT: nonspecific white matter changes. opacification/ fluid within the left mastoid air cells. 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 No definite acute or subacute brain infarction at this time. Cardio: hx HTN, high cholesterol, hypercholesterolemia, triple vessel bypass, POD #1 s/p cardiac cath -Metoprolol Tartrate 25mg po BID (switched from 50mg HS on 06/18) -Rosuvastatin 10mg PO HS -Plavix 75 mg po daily -ASA 81mg po daily -Lovenox 40mg sc daily -Cardiac Cath cancelled yesterday due to AMS -Cardiac cath done this AM * Findings: 1. L Main: Patent 2. LAD: Mid 100% 3. L Cx: Distal 99%, OM2 99% 4. RCA: Mid 100% * Grafts: 1. DELGADILLO to LAD patent 2. SVG to OM1: patent 3. SVG to PDA 70% * Patient to go to [place] for PCI tomorrow Pulm: -Cxray 06/14: median sternotomy wires with evidence of CABG, heart size appears normal, atherosclerotic calcifications of the aorta, right hilar prominence -Duonebs q8h -Lasix 40mg po daily Endo: hx DM, hyperthryroidism -Glipizide 10 mg po BID -ISS ACHS increased from low to high (06/18) -accuchecks ACHS -Methimazole 10mg PO daily -HgA1C:8.2 -lipids: Triglycerides: 90, Cholesterol 102, LDL 57, HDL 33, Vit B12 226, Homocysteine 10.3 -Free t4: 1.23, TSH: 1.44 -Prolactin: 9 GI: constipation Colace 100 mg po TID Miralax once Prophylaxis: GI: Pepcid 20mg IVP daily DVT: SCDs, Lovenox 40mg sc daily <DoyleObdulio Kaiser - Last Filed: 06/19/17 09:53> CCU Objective - Vital Signs / Intake & Output Vital Signs (Last 4 hours): Vital Signs Pulse Resp BP Pulse Ox 06/19/17 06:55 78 27 H 153/72 H 97 06/19/17 06:00 85 24 97 06/19/17 05:55 87 25 H 150/78 96 Intake and Output (Last 8hrs): Intake & Output 06/18/17 06/19/17 06/19/17 22:59 06:59 14:59 Intake Total 400 0 Output Total 200 100 Balance 200 -100 Weight 199 lb 14.4 oz Intake: Oral 400 0 Output: Urine 200 100 Urine, Voided 200 100 Other: # Voids Urine, Voided 1 1 # Bowel Movements 0 - Medications Active Medications: Active Medications Generic Name Dose Route Start Last Admin Trade Name Freq PRN Reason Stop Dose Admin Acetaminophen 650 mg 06/16/17 17:16 06/16/17 17:26 Tylenol 325mg Tab PO 650 mg Q6 PRN Administration Pain, moderate (4-7) Albuterol/Ipratropium 3 ml 06/15/17 12:01 06/19/17 07:29 Duoneb 3 Mg/0.5 Mg (3 Ml) Ud INH 3 ml RQ8 GRACIE Administration Aspirin 81 mg 06/15/17 10:00 06/18/17 10:09 Ecotrin PO 81 mg DAILY GRACIE Administration Clopidogrel Bisulfate 75 mg 06/16/17 10:00 06/18/17 10:10 Plavix PO 75 mg DAILY GRACIE Administration Cyanocobalamin 1,000 mcg 06/18/17 10:00 06/18/17 11:09 Vitamin B12 1000 Mcg/Ml Inj IM 06/20/17 10:01 1,000 mcg DAILY GRACIE Administration Docusate Sodium 100 mg 06/15/17 10:00 06/18/17 17:14 Colace PO Not Given TID GRACIE Enoxaparin Sodium 40 mg 06/16/17 10:00 06/18/17 10:10 Lovenox SC 40 mg DAILY GRACIE Administration Famotidine 20 mg 06/19/17 10:00 Pepcid PO DAILY GRACIE Furosemide 40 mg 06/15/17 10:00 06/18/17 10:09 Lasix PO 40 mg DAILY GRACIE Administration Glipizide 10 mg 06/15/17 10:00 06/18/17 17:14 Glucotrol PO Not Given BID [facility] Insulin Human Regular 0 unit 06/18/17 09:40 06/19/17 07:37 Novolin R SC Not Given ACHS [facility] Protocol Lisinopril 2.5 mg 06/19/17 10:00 Zestril PO DAILY GRACIE Methimazole 10 mg 06/15/17 10:00 06/18/17 11:08 Tapazole PO 10 mg DAILY GRACIE Administration Metoprolol Tartrate 50 mg 06/19/17 10:00 Lopressor PO BID GRACIE Rosuvastatin Calcium 10 mg 06/15/17 22:00 06/18/17 21:33 Crestor PO 10 mg HS GRACIE Administration - Patient Studies Lab Studies: Lab Studies 06/19/17 06/19/17 06/19/17 Range/Units 07:19 06:17 06:17 WBC 11.5 H (4.8-10.8) K/uL RBC 4.09 L (4.40-5.90) Mil/uL Hgb 11.4 L (12.0-18.0) g/dL Hct 34.9 L (35.0-51.0) % MCV 85.5 (80.0-94.0) fL MCH 27.9 (27.0-31.0) pg MCHC 32.6 L (33.0-37.0) g/dL RDW 14.4 (11.5-14.5) % Plt Count 235 (130-400) K/uL MPV 9.7 (7.2-11.7) fL Neut % (Auto) 73.4 (50.0-75.0) % Lymph % (Auto) 11.9 L (20.0-40.0) % Mower % (Auto) 11.6 H (0.0-10.0) % Eos % (Auto) 2.4 (0.0-4.0) % Baso % (Auto) 0.7 (0.0-2.0) % Neut # 8.4 H (1.8-7.0) K/uL Lymph # 1.4 (1.0-4.3) K/uL Mower # 1.3 H (0.0-0.8) K/uL Eos # 0.3 (0.0-0.7) K/uL Baso # 0.1 (0.0-0.2) K/uL Sodium 139 (132-148) mmol/L Potassium 4.0 (3.6-5.2) mmol/L Chloride 101 (98-107) mmol/L Carbon Dioxide 26 (22-30) mmol/L Anion Gap 16 (10-20) BUN 24 H (9-20) mg/dL Creatinine 0.8 (0.8-1.5) mg/dL Est GFR ( Amer) > 60 Est GFR (Non-Af Amer) > 60 POC Glucose (mg/dL) 218 H (65-110) mg/dL Random Glucose 186 H (75-110) mg/dL Calcium 8.6 (8.6-10.4) mg/dl Phosphorus 3.6 (2.5-4.5) mg/dL Magnesium 2.2 (1.6-2.3) mg/dL Total Bilirubin 1.6 H (0.2-1.3) mg/dL AST 23 (17-59) U/L ALT 46 (21-72) U/L Alkaline Phosphatase 61 (38-126) U/L Total Protein 8.0 (6.3-8.3) g/dL Albumin 3.7 (3.5-5.0) g/dL Globulin 4.2 H (2.2-3.9) gm/dL Albumin/Globulin Ratio 0.9 L (1.0-2.1) 06/18/17 06/18/17 06/18/17 Range/Units 21:04 15:58 11:56 WBC (4.8-10.8) K/uL RBC (4.40-5.90) Mil/uL Hgb (12.0-18.0) g/dL Hct (35.0-51.0) % MCV (80.0-94.0) fL MCH (27.0-31.0) pg MCHC (33.0-37.0) g/dL RDW (11.5-14.5) % Plt Count (130-400) K/uL MPV (7.2-11.7) fL Neut % (Auto) (50.0-75.0) % Lymph % (Auto) (20.0-40.0) % Mower % (Auto) (0.0-10.0) % Eos % (Auto) (0.0-4.0) % Baso % (Auto) (0.0-2.0) % Neut # (1.8-7.0) K/uL Lymph # (1.0-4.3) K/uL Mower # (0.0-0.8) K/uL Eos # (0.0-0.7) K/uL Baso # (0.0-0.2) K/uL Sodium (132-148) mmol/L Potassium (3.6-5.2) mmol/L Chloride (98-107) mmol/L Carbon Dioxide (22-30) mmol/L Anion Gap (10-20) BUN (9-20) mg/dL Creatinine (0.8-1.5) mg/dL Est GFR ( Amer) Est GFR (Non-Af Amer) POC Glucose (mg/dL) 188 H 273 H 406 H* (65-110) mg/dL Random Glucose (75-110) mg/dL Calcium (8.6-10.4) mg/dl Phosphorus (2.5-4.5) mg/dL Magnesium (1.6-2.3) mg/dL Total Bilirubin (0.2-1.3) mg/dL AST (17-59) U/L ALT (21-72) U/L Alkaline Phosphatase (38-126) U/L Total Protein (6.3-8.3) g/dL Albumin (3.5-5.0) g/dL Globulin (2.2-3.9) gm/dL Albumin/Globulin Ratio (1.0-2.1) 06/18/17 Range/Units 11:50 WBC (4.8-10.8) K/uL RBC (4.40-5.90) Mil/uL Hgb (12.0-18.0) g/dL Hct (35.0-51.0) % MCV (80.0-94.0) fL MCH (27.0-31.0) pg MCHC (33.0-37.0) g/dL RDW (11.5-14.5) % Plt Count (130-400) K/uL MPV (7.2-11.7) fL Neut % (Auto) (50.0-75.0) % Lymph % (Auto) (20.0-40.0) % Mower % (Auto) (0.0-10.0) % Eos % (Auto) (0.0-4.0) % Baso % (Auto) (0.0-2.0) % Neut # (1.8-7.0) K/uL Lymph # (1.0-4.3) K/uL Mower # (0.0-0.8) K/uL Eos # (0.0-0.7) K/uL Baso # (0.0-0.2) K/uL Sodium (132-148) mmol/L Potassium (3.6-5.2) mmol/L Chloride (98-107) mmol/L Carbon Dioxide (22-30) mmol/L Anion Gap (10-20) BUN (9-20) mg/dL Creatinine (0.8-1.5) mg/dL Est GFR ( Amer) Est GFR (Non-Af Amer) POC Glucose (mg/dL) 440 H* (65-110) mg/dL Random Glucose (75-110) mg/dL Calcium (8.6-10.4) mg/dl Phosphorus (2.5-4.5) mg/dL Magnesium (1.6-2.3) mg/dL Total Bilirubin (0.2-1.3) mg/dL AST (17-59) U/L ALT (21-72) U/L Alkaline Phosphatase (38-126) U/L Total Protein (6.3-8.3) g/dL Albumin (3.5-5.0) g/dL Globulin (2.2-3.9) gm/dL Albumin/Globulin Ratio (1.0-2.1) Laboratory Results - last 24 hr 06/18/17 06/18/17 06/18/17 11:50 11:56 15:58 WBC RBC Hgb Hct MCV MCH MCHC RDW Plt Count MPV Neut % (Auto) Lymph % (Auto) Mower % (Auto) Eos % (Auto) Baso % (Auto) Neut # Lymph # Mower # Eos # Baso # Sodium Potassium Chloride Carbon Dioxide Anion Gap BUN Creatinine Est GFR ( Amer) Est GFR (Non-Af Amer) POC Glucose (mg/dL) 440 H* 406 H* 273 H Random Glucose Calcium Phosphorus Magnesium Total Bilirubin AST ALT Alkaline Phosphatase Total Protein Albumin Globulin Albumin/Globulin Ratio 06/18/17 06/19/17 06/19/17 21:04 06:17 06:17 WBC 11.5 H RBC 4.09 L Hgb 11.4 L Hct 34.9 L MCV 85.5 MCH 27.9 MCHC 32.6 L RDW 14.4 Plt Count 235 MPV 9.7 Neut % (Auto) 73.4 Lymph % (Auto) 11.9 L Mower % (Auto) 11.6 H Eos % (Auto) 2.4 Baso % (Auto) 0.7 Neut # 8.4 H Lymph # 1.4 Mower # 1.3 H Eos # 0.3 Baso # 0.1 Sodium 139 Potassium 4.0 Chloride 101 Carbon Dioxide 26 Anion Gap 16 BUN 24 H Creatinine 0.8 Est GFR ( Amer) > 60 Est GFR (Non-Af Amer) > 60 POC Glucose (mg/dL) 188 H Random Glucose 186 H Calcium 8.6 Phosphorus 3.6 Magnesium 2.2 Total Bilirubin 1.6 H AST 23 ALT 46 Alkaline Phosphatase 61 Total Protein 8.0 Albumin 3.7 Globulin 4.2 H Albumin/Globulin Ratio 0.9 L 06/19/17 07:19 WBC RBC Hgb Hct MCV MCH MCHC RDW Plt Count MPV Neut % (Auto) Lymph % (Auto) Mower % (Auto) Eos % (Auto) Baso % (Auto) Neut # Lymph # Mower # Eos # Baso # Sodium Potassium Chloride Carbon Dioxide Anion Gap BUN Creatinine Est GFR ( Amer) Est GFR (Non-Af Amer) POC Glucose (mg/dL) 218 H Random Glucose Calcium Phosphorus Magnesium Total Bilirubin AST ALT Alkaline Phosphatase Total Protein Albumin Globulin Albumin/Globulin Ratio Critical Care Progress Note - Nutrition Nutrition: Nutrition Category Date Time Status Heart Healthy Diet [DIET] Diets 06/19/17 Breakfast Active Attending/Attestation - Attestation I have personally seen and examined this patient.: Yes I have reviewed all pertinent clinical information: Yes Notes (Text): Today: June The Patient was seen and examined at the bedside, Medical records reviewed, and management issues were discussed and formulated with the house staff. I have reviewed all the relevant clinical, laboratory, hemodynamic, radiographic data and medications Events reviewed Pain issues, skin care, head of the bed elevation, glycemic control were addressed. Agree with above treatment plans as transcribed in note I concur with resident's assessment and plan of care as transcribed in Dr. Silverman note.
[2017-06-18] MEDS: (Novolin R) Insulin Human Regular 100 units/ml vial SC SCH ×4 (07:54→22:05)
[2017-06-18] MEDS: Albuterol-Ipratrop 3 mg / 0.5 (3 ml) UD INH SCH ×3 (07:59→23:54)
[2017-06-18] MEDS ORDERED: POLYETHYLENE GLYCOL 3350 17 GM/Dose PACKET PO ONE ×2 (08:19→10:15)
--- NOTE | 2017-06-18 08:21 | PN ---
DATE: 06/17/2017 SUBJECTIVE: The patient is seen today, 06/17/2017. He is seen post catheterization. Patient is still slightly sedated at the time of this examination. PHYSICAL EXAMINATION: VITAL SIGNS: Blood pressure 115/55, temperature 98.4, respiratory rate of 20, and pulse is 73. HEENT: Pupils equal, reactive to light. Normal-appearing mucosa of the conjunctivae, oropharyngeal, and nasal membrane mucosa. NECK: Supple. No JVD. No carotid bruit. No lymph node. No thyromegaly. CHEST/LUNGS: Bilateral symmetrical expansion. Good air exchange. No rales, no rhonchi. CARDIOVASCULAR SYSTEM: PMI not localized. S1, S2. No additional sounds. ABDOMEN: Normoactive bowel sounds. No tenderness. No organomegaly. No masses. EXTREMITIES: No cyanosis, no clubbing, no edema. PERFORMANCE MANAGER: Alert, awake, oriented x2. No neurological deficit could be appreciated. ASSESSMENT: 1. [id number] myocardial infarction with right coronary artery stenosis. Plan, the patient is for percutaneous coronary intervention by Dr. Arce. 2. Type 2 diabetes mellitus. 3. Hypertension. PLAN: Follow Cardiology recommendations and continue current medications and management. Noemi Huertas MD
--- NOTE | 2017-06-18 09:27 | PN ---
DATE: 06/18/2017 NEUROLOGICAL PROBLEM: Change in mental status, possible subclinical seizures. PHYSICAL EXAMINATION: VITAL SIGNS: Blood pressure 126/56, mean arterial pressure of 78, respiratory rate 16, temperature afebrile. The patient is arousable, little confused. She do accept that she is in the hospital. With regard to her consciousness , good. She seems to be aware of problem. She moves all 4 extremities. The patient did undergo a cardiac catheterization yesterday and found that she had a coronary artery disease, need stent placement at left circumflex artery. The patient will be transferred to [facility] for stenting tomorrow. Continue the present management. The patient will be followed while she is in the hospital. Soham Aguirre MD 06/18/2017
--- NOTE | 2017-06-18 09:53 | EEG ---
DATE: 06/16/2017 This is a 16-channel electroencephalogram of awake and drowsy adult. During the study, photic stimulation was performed. Hyperventilation was not performed. The resting electroencephalogram consists of 30 to 40 microvolts, 6 to 7 Hz high theta activity is noted at parietal and occipital leads. Anteriorly, fast activity superimposed with 2 to 3 Hz delta activities seen. The photic stimulation did not evoke any response noted at 2-20 Hz. IMPRESSION: This is an abnormal electroencephalogram because of persistent slowing throughout the record suggestive of bilateral cerebral dysfunction. This is probably secondary to metabolic, vascular, or degenerative process. Please correlate the findings with neurological and radiological studies. Soham Aguirre MD
[2017-06-18] MEDS: Enoxaparin 40 mg Syringe SC SCH (10:10)
--- NOTE | 2017-06-18 18:23 | RAD ---
HISTORY: increase cough, secretions COMPARISON: Portable chest 06/14/2017. FINDINGS: LUNGS: No active pulmonary disease. PLEURA: No significant pleural effusion identified, no pneumothorax apparent. CARDIOVASCULAR: Stable right hilar prominence. Median sternotomy wires again seen with cardiac size stable. No pulmonary vascular derangement. OSSEOUS STRUCTURES: No significant abnormalities. VISUALIZED UPPER ABDOMEN: Normal. OTHER FINDINGS: None. IMPRESSION: No interval acute cardiopulmonary disease appreciated. Upper limits normal cardiac silhouette again seen with mild right hilar prominence.
--- NOTE | 2017-06-18 22:37 | PN ---
DATE: 06/18/2017 SUBJECTIVE: He is not in any cardiopulmonary distress. The patient is mildly confused. PHYSICAL EXAMINATION VITAL SIGNS: Blood pressure is 140/70, temperature 98.3, respiratory rate 20 and pulse 83. HEENT: Pupils equal and reactive to light. NECK: Supple. No JVD. No carotid bruit. No lymph node. No thyromegaly. CHEST AND LUNGS: Bilateral symmetrical expansion. Good air exchange. No rales, no rhonchi. CARDIOVASCULAR SYSTEM: PMI not localized. S1 and S2. No additional sounds. ABDOMEN: Normoactive bowel sounds. No tenderness. No organomegaly. No masses. EXTREMITIES: No cyanosis, no clubbing, no edema. CENTRAL NERVOUS SYSTEM: Alert, awake, and oriented x2. No neurological deficit could be appreciated. ASSESSMENT: [id number] myocardial infarction, hypertension, type 2 diabetes mellitus and hypercholesterolemia. PLAN: Follow cardiology recommendations. Continue current management and physical therapy as tolerated. Out of bed to chair. Noemi Huertas MD
--- NOTE | 2017-06-19 | CP.PCM.PN ---
Subjective - Date & Time of Evaluation Date of Evaluation: 06/18/17 Time of Evaluation: 17:40 - Subjective Subjective: Patient seen and evaluated Denies chest pain and dyspnea For PCI on Thursday (Not a candidate for PCI at [facility] due to altered mental status. CPORT contraindication Objective - Vital Signs/Intake and Output Vital Signs (last 24 hours): Temp Pulse Resp BP Pulse Ox 98.4 F 79 19 147/77 97 06/18/17 20:00 06/18/17 22:00 06/18/17 22:00 06/18/17 21:55 06/18/17 22:00 Intake and Output: 06/18/17 06/19/17 18:59 06:59 Intake Total 1200 0 Output Total 200 Balance 1000 0 - Medications Medications: Current Medications Acetaminophen (Tylenol 325mg Tab) 650 mg PO Q6 PRN PRN Reason: Pain, moderate (4-7) Last Admin: 06/16/17 17:26 Dose: 650 mg Albuterol/Ipratropium (Duoneb 3 Mg/0.5 Mg (3 Ml) Ud) 3 ml INH RQ8 [facility] Last Admin: 06/18/17 23:54 Dose: 3 ml Aspirin (Ecotrin) 81 mg PO DAILY [facility] Last Admin: 06/18/17 10:09 Dose: 81 mg Clopidogrel Bisulfate (Plavix) 75 mg PO DAILY [facility] Last Admin: 06/18/17 10:10 Dose: 75 mg Cyanocobalamin (Vitamin B12 1000 Mcg/Ml Inj) 1,000 mcg IM DAILY [facility] Stop: 06/20/17 10:01 Last Admin: 06/18/17 11:09 Dose: 1,000 mcg Docusate Sodium (Colace) 100 mg PO TID [facility] Last Admin: 06/18/17 17:14 Dose: Not Given Enoxaparin Sodium (Lovenox) 40 mg SC DAILY [facility] Last Admin: 06/18/17 10:10 Dose: 40 mg Famotidine (Pepcid) 20 mg IVP DAILY [facility] Last Admin: 06/18/17 10:07 Dose: 20 mg Furosemide (Lasix) 40 mg PO DAILY [facility] Last Admin: 06/18/17 10:09 Dose: 40 mg Glipizide (Glucotrol) 10 mg PO BID [facility] Last Admin: 06/18/17 17:14 Dose: Not Given Insulin Human Regular (Novolin R) 0 unit SC ACHS [facility] PRN Reason: Protocol Last Admin: 06/18/17 22:05 Dose: Not Given Methimazole (Tapazole) 10 mg PO DAILY [facility] Last Admin: 06/18/17 11:08 Dose: 10 mg Metoprolol Tartrate (Lopressor) 25 mg PO BID [facility] Last Admin: 06/18/17 18:27 Dose: 25 mg Rosuvastatin Calcium (Crestor) 10 mg PO HS [facility] Last Admin: 06/18/17 21:33 Dose: 10 mg - Labs Labs: 06/18/17 06:26 06/18/17 06:26 PT 13.2 SECONDS (9.7-12.2) H 06/14/17 16:14 INR 1.2 06/14/17 16:14
[2017-06-19 06:28] LABS: BASO # 0.1 K/uL (0.0-0.2); BASO % 0.7 % (0.0-2.0); EOS # 0.3 K/uL (0.0-0.7); EOS % 2.4 % (0.0-4.0); HEMATOCRIT 34.9 % (35.0-51.0); LYMPH # 1.4 K/uL (1.0-4.3); LYMPH % 11.9 % (20.0-40.0); MEAN CELL VOLUME 85.5 fL (80.0-94.0); MEAN CORPUSCULAR HEMOGLOBIN 27.9 pg (27.0-31.0); MEAN CORPUSCULAR HGB CONC 32.6 g/dL (33.0-37.0); MEAN PLATELET VOLUME 9.7 fL (7.2-11.7); MONO # 1.3 K/uL (0.0-0.8); MONO % 11.6 % (0.0-10.0); RED CELL DISTRIBUTION WIDTH 14.4 % (11.5-14.5); WHITE BLOOD COUNT 11.5 K/uL (4.8-10.8)
[2017-06-19 06:46] LABS: ALB/GLOB RATIO 0.9 (1.0-2.1); ALKALINE PHOSPHATASE 61 U/L (38-126); ALT/SGPT 46 U/L (21-72); AST/SGOT 23 U/L (17-59); BILIRUBIN,TOTAL 1.6 mg/dL (0.2-1.3); BLOOD UREA NITROGEN 24 mg/dL (9-20); CALCIUM 8.6 mg/dl (8.6-10.4); CARBON DIOXIDE 26 mmol/L (22-30); CHLORIDE 101 mmol/L (98-107); GFR AFRICAN-AMERICAN > 60; GLUCOSE,RANDOM 186 mg/dL (75-110); MAGNESIUM 2.2 mg/dL (1.6-2.3); PHOSPHOROUS 3.6 mg/dL (2.5-4.5); SODIUM 139 mmol/L (132-148)
[2017-06-19] MEDS: Albuterol-Ipratrop 3 mg / 0.5 (3 ml) UD INH SCH ×2 (07:29→17:00)
[2017-06-19] MEDS: (Novolin R) Insulin Human Regular 100 units/ml vial SC SCH ×5 (07:34→21:28)
--- NOTE | 2017-06-19 08:56 | PN ---
DATE: 06/19/2017 TIME OF EVALUATION: 6:45 a.m. NEUROLOGICAL PROBLEM: Hypoperfusion syndrome with superimposed toxic versus metabolic encephalopathy. PHYSICAL EXAMINATION: VITAL SIGNS: Blood pressure 150/78, mean arterial pressure of 94, respiratory rate of 24, temperature afebrile, and pulse rate of 85. The patient is sleepy, arousable on calling his name. He is still confused. He could not recognize where he is at present. He moves all four extremities as per the command. The patient's condition has been discussed with the machining engineer. The patient is scheduled to have a stent at [facility], which would be done on Thursday. When medically stable, the patient can be given cholinesterase inhibitor for his existing probable vascular dementia. Soham Aguirre MD
[2017-06-19] MEDS: Enoxaparin 40 mg Syringe SC SCH (10:49)
[2017-06-19] MEDS ORDERED: Magnesium Hydroxide Susp 30 ml UD PO PRN (11:49)
--- NOTE | 2017-06-19 11:50 | CP.CCUPN ---
CCU Subjective - Physician Review Subjective (Free Text): Patient seen and examined at bedside and in no acute distress. Patient has not had a bowel movement in multiple days. Patient was having some cough yesterday but better today. Patient denies shortness of breath, chest pain, abdominal pain , diarrhea, nausea, or vomiting. CCU Objective - Vital Signs / Intake & Output Vital Signs (Last 4 hours): Vital Signs Pulse Resp BP Pulse Ox 06/19/17 10:47 144/65 06/19/17 08:35 98 H 16 162/77 H 96 06/19/17 07:55 91 H 29 H 155/78 H 97 Intake and Output (Last 8hrs): Intake & Output 06/18/17 06/19/17 06/19/17 22:59 06:59 14:59 Intake Total 400 0 Output Total 200 100 Balance 200 -100 Weight 199 lb 14.4 oz Intake: Oral 400 0 Output: Urine 200 100 Urine, Voided 200 100 Other: # Voids Urine, Voided 1 1 # Bowel Movements 0 - Physical Exam Head: Positive for: Atraumatic, Normocephalic Pupils: Positive for: PERRL Mouth: Positive for: Moist Mucous Membranes Respiratory/Chest: Negative for: Respiratory Distress, Accessory Muscle Use Cardiovascular: Positive for: Normal S1, S2. Negative for: Regular Rate and Rhythm Abdomen: Positive for: Normal Bowel Sounds. Negative for: Tenderness, Distention Upper Extremity: Positive for: Normal Inspection Lower Extremity: Positive for: Edema, Erythema. Negative for: Normal Inspection Neurological: Positive for: GCS=15 Skin: Positive for: Warm, Dry, Erythematous Psychiatric: Positive for: Alert. Negative for: Oriented x 3 - Medications Active Medications: Active Medications Generic Name Dose Route Start Last Admin Trade Name Freq PRN Reason Stop Dose Admin Acetaminophen 650 mg 06/16/17 17:16 06/16/17 17:26 Tylenol 325mg Tab PO 650 mg Q6 PRN Administration Pain, moderate (4-7) Albuterol/Ipratropium 3 ml 06/15/17 12:01 06/19/17 07:29 Duoneb 3 Mg/0.5 Mg (3 Ml) Ud INH 3 ml RQ8 [facility] Administration Aspirin 81 mg 06/15/17 10:00 06/19/17 10:47 Ecotrin PO 81 mg DAILY [facility] Administration Clopidogrel Bisulfate 75 mg 06/16/17 10:00 06/19/17 10:49 Plavix PO 75 mg DAILY [facility] Administration Cyanocobalamin 1,000 mcg 06/18/17 10:00 06/19/17 10:50 Vitamin B12 1000 Mcg/Ml Inj IM 06/20/17 10:01 1,000 mcg DAILY [facility] Administration Docusate Sodium 100 mg 06/15/17 10:00 06/19/17 10:47 Colace PO 100 mg TID [facility] Administration Enoxaparin Sodium 40 mg 06/16/17 10:00 06/19/17 10:49 Lovenox SC 40 mg DAILY [facility] Administration Famotidine 20 mg 06/19/17 10:00 06/19/17 10:49 Pepcid PO 20 mg DAILY [facility] Administration Furosemide 40 mg 06/15/17 10:00 06/19/17 10:47 Lasix PO 40 mg DAILY [facility] Administration Glipizide 10 mg 06/15/17 10:00 06/19/17 10:47 Glucotrol PO 10 mg BID [facility] Administration Insulin Human Regular 0 unit 06/18/17 09:40 06/19/17 07:37 Novolin R SC Not Given A[facility]S [facility] Protocol Lisinopril 2.5 mg 06/19/17 10:00 06/19/17 10:50 Zestril PO 2.5 mg DAILY [facility] Administration Methimazole 10 mg 06/15/17 10:00 06/19/17 10:49 Tapazole PO 10 mg DAILY [facility] Administration Metoprolol Tartrate 50 mg 06/19/17 10:00 06/19/17 10:49 Lopressor PO 50 mg BID [facility] Administration Rosuvastatin Calcium 10 mg 06/15/17 22:00 06/18/17 21:33 Crestor PO 10 mg HS [facility] Administration - Patient Studies Lab Studies: Lab Studies 06/19/17 06/19/17 06/19/17 Range/Units 11:30 07:19 06:17 WBC (4.8-10.8) K/uL RBC (4.40-5.90) Mil/uL Hgb (12.0-18.0) g/dL Hct (35.0-51.0) % MCV (80.0-94.0) fL MCH (27.0-31.0) pg MCHC (33.0-37.0) g/dL RDW (11.5-14.5) % Plt Count (130-400) K/uL MPV (7.2-11.7) fL Neut % (Auto) (50.0-75.0) % Lymph % (Auto) (20.0-40.0) % [place] % (Auto) (0.0-10.0) % Eos % (Auto) (0.0-4.0) % Baso % (Auto) (0.0-2.0) % Neut # (1.8-7.0) K/uL Lymph # (1.0-4.3) K/uL [place] # (0.0-0.8) K/uL Eos # (0.0-0.7) K/uL Baso # (0.0-0.2) K/uL Sodium 139 (132-148) mmol/L Potassium 4.0 (3.6-5.2) mmol/L Chloride 101 (98-107) mmol/L Carbon Dioxide 26 (22-30) mmol/L Anion Gap 16 (10-20) BUN 24 H (9-20) mg/dL Creatinine 0.8 (0.8-1.5) mg/dL Est GFR ( Amer) > 60 Est GFR (Non-Af Amer) > 60 POC Glucose (mg/dL) 285 H 218 H (65-110) mg/dL Random Glucose 186 H (75-110) mg/dL Calcium 8.6 (8.6-10.4) mg/dl Phosphorus 3.6 (2.5-4.5) mg/dL Magnesium 2.2 (1.6-2.3) mg/dL Total Bilirubin 1.6 H (0.2-1.3) mg/dL AST 23 (17-59) U/L ALT 46 (21-72) U/L Alkaline Phosphatase 61 (38-126) U/L Total Protein 8.0 (6.3-8.3) g/dL Albumin 3.7 (3.5-5.0) g/dL Globulin 4.2 H (2.2-3.9) gm/dL Albumin/Globulin Ratio 0.9 L (1.0-2.1) 06/19/17 06/18/17 06/18/17 Range/Units 06:17 21:04 15:58 WBC 11.5 H (4.8-10.8) K/uL RBC 4.09 L (4.40-5.90) Mil/uL Hgb 11.4 L (12.0-18.0) g/dL Hct 34.9 L (35.0-51.0) % MCV 85.5 (80.0-94.0) fL MCH 27.9 (27.0-31.0) pg MCHC 32.6 L (33.0-37.0) g/dL RDW 14.4 (11.5-14.5) % Plt Count 235 (130-400) K/uL MPV 9.7 (7.2-11.7) fL Neut % (Auto) 73.4 (50.0-75.0) % Lymph % (Auto) 11.9 L (20.0-40.0) % [place] % (Auto) 11.6 H (0.0-10.0) % Eos % (Auto) 2.4 (0.0-4.0) % Baso % (Auto) 0.7 (0.0-2.0) % Neut # 8.4 H (1.8-7.0) K/uL Lymph # 1.4 (1.0-4.3) K/uL [place] # 1.3 H (0.0-0.8) K/uL Eos # 0.3 (0.0-0.7) K/uL Baso # 0.1 (0.0-0.2) K/uL Sodium (132-148) mmol/L Potassium (3.6-5.2) mmol/L Chloride (98-107) mmol/L Carbon Dioxide (22-30) mmol/L Anion Gap (10-20) BUN (9-20) mg/dL Creatinine (0.8-1.5) mg/dL Est GFR ( Amer) Est GFR (Non-Af Amer) POC Glucose (mg/dL) 188 H 273 H (65-110) mg/dL Random Glucose (75-110) mg/dL Calcium (8.6-10.4) mg/dl Phosphorus (2.5-4.5) mg/dL Magnesium (1.6-2.3) mg/dL Total Bilirubin (0.2-1.3) mg/dL AST (17-59) U/L ALT (21-72) U/L Alkaline Phosphatase (38-126) U/L Total Protein (6.3-8.3) g/dL Albumin (3.5-5.0) g/dL Globulin (2.2-3.9) gm/dL Albumin/Globulin Ratio (1.0-2.1) 06/18/17 06/18/17 Range/Units 11:56 11:50 WBC (4.8-10.8) K/uL RBC (4.40-5.90) Mil/uL Hgb (12.0-18.0) g/dL Hct (35.0-51.0) % MCV (80.0-94.0) fL MCH (27.0-31.0) pg MCHC (33.0-37.0) g/dL RDW (11.5-14.5) % Plt Count (130-400) K/uL MPV (7.2-11.7) fL Neut % (Auto) (50.0-75.0) % Lymph % (Auto) (20.0-40.0) % [place] % (Auto) (0.0-10.0) % Eos % (Auto) (0.0-4.0) % Baso % (Auto) (0.0-2.0) % Neut # (1.8-7.0) K/uL Lymph # (1.0-4.3) K/uL [place] # (0.0-0.8) K/uL Eos # (0.0-0.7) K/uL Baso # (0.0-0.2) K/uL Sodium (132-148) mmol/L Potassium (3.6-5.2) mmol/L Chloride (98-107) mmol/L Carbon Dioxide (22-30) mmol/L Anion Gap (10-20) BUN (9-20) mg/dL Creatinine (0.8-1.5) mg/dL Est GFR ( Amer) Est GFR (Non-Af Amer) POC Glucose (mg/dL) 406 H* 440 H* (65-110) mg/dL Random Glucose (75-110) mg/dL Calcium (8.6-10.4) mg/dl Phosphorus (2.5-4.5) mg/dL Magnesium (1.6-2.3) mg/dL Total Bilirubin (0.2-1.3) mg/dL AST (17-59) U/L ALT (21-72) U/L Alkaline Phosphatase (38-126) U/L Total Protein (6.3-8.3) g/dL Albumin (3.5-5.0) g/dL Globulin (2.2-3.9) gm/dL Albumin/Globulin Ratio (1.0-2.1) Laboratory Results - last 24 hr 06/18/17 06/18/17 06/18/17 11:50 11:56 15:58 WBC RBC Hgb Hct MCV MCH MCHC RDW Plt Count MPV Neut % (Auto) Lymph % (Auto) [place] % (Auto) Eos % (Auto) Baso % (Auto) Neut # Lymph # [place] # Eos # Baso # Sodium Potassium Chloride Carbon Dioxide Anion Gap BUN Creatinine Est GFR ( Amer) Est GFR (Non-Af Amer) POC Glucose (mg/dL) 440 H* 406 H* 273 H Random Glucose Calcium Phosphorus Magnesium Total Bilirubin AST ALT Alkaline Phosphatase Total Protein Albumin Globulin Albumin/Globulin Ratio 06/18/17 06/19/17 06/19/17 21:04 06:17 06:17 WBC 11.5 H RBC 4.09 L Hgb 11.4 L Hct 34.9 L MCV 85.5 MCH 27.9 MCHC 32.6 L RDW 14.4 Plt Count 235 MPV 9.7 Neut % (Auto) 73.4 Lymph % (Auto) 11.9 L [place] % (Auto) 11.6 H Eos % (Auto) 2.4 Baso % (Auto) 0.7 Neut # 8.4 H Lymph # 1.4 [place] # 1.3 H Eos # 0.3 Baso # 0.1 Sodium 139 Potassium 4.0 Chloride 101 Carbon Dioxide 26 Anion Gap 16 BUN 24 H Creatinine 0.8 Est GFR ( Amer) > 60 Est GFR (Non-Af Amer) > 60 POC Glucose (mg/dL) 188 H Random Glucose 186 H Calcium 8.6 Phosphorus 3.6 Magnesium 2.2 Total Bilirubin 1.6 H AST 23 ALT 46 Alkaline Phosphatase 61 Total Protein 8.0 Albumin 3.7 Globulin 4.2 H Albumin/Globulin Ratio 0.9 L 06/19/17 06/19/17 07:19 11:30 WBC RBC Hgb Hct MCV MCH MCHC RDW Plt Count MPV Neut % (Auto) Lymph % (Auto) [place] % (Auto) Eos % (Auto) Baso % (Auto) Neut # Lymph # [place] # Eos # Baso # Sodium Potassium Chloride Carbon Dioxide Anion Gap BUN Creatinine Est GFR ( Amer) Est GFR (Non-Af Amer) POC Glucose (mg/dL) 218 H 285 H Random Glucose Calcium Phosphorus Magnesium Total Bilirubin AST ALT Alkaline Phosphatase Total Protein Albumin Globulin Albumin/Globulin Ratio Fingerstick Blood Sugar Results: 273 Review of Systems - Constitutional Constitutional: absent: Fever, Chills - Cardiovascular Cardiovascular: Leg Edema. absent: Chest Pain, Dyspnea - Respiratory Respiratory: Cough - Gastrointestinal Gastrointestinal: Constipation. absent: Abdominal Pain, Nausea, Vomiting - Genitourinary Genitourinary: absent: Difficulty Urinating - Integumentary Integumentary: absent: Rash - Neurological Neurological: Memory Loss - Psychiatric Psychiatric: Confusion Critical Care Progress Note - Nutrition Nutrition: Nutrition Category Date Time Status Heart Healthy Diet [DIET] Diets 06/19/17 Breakfast Active Assessment/Plan - Assessment and Plan (Free Text) Assessment: 76-year-old male with a history of diabetes, hyperthyroidism, hypertension, high cholesterol, CAD, triple vessel bypass, hypercholesterolemia, chronic pedal edema s/p fall with NSTEMI on admission with new onset AMS on 06/15. POD # 2 s/p cardiac cath Plan today: Patient stable for transfer to telemetry. Patient will be going [place] [facility] [place]ursday for PCI. Neuro: AMS Dr. Aguirre consulted Head CT: nonspecific white matter changes. opacification/ fluid within the left mastoid air cells. 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 No definite acute or subacute brain infarction at this time. Cardio: hx HTN, high cholesterol, hypercholesterolemia, triple vessel bypass, POD #1 s/p cardiac cath -Metoprolol Tartrate 50mg po BID (increased on 06/19 from 25mg BID) -Rosuvastatin 10mg PO HS -Plavix 75 mg po daily -ASA 81mg po daily -Lisinopril 2.5 mg po daily (started on 06/19) -Cardiac Cath cancelled yesterday due to AMS -Cardiac cath done this AM * Findings: 1. L Main: Patent 2. LAD: Mid 100% 3. L Cx: Distal 99%, OM2 99% 4. RCA: Mid 100% * Grafts: 1. [place]GADILLO to LAD patent 2. SVG to OM1: patent 3. SVG to PDA 70% * Patient to go to [facility] Thursday for PCI Pulm: -Cxray 06/14: median sternotomy wires with evidence of CABG, heart size appears normal, atherosclerotic calcifications of the aorta, right hilar prominence -Duonebs q8h -Lasix 40mg po daily Endo: hx DM, hyperthryroidism -Glipizide 10 mg po BID -ISS ACHS increased from low to high (06/18) -accuchecks ACHS -Methimazole 10mg PO daily -HgA1C:8.2 -lipids: Triglycerides: 90, Cholesterol 102, LDL 57, HDL 33, Vit B12 226, Homocysteine 10.3 -Free t4: 1.23, TSH: 1.44 -Prolactin: 9 GI: constipation Colace 100 mg po TID Miralax once Milk of magnesia q6h PRN Prophylaxis: GI: Pepcid 20mg po daily DVT: SCDs, Lovenox 40mg sc daily swallow eval: honey thick liquids and bite sized, soft diet
[2017-06-19] MEDS: guaiFENesin DM 200 mg-20 mg/10 ml UD PO PRN (14:01)
--- NOTE | 2017-06-19 20:19 | CP.PCM.PN ---
Subjective - Date & Time of Evaluation Date of Evaluation: 06/19/17 Time of Evaluation: 08:40 - Subjective Subjective: Patient seen and evaluated Chest pain free Still not oriented to time and place For PCI Thursday Objective - Vital Signs/Intake and Output Vital Signs (last 24 hours): Temp Pulse Resp BP Pulse Ox 98.1 F 82 18 138/66 98 06/19/17 16:00 06/19/17 18:48 06/19/17 18:48 06/19/17 18:48 06/19/17 18:48 Intake and Output: 06/19/17 06/20/17 18:59 06:59 Intake Total 650 Output Total 500 Balance 150 - Medications Medications: Current Medications Acetaminophen (Tylenol 325mg Tab) 650 mg PO Q6 PRN PRN Reason: Pain, moderate (4-7) Last Admin: 06/16/17 17:26 Dose: 650 mg Albuterol/Ipratropium (Duoneb 3 Mg/0.5 Mg (3 Ml) Ud) 3 ml INH RQ8 [facility] Last Admin: 06/19/17 17:00 Dose: 3 ml Aspirin (Ecotrin) 81 mg PO DAILY [facility] Last Admin: 06/19/17 10:47 Dose: 81 mg Clopidogrel Bisulfate (Plavix) 75 mg PO DAILY [facility] Last Admin: 06/19/17 10:49 Dose: 75 mg Cyanocobalamin (Vitamin B12 1000 Mcg/Ml Inj) 1,000 mcg IM DAILY [facility] Stop: 06/20/17 10:01 Last Admin: 06/19/17 10:50 Dose: 1,000 mcg Docusate Sodium (Colace) 100 mg PO TID [facility] Last Admin: 06/19/17 17:21 Dose: 100 mg Enoxaparin Sodium (Lovenox) 40 mg SC DAILY [facility] Last Admin: 06/19/17 10:49 Dose: 40 mg Famotidine (Pepcid) 20 mg PO DAILY [facility] Last Admin: 06/19/17 10:49 Dose: 20 mg Furosemide (Lasix) 40 mg PO DAILY [facility] Last Admin: 06/19/17 10:47 Dose: 40 mg Glipizide (Glucotrol) 10 mg PO BID [facility] Last Admin: 06/19/17 17:21 Dose: 10 mg Guaifenesin/Dextromethorphan (Robitussin Dm) 10 ml PO Q4H PRN PRN Reason: Cough and congestion Last Admin: 06/19/17 14:01 Dose: 10 ml Insulin Human Regular (Novolin R) 0 unit SC ACHS [facility] PRN Reason: Protocol Last Admin: 06/19/17 17:13 Dose: 4 unit Lisinopril (Zestril) 2.5 mg PO DAILY [facility] Last Admin: 06/19/17 10:50 Dose: 2.5 mg Magnesium Hydroxide (Milk Of Magnesia) 30 ml PO Q6H PRN PRN Reason: Constipation Last Admin: 06/19/17 17:21 Dose: 30 ml Methimazole (Tapazole) 10 mg PO DAILY [facility] Last Admin: 06/19/17 10:49 Dose: 10 mg Metoprolol Tartrate (Lopressor) 50 mg PO BID [facility] Last Admin: 06/19/17 17:21 Dose: 50 mg Rosuvastatin Calcium (Crestor) 10 mg PO HS [facility] Last Admin: 06/18/17 21:33 Dose: 10 mg - Labs Labs: 06/19/17 06:17 06/19/17 06:17 PT 13.2 SECONDS (9.7-12.2) H 06/14/17 16:14 INR 1.2 06/14/17 16:14
[2017-06-20] MEDS: Albuterol-Ipratrop 3 mg / 0.5 (3 ml) UD INH SCH ×2 (00:39→07:25)
--- NOTE | 2017-06-20 00:57 | PN ---
DATE: 06/19/2017 SUBJECTIVE: He denied any chest pain. No shortness of breath. PHYSICAL EXAMINATION: VITAL SIGNS: Blood pressure 138/66, temperature 98.2, respiratory rate 20 and pulse 79. HEENT: Pupils equal, reactive to light. Normal-appearing mucosa of the conjunctivae, oropharyngeal, and nasal membrane mucosa. NECK: Supple. No JVD. No carotid bruit. No lymph node. No thyromegaly. CHEST AND LUNGS: Bilateral symmetrical expansion. Good air exchange. No rales. No rhonchi. CARDIOVASCULAR: PMI not localized. S1 and S2. No additional sounds. ABDOMEN: Normoactive bowel sounds. No tenderness or organomegaly. No masses. EXTREMITIES: No cyanosis. No clubbing. No edema. CENTRAL NERVOUS SYSTEM: Alert, awake, oriented x2. ASSESSMENT: 1. Status post non-ST elevation myocardial infarction. 2. Hypertension. 3. Type 2 diabetes mellitus. PLAN: Discussed the patient condition with Dr. Arce who arranged for transfer to [facility] for PCI. Noemi Huertas MD
[2017-06-20] MEDS: guaiFENesin DM 200 mg-20 mg/10 ml UD PO PRN ×2 (01:18→09:38)
[2017-06-20 06:36] LABS: BASO # 0.1 K/uL (0.0-0.2); BASO % 0.7 % (0.0-2.0); EOS # 0.3 K/uL (0.0-0.7); EOS % 2.7 % (0.0-4.0); HEMATOCRIT 33.9 % (35.0-51.0); LYMPH # 1.3 K/uL (1.0-4.3); LYMPH % 12.3 % (20.0-40.0); MEAN CELL VOLUME 85.1 fL (80.0-94.0); MEAN CORPUSCULAR HEMOGLOBIN 28.7 pg (27.0-31.0); MEAN CORPUSCULAR HGB CONC 33.7 g/dL (33.0-37.0); MEAN PLATELET VOLUME 9.4 fL (7.2-11.7); MONO # 1.2 K/uL (0.0-0.8); MONO % 11.4 % (0.0-10.0); RED CELL DISTRIBUTION WIDTH 14.1 % (11.5-14.5); WHITE BLOOD COUNT 10.5 K/uL (4.8-10.8)
[2017-06-20 06:48] LABS: CHLORIDE 100 mmol/L (98-107); POTASSIUM 3.8 mmol/L (3.6-5.2); SODIUM 136 mmol/L (132-148)
[2017-06-20 06:50] LABS: ALB/GLOB RATIO 0.8 (1.0-2.1); AST/SGOT 23 U/L (17-59); BILIRUBIN,TOTAL 1.4 mg/dL (0.2-1.3); CARBON DIOXIDE 24 mmol/L (22-30); GFR AFRICAN-AMERICAN > 60
[2017-06-20 06:51] LABS: ALKALINE PHOSPHATASE 60 U/L (38-126); ALT/SGPT 41 U/L (21-72); BLOOD UREA NITROGEN 21 mg/dL (9-20); CALCIUM 8.5 mg/dl (8.6-10.4); GLUCOSE,RANDOM 180 mg/dL (75-110); MAGNESIUM 2.3 mg/dL (1.6-2.3); PHOSPHOROUS 3.4 mg/dL (2.5-4.5)
[2017-06-20] MEDS: (Novolin R) Insulin Human Regular 100 units/ml vial SC SCH ×4 (08:15→22:02)
[2017-06-20] MEDS: Enoxaparin 40 mg Syringe SC SCH (09:37)
--- NOTE | 2017-06-20 18:07 | PN ---
DATE: 06/20/2017 DAILY PROGRESS NOTE SUBJECTIVE: He is not having any chest pain but the patient has cough, mostly dry with some shortness of breath. OBJECTIVE: VITAL SIGNS: Blood pressure is 115/54, temperature 97.5, respiratory rate 20 and pulse 68. HEENT: Pupils equal, reactive to light. Normal-appearing mucosa of the conjunctivae, oropharynx and nasal membrane mucosa. NECK: Supple. No JVD. No carotid bruit. No lymph node. No thyromegaly. CHEST/LUNGS: Bilateral symmetrical expansion. Good air exchange. No rales, no rhonchi. CARDIOVASCULAR: PMI, not localized. S1, S2. No additional sounds. ABDOMEN: Normoactive bowel sounds. No tenderness. No organomegaly. No masses. EXTREMITIES: No cyanosis, no clubbing, no edema. 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 No neurological deficit could be appreciated. ASSESSMENT: Non-ST elevation myocardial infarction, hypertension, type 2 diabetes mellitus, hyperthyroidism. PLAN: The patient is for PCI as it is arranged by Dr. Arce in [facility]. We will continue current medications. We will give nebulizer treatment and mucolytic. Noemi Huertas MD MTDD
--- NOTE | 2017-06-20 22:11 | CP.PCM.PN ---
Subjective - Date & Time of Evaluation Date of Evaluation: 06/20/17 Time of Evaluation: 07:10 - Subjective Subjective: Patient for PCI Thursday No cardiac events noted Objective - Vital Signs/Intake and Output Vital Signs (last 24 hours): Temp Pulse Resp BP Pulse Ox 98.1 F 77 20 128/74 98 06/20/17 16:00 06/20/17 16:00 06/20/17 16:00 06/20/17 18:09 06/20/17 16:00 Intake and Output: 06/20/17 06/21/17 18:59 06:59 Intake Total 400 Output Total 1200 Balance -800 - Medications Medications: Current Medications Acetaminophen (Tylenol 325mg Tab) 650 mg PO Q6 PRN PRN Reason: Pain, moderate (4-7) Last Admin: 06/16/17 17:26 Dose: 650 mg Aspirin (Ecotrin) 81 mg PO DAILY [facility] Last Admin: 06/20/17 09:37 Dose: 81 mg Clopidogrel Bisulfate (Plavix) 75 mg PO DAILY [facility] Last Admin: 06/20/17 09:40 Dose: 75 mg Docusate Sodium (Colace) 100 mg PO TID [facility] Last Admin: 06/20/17 18:09 Dose: 100 mg Enoxaparin Sodium (Lovenox) 40 mg SC DAILY [facility] Last Admin: 06/20/17 09:37 Dose: 40 mg Famotidine (Pepcid) 20 mg PO DAILY [facility] Last Admin: 06/20/17 09:38 Dose: 20 mg Furosemide (Lasix) 40 mg IVP DAILY [facility] Last Admin: 06/20/17 18:09 Dose: 40 mg Glipizide (Glucotrol) 10 mg PO BID [facility] Last Admin: 06/20/17 18:09 Dose: 10 mg Guaifenesin/Dextromethorphan (Robitussin Dm) 10 ml PO Q4H PRN PRN Reason: Cough and congestion Last Admin: 06/20/17 09:38 Dose: 10 ml Insulin Human Regular (Novolin R) 0 unit SC [facility] PRN Reason: Protocol Last Admin: 06/20/17 22:02 Dose: Not Given Lisinopril (Zestril) 2.5 mg PO DAILY [facility] Last Admin: 06/20/17 09:43 Dose: 2.5 mg Magnesium Hydroxide (Milk Of Magnesia) 30 ml PO Q6H PRN PRN Reason: Constipation Last Admin: 06/19/17 17:21 Dose: 30 ml Methimazole (Tapazole) 10 mg PO DAILY [facility] Last Admin: 06/20/17 09:43 Dose: 10 mg Metoprolol Tartrate (Lopressor) 50 mg PO BID [facility] Last Admin: 06/20/17 18:09 Dose: 50 mg Rosuvastatin Calcium (Crestor) 10 mg PO HS [facility] Last Admin: 06/20/17 22:02 Dose: 10 mg - Labs Labs: 06/20/17 06:23 06/20/17 06:25 PT 13.2 SECONDS (9.7-12.2) H 06/14/17 16:14 INR 1.2 06/14/17 16:14
--- NOTE | 2017-06-20 23:19 | CARDCATH ---
PROCEDURE DATE: 06/17/2017 PROCEDURES: 1. Left heart catheterization. 2. Coronary angiogram and LV angiogram. 3. Saphenous vein graft angiogram. 4. Left internal mammary artery graft angiogram. 5. Radiological supervision and interpretation of the coronary angiogram, LV angiogram, graft angiograms. REFERRING PHYSICIAN: Noemi Huertas MD PERFORMING PHYSICIAN: Gianluca Arce MD CLINICAL INDICATIONS: 1. Chest pain. 2. Non-ST elevation myocardial infarction with abnormal troponin. 3. History of coronary artery disease, status post CABG x3 in 2013. 4. Hypertension. 5. Hyperlipidemia. 6. History of CVA. PROCEDURE: After informed consent, the patient was prepped and draped in the usual sterile fashion. A 2% lidocaine was given in the right groin for local anesthesia. Using micropuncture technique, a 6-Malagasy sheath was introduced into right common femoral artery. A JL4, 6-Malagasy diagnostic catheter was engaged into left main coronary artery. Contrast injected and left coronary angiogram was performed. Using JR4, 6-Malagasy diagnostic catheter, right coronary angiogram, saphenous venous graft to obtuse marginal 1, LV angiogram was performed. Using IM catheter, DELGADILLO graft angiogram was performed. Using multipurpose catheter, saphenous vein graft to right coronary. Using multipurpose catheter, RCA vein graft angiogram was performed. The patient tolerated the procedure well. FINDINGS: 1. Left main coronary artery is patent. 2. Mid LAD 100% occluded. 3. Left circumflex is small, mid left circumflex and obtuse marginal 2 branches has 90% stenosis. Obtuse marginal one is 100% occluded. 4. Right coronary artery is occluded, 100% distally. Mid right coronary artery has 99% stenosis. 5. DELGADILLO graft LAD is patent. 6. Saphenous vein graft to obtuse marginal 1 is patent. 7. Saphenous vein graft to PDA has a 60% to 70% stenosis distally. 8. Left ventricular ejection fraction approximately 60%. No wall motion abnormalities detected. EDP is 22. No gradient across the aortic valve. CONCLUSION: Cardiac cath finding as described above. The patient admitted with non-ST elevation myocardial infarction with troponin of 20. Consider intervening beaver left circumflex coronary artery and obtuse marginal 2. We will perform FFR of the saphenous vein graft to right coronary artery. If significant, we will intervene saphenous vein graft to right coronary artery. Gianluca Arce MD
[2017-06-21] MEDS: (Novolin R) Insulin Human Regular 100 units/ml vial SC SCH ×4 (08:16→22:41)
[2017-06-21] MEDS: Enoxaparin 40 mg Syringe SC SCH (09:45)
[2017-06-21] MEDS: guaiFENesin DM 200 mg-20 mg/10 ml UD PO PRN (10:06)
[2017-06-21] MEDS ORDERED: Albuterol-Ipratrop 3 mg / 0.5 (3 ml) UD INH STA (16:13)
[2017-06-21] MEDS ORDERED: Albuterol-Ipratrop 3 mg / 0.5 (3 ml) UD INH PRN (16:38)
--- NOTE | 2017-06-21 17:24 | CP.PCM.PN ---
Subjective - Date & Time of Evaluation Date of Evaluation: 06/21/17 Time of Evaluation: 13:45 - Subjective Subjective: Patient seen and evaluated Cough and some increased dyspnea as per the daughter No fever and chest pain Objective - Vital Signs/Intake and Output Vital Signs (last 24 hours): Temp Pulse Resp BP Pulse Ox 97.8 F 83 22 126/74 98 06/21/17 15:15 06/21/17 15:15 06/21/17 15:15 06/21/17 15:15 06/21/17 15:15 Intake and Output: 06/21/17 06/21/17 06:59 18:59 Output Total 150 Balance -150 - Medications Medications: Current Medications Acetaminophen (Tylenol 325mg Tab) 650 mg PO Q6 PRN PRN Reason: Pain, moderate (4-7) Last Admin: 06/16/17 17:26 Dose: 650 mg Albuterol/Ipratropium (Duoneb 3 Mg/0.5 Mg (3 Ml) Ud) 3 ml INH RQ6 [facility] Albuterol/Ipratropium (Duoneb 3 Mg/0.5 Mg (3 Ml) Ud) 3 ml INH RQ2 PRN PRN Reason: Shortness of Breath Aspirin (Ecotrin) 81 mg PO DAILY [facility] Last Admin: 06/21/17 09:46 Dose: 81 mg Clopidogrel Bisulfate (Plavix) 75 mg PO DAILY [facility] Last Admin: 06/21/17 09:44 Dose: 75 mg Docusate Sodium (Colace) 100 mg PO TID [facility] Last Admin: 06/21/17 14:01 Dose: 100 mg Enoxaparin Sodium (Lovenox) 40 mg SC DAILY [facility] Last Admin: 06/21/17 09:45 Dose: 40 mg Famotidine (Pepcid) 20 mg PO DAILY [facility] Last Admin: 06/21/17 09:44 Dose: 20 mg Furosemide (Lasix) 40 mg IVP BID [facility] Glipizide (Glucotrol) 10 mg PO BID [facility] Last Admin: 06/21/17 09:43 Dose: 10 mg Guaifenesin/Dextromethorphan (Robitussin Dm) 10 ml PO Q4H PRN PRN Reason: Cough and congestion Last Admin: 06/21/17 10:06 Dose: 10 ml Insulin Human Regular (Novolin R) 0 unit SC [facility] PRN Reason: Protocol Last Admin: 06/21/17 12:04 Dose: 4 unit Losartan Potassium (Cozaar) 25 mg PO DAILY [facility] Magnesium Hydroxide (Milk Of Magnesia) 30 ml PO Q6H PRN PRN Reason: Constipation Last Admin: 06/19/17 17:21 Dose: 30 ml Methimazole (Tapazole) 10 mg PO DAILY [facility] Last Admin: 06/21/17 09:44 Dose: 10 mg Metoprolol Tartrate (Lopressor) 50 mg PO BID [facility] Last Admin: 06/21/17 09:43 Dose: 50 mg Rosuvastatin Calcium (Crestor) 10 mg PO HS [facility] Last Admin: 06/20/17 22:02 Dose: 10 mg - Labs Labs: 06/20/17 06:23 06/20/17 06:25 PT 13.2 SECONDS (9.7-12.2) H 06/14/17 16:14 INR 1.2 06/14/17 16:14 - Constitutional Appears: Non-toxic - Head Exam Head Exam: ATRAUMATIC, NORMAL INSPECTION - Eye Exam Eye Exam: EOMI, PERRL Pupil Exam: NORMAL ACCOMODATION - ENT Exam ENT Exam: Mucous Membranes Moist - Respiratory Exam Respiratory Exam: Decreased Breath Sounds - Cardiovascular Exam Cardiovascular Exam: REGULAR RHYTHM, +S1, +S2 - GI/Abdominal Exam GI & Abdominal Exam: Soft, Normal Bowel Sounds - Extremities Exam Extremities Exam: Full ROM - Neurological Exam Neurological Exam: Alert, Awake, Oriented x3 - Psychiatric Exam Psychiatric exam: Normal Mood - Skin Skin Exam: Warm Assessment and Plan - Assessment and Plan (Free Text) Assessment: CAD s/p CABG Non ST SC Acute on Chronic diastolic CHF (HFpEF) Dyspnea and Cough Increase Lasix to 40 IV bid Change Lisinopril to Losartan 25 daily For PCI tomorrow
[2017-06-21] MEDS: Albuterol-Ipratrop 3 mg / 0.5 (3 ml) UD INH SCH (19:57)
[2017-06-21] MEDS: cefTRIAXone IV 1 gm in Dextros 50 ML IVPB SCH (20:08)
[2017-06-22] MEDS: Albuterol-Ipratrop 3 mg / 0.5 (3 ml) UD INH SCH ×4 (02:27→19:49)
[2017-06-22 07:23] LABS: HEMATOCRIT 33.9 % (35.0-51.0); MEAN CELL VOLUME 84.8 fL (80.0-94.0); MEAN CORPUSCULAR HEMOGLOBIN 28.5 pg (27.0-31.0); MEAN CORPUSCULAR HGB CONC 33.6 g/dL (33.0-37.0); MEAN PLATELET VOLUME 9.1 fL (7.2-11.7); RED CELL DISTRIBUTION WIDTH 14.2 % (11.5-14.5); WHITE BLOOD COUNT 8.5 K/uL (4.8-10.8)
[2017-06-22] MEDS: (Novolin R) Insulin Human Regular 100 units/ml vial SC SCH ×4 (07:30→21:34)
[2017-06-22 07:33] LABS: CHLORIDE 99 mmol/L (98-107); POTASSIUM 3.7 mmol/L (3.6-5.2); SODIUM 136 mmol/L (132-148)
[2017-06-22 07:35] LABS: BLOOD UREA NITROGEN 28 mg/dL (9-20); CARBON DIOXIDE 25 mmol/L (22-30); GFR AFRICAN-AMERICAN > 60
[2017-06-22 07:36] LABS: CALCIUM 8.1 mg/dl (8.6-10.4); GLUCOSE,RANDOM 216 mg/dL (75-110)
[2017-06-22 07:45] LABS: INR 1.3
[2017-06-22] MEDS: Enoxaparin 40 mg Syringe SC SCH (10:00)
--- NOTE | 2017-06-22 10:27 | CP.PCM.PN ---
Subjective - Date & Time of Evaluation Date of Evaluation: 06/22/17 Time of Evaluation: 10:21 - Subjective Subjective: Patient s/p L Cx intervention with Drug Eluting stent SVG to PDA (RCA) graft did not need intervention. Confirmed with repeat angio Plavix for 1 year ASA, Statins, B blockers and ARBs for life Mgt of Diastolic CHF OOB to chair after 12noon today Resume diet from lunch Check labs in am Orders written Objective - Vital Signs/Intake and Output Vital Signs (last 24 hours): Temp Pulse Resp BP Pulse Ox 99.0 F 82 20 120/74 94 L 06/21/17 23:30 06/21/17 23:30 06/21/17 23:30 06/21/17 23:30 06/21/17 23:30 Intake and Output: 06/22/17 06/22/17 06:59 18:59 Output Total 400 Balance -400 - Medications Medications: Current Medications Acetaminophen (Tylenol 325mg Tab) 650 mg PO Q6 PRN PRN Reason: Pain, moderate (4-7) Last Admin: 06/16/17 17:26 Dose: 650 mg Albuterol/Ipratropium (Duoneb 3 Mg/0.5 Mg (3 Ml) Ud) 3 ml INH RQ6 [facility] Last Admin: 06/22/17 08:25 Dose: Not Given Albuterol/Ipratropium (Duoneb 3 Mg/0.5 Mg (3 Ml) Ud) 3 ml INH RQ2 PRN PRN Reason: Shortness of Breath Aspirin (Ecotrin) 81 mg PO DAILY [facility] Last Admin: 06/21/17 09:46 Dose: 81 mg Clopidogrel Bisulfate (Plavix) 75 mg PO DAILY [facility] Last Admin: 06/21/17 09:44 Dose: 75 mg Docusate Sodium (Colace) 100 mg PO TID [facility] Last Admin: 06/21/17 18:33 Dose: 100 mg Enoxaparin Sodium (Lovenox) 40 mg SC DAILY [facility] Last Admin: 06/21/17 09:45 Dose: 40 mg Famotidine (Pepcid) 20 mg PO DAILY [facility] Last Admin: 06/21/17 09:44 Dose: 20 mg Furosemide (Lasix) 40 mg IVP BID [facility] Last Admin: 06/21/17 18:34 Dose: 40 mg Glipizide (Glucotrol) 10 mg PO BID [facility] Last Admin: 06/21/17 18:33 Dose: 10 mg Guaifenesin/Dextromethorphan (Robitussin Dm) 10 ml PO Q4H PRN PRN Reason: Cough and congestion Last Admin: 06/21/17 10:06 Dose: 10 ml Ceftriaxone Sodium (Rocephin Iv 1 Gm Duplex) 50 mls @ 100 mls/hr IVPB Q24H [facility] Last Admin: 06/21/17 20:08 Dose: 100 mls/hr Insulin Human Regular (Novolin R) 0 unit SC ACHS [facility] PRN Reason: Protocol Last Admin: 06/22/17 07:30 Dose: Not Given Losartan Potassium (Cozaar) 25 mg PO DAILY [facility] Magnesium Hydroxide (Milk Of Magnesia) 30 ml PO Q6H PRN PRN Reason: Constipation Last Admin: 06/19/17 17:21 Dose: 30 ml Methimazole (Tapazole) 10 mg PO DAILY [facility] Last Admin: 06/21/17 09:44 Dose: 10 mg Metoprolol Tartrate (Lopressor) 25 mg PO BID [facility] Rosuvastatin Calcium (Crestor) 10 mg PO HS [facility] Last Admin: 06/20/17 22:02 Dose: 10 mg - Labs Labs: 06/22/17 07:02 06/22/17 07:02 PT 14.4 SECONDS (9.7-12.2) H 06/22/17 07:02 INR 1.3 06/22/17 07:02
[2017-06-22] MEDS: cefTRIAXone IV 1 gm in Dextros 50 ML IVPB SCH (20:00)
[2017-06-23] MEDS: Albuterol-Ipratrop 3 mg / 0.5 (3 ml) UD INH SCH ×4 (01:09→19:40)
[2017-06-23 07:46] LABS: MEAN CELL VOLUME 84.5 fL (80.0-94.0); MEAN CORPUSCULAR HEMOGLOBIN 28.2 pg (27.0-31.0); MEAN CORPUSCULAR HGB CONC 33.4 g/dL (33.0-37.0); RED CELL DISTRIBUTION WIDTH 14.3 % (11.5-14.5); WHITE BLOOD COUNT 9.4 K/uL (4.8-10.8)
[2017-06-23] MEDS: (Novolin R) Insulin Human Regular 100 units/ml vial SC SCH ×4 (08:04→22:07)
[2017-06-23 08:10] LABS: CHLORIDE 100 mmol/L (98-107)
[2017-06-23 08:11] LABS: POTASSIUM 3.8 mmol/L (3.6-5.2); SODIUM 134 mmol/L (132-148)
[2017-06-23 08:13] LABS: GFR AFRICAN-AMERICAN > 60
[2017-06-23 08:14] LABS: BLOOD UREA NITROGEN 23 mg/dL (9-20); CALCIUM 8.4 mg/dl (8.6-10.4); CARBON DIOXIDE 27 mmol/L (22-30); GLUCOSE,RANDOM 208 mg/dL (75-110)
[2017-06-23 08:39] VITALS: RESP 20
--- NOTE | 2017-06-23 09:24 | PN ---
SUBJECTIVE: The patient is seen today post PCI done at [facility] by Dr. Arce. PHYSICAL EXAMINATION: VITAL SIGNS: Blood pressure 138/77, temperature 98.4, respiratory rate 20, and pulse 57. HEENT: Pupils equal, reactive to light. Normal-appearing mucosa of the conjunctivae, oropharyngeal and nasal membrane mucosa. NECK: Supple. No JVD. No carotid bruit. No lymph node. No thyromegaly. CHEST AND LUNGS: Bilateral symmetrical expansion. Good air exchange. No rales. Few scattered rhonchi. CARDIOVASCULAR: PMI not localized. S1 and S2. No additional sounds. ABDOMEN: Normoactive bowel sounds. No tenderness. No organomegaly. No masses. EXTREMITIES: No cyanosis, no clubbing, no edema. CENTRAL NERVOUS SYSTEM: Alert, awake, oriented x2. No neurological deficit could be appreciated. ASSESSMENT: Non-ST elevation myocardial infarction, status post percutaneous coronary intervention, hypertension, hypothyroidism. PLAN: Continue Plavix and aspirin, physical therapy and rehabilitation, if it would be recommended by physical therapy. Follow cardiology recommendations. Noemi Huertas MD
[2017-06-23] MEDS: Enoxaparin 40 mg Syringe SC SCH (10:41)
--- NOTE | 2017-06-23 18:34 | CP.PCM.PN ---
Subjective - Date & Time of Evaluation Date of Evaluation: 06/23/17 Time of Evaluation: 15:10 - Subjective Subjective: Patient seen and evaluated Comfortable no cardiac events continue all meds Objective - Vital Signs/Intake and Output Vital Signs (last 24 hours): Temp Pulse Resp BP Pulse Ox 98.5 F 86 20 114/64 95 06/23/17 15:15 06/23/17 15:30 06/23/17 15:15 06/23/17 17:54 06/23/17 15:15 Intake and Output: 06/23/17 06/23/17 06:59 18:59 Intake Total 210 400 Output Total 1550 1100 Balance -1340 -700 - Medications Medications: Current Medications Acetaminophen (Tylenol 325mg Tab) 650 mg PO Q6 PRN PRN Reason: Pain, moderate (4-7) Last Admin: 06/16/17 17:26 Dose: 650 mg Albuterol/Ipratropium (Duoneb 3 Mg/0.5 Mg (3 Ml) Ud) 3 ml INH RQ6 [facility] Last Admin: 06/23/17 13:27 Dose: 3 ml Albuterol/Ipratropium (Duoneb 3 Mg/0.5 Mg (3 Ml) Ud) 3 ml INH RQ2 PRN PRN Reason: Shortness of Breath Aspirin (Ecotrin) 81 mg PO DAILY [facility] Last Admin: 06/23/17 10:41 Dose: 81 mg Clopidogrel Bisulfate (Plavix) 75 mg PO DAILY [facility] Last Admin: 06/23/17 10:41 Dose: 75 mg Docusate Sodium (Colace) 100 mg PO TID [facility] Last Admin: 06/23/17 17:53 Dose: 100 mg Famotidine (Pepcid) 20 mg PO DAILY [facility] Last Admin: 06/23/17 10:41 Dose: 20 mg Furosemide (Lasix) 40 mg IVP BID [facility] Last Admin: 06/23/17 17:54 Dose: 40 mg Glipizide (Glucotrol) 10 mg PO BID [facility] Last Admin: 06/23/17 17:53 Dose: 10 mg Guaifenesin/Dextromethorphan (Robitussin Dm) 10 ml PO Q4H PRN PRN Reason: Cough and congestion Last Admin: 06/21/17 10:06 Dose: 10 ml Ceftriaxone Sodium (Rocephin Iv 1 Gm Duplex) 50 mls @ 100 mls/hr IVPB Q24H [facility] Last Admin: 06/22/17 20:00 Dose: 100 mls/hr Insulin Human Regular (Novolin R) 0 unit SC ACHS [facility] PRN Reason: Protocol Last Admin: 06/23/17 17:54 Dose: 4 unit Losartan Potassium (Cozaar) 25 mg PO DAILY [facility] Last Admin: 06/23/17 10:41 Dose: 25 mg Magnesium Hydroxide (Milk Of Magnesia) 30 ml PO Q6H PRN PRN Reason: Constipation Last Admin: 06/19/17 17:21 Dose: 30 ml Methimazole (Tapazole) 10 mg PO DAILY [facility] Last Admin: 06/23/17 10:41 Dose: 10 mg Metoprolol Tartrate (Lopressor) 25 mg PO BID [facility] Last Admin: 06/23/17 17:53 Dose: 25 mg Rosuvastatin Calcium (Crestor) 10 mg PO HS [facility] Last Admin: 06/22/17 21:45 Dose: 10 mg - Labs Labs: 06/23/17 07:21 06/23/17 07:21 PT 14.4 SECONDS (9.7-12.2) H 06/22/17 07:02 INR 1.3 06/22/17 07:02
[2017-06-23] MEDS: cefTRIAXone IV 1 gm in Dextros 50 ML IVPB SCH (19:52)
--- NOTE | 2017-06-24 | PN ---
DAILY PROGRESS NOTE DATE: 06/23/2017 SUBJECTIVE: The patient is seen today, 06/23/2017. He is not in any cardiopulmonary distress. OBJECTIVE: VITAL SIGNS: Blood pressure is 114/64, temperature 98.4, respiratory rate 20, and pulse 86. HEENT: Pupils equal, reactive to light. Normal-appearing mucosa of the conjunctivae, oropharynx, and nasal membrane mucosa. NECK: Supple. No JVD. No carotid bruit. No lymph node. No thyromegaly. CHEST AND LUNGS: Bilateral symmetrical expansion. Good air exchange. No rales, no rhonchi. CARDIOVASCULAR SYSTEM: PMI not localized. S1, S2. No additional sounds. ABDOMEN: Normoactive bowel sounds. No tenderness. No organomegaly. No masses. EXTREMITIES: No cyanosis. No clubbing. No edema. PANEL EDGE PAINTER: Alert, awake, oriented x2 and the patient moves all extremities equally. ASSESSMENT: 1. Coronary artery disease, status post percutaneous coronary intervention. 2. Non-ST elevation myocardial infarction. 3. Hypertension. 4. Type 2 diabetes mellitus. 5. Hyperthyroidism. PLAN: We will discontinue Soares catheter. Continue current medications, physical therapy. Plan to discharge to subacute rehabilitation. oNemi Huertas MD
[2017-06-24] MEDS: Albuterol-Ipratrop 3 mg / 0.5 (3 ml) UD INH SCH ×3 (01:57→13:24)
[2017-06-24] MEDS: (Novolin R) Insulin Human Regular 100 units/ml vial SC SCH ×2 (08:15→12:05)
[2017-06-24 08:39] VITALS: TEMP 98.2; O2SAT 95
[2017-06-24 10:13] VITALS: PULSE 66
[2017-06-24 11:39] VITALS: BP 129/90
[2017-06-24] MEDS: guaiFENesin DM 200 mg-20 mg/10 ml UD PO PRN (11:39)
--- NOTE | 2017-06-24 13:34 | CP.PCM.PN ---
Subjective - Date & Time of Evaluation Date of Evaluation: 06/24/17 Time of Evaluation: 13:32 - Subjective Subjective: PT CLEARED FOR D/C TO [facility] TODAY PER DR. CEDILLO---WILL BE PLACED UNDER THE SERVICE OF DR. CEDILLO WHILE AT [facility]. PT CLEARED BY DR. LARSEN TODAY WELL. ASA, BETA BLOCKERS, STATIN, ARB, PLAVIX TO BE CONTINUED PER DR. LARSEN'S RECOMMENDATIONS. WILL CONTINUE PO ABX (AUGMENTIN 875 MG PO BID) X7 DAYS PER DR. CEDILLO. TO ARRANGE TRANSPORTATION TO [facility]. NO FURTHER ORDERS. Objective - Vital Signs/Intake and Output Vital Signs (last 24 hours): Temp Pulse Resp BP Pulse Ox 98.2 F 66 20 129/90 95 06/24/17 07:00 06/24/17 07:45 06/24/17 07:00 06/24/17 11:00 06/24/17 07:00 Intake and Output: 06/24/17 06/24/17 06:59 18:59 Intake Total 500 Output Total 700 Balance -200 - Medications Medications: Current Medications Acetaminophen (Tylenol 325mg Tab) 650 mg PO Q6 PRN PRN Reason: Pain, moderate (4-7) Last Admin: 06/16/17 17:26 Dose: 650 mg Albuterol/Ipratropium (Duoneb 3 Mg/0.5 Mg (3 Ml) Ud) 3 ml INH RQ6 [facility] Last Admin: 06/24/17 13:24 Dose: 3 ml Albuterol/Ipratropium (Duoneb 3 Mg/0.5 Mg (3 Ml) Ud) 3 ml INH RQ2 PRN PRN Reason: Shortness of Breath Aspirin (Ecotrin) 81 mg PO DAILY [facility] Last Admin: 06/24/17 11:00 Dose: 81 mg Clopidogrel Bisulfate (Plavix) 75 mg PO DAILY [facility] Last Admin: 06/24/17 11:00 Dose: 75 mg Docusate Sodium (Colace) 100 mg PO TID [facility] Last Admin: 06/24/17 11:00 Dose: 100 mg Famotidine (Pepcid) 20 mg PO DAILY [facility] Last Admin: 06/24/17 11:00 Dose: 20 mg Furosemide (Lasix) 40 mg IVP BID [facility] Last Admin: 06/24/17 11:00 Dose: 40 mg Glipizide (Glucotrol) 10 mg PO BID [facility] Last Admin: 06/24/17 11:00 Dose: 10 mg Guaifenesin/Dextromethorphan (Robitussin Dm) 10 ml PO Q4H PRN PRN Reason: Cough and congestion Last Admin: 06/24/17 11:39 Dose: 10 ml Ceftriaxone Sodium (Rocephin Iv 1 Gm Duplex) 50 mls @ 100 mls/hr IVPB Q24H [facility] Last Admin: 06/23/17 19:52 Dose: 100 mls/hr Insulin Human Regular (Novolin R) 0 unit SC ACHS [facility] PRN Reason: Protocol Last Admin: 06/24/17 12:05 Dose: 8 unit Losartan Potassium (Cozaar) 25 mg PO DAILY [facility] Last Admin: 06/24/17 11:00 Dose: 25 mg Magnesium Hydroxide (Milk Of Magnesia) 30 ml PO Q6H PRN PRN Reason: Constipation Last Admin: 06/19/17 17:21 Dose: 30 ml Methimazole (Tapazole) 10 mg PO DAILY [facility] Last Admin: 06/24/17 11:00 Dose: 10 mg Metoprolol Tartrate (Lopressor) 25 mg PO BID [facility] Last Admin: 06/24/17 11:00 Dose: 25 mg Rosuvastatin Calcium (Crestor) 10 mg PO HS [facility] Last Admin: 06/23/17 22:06 Dose: 10 mg - Labs Labs: 06/23/17 07:21 06/23/17 07:21 PT 14.4 SECONDS (9.7-12.2) H 06/22/17 07:02 INR 1.3 06/22/17 07:02
--- NOTE | 2017-06-25 16:13 | DS ---
REASON FOR ADMISSION: The patient is a 76-year-old male with history of multiple medical problems, was admitted for non-ST elevated myocardial infarction. COURSE OF HOSPITALIZATION: The patient was initially admitted to Intensive Care Unit. The patient had a cardiology consultation done by Dr. Arce. Due to patient's fluctuation of mental status, the patient eventually had a cardiac catheterization and followed by PCI that was done in [facility]. The patient was transferred back to [facility] and he was started on physical therapy and discharged to subacute rehabilitation at [facility] in stable condition. FINAL DIAGNOSIS: [id number] myocardial infarction; type 2 diabetes mellitus, uncontrolled; hypothyroidism; hypertension; coronary artery disease status post coronary artery bypass graft and PCI. Noemi Huertas MD
== END 2017-06-24 16:10 | DRG 280 ==
LOC: C.ER 15:34 → C.9E 16:49 → C.9I 22:26 → C.6T 06-20 15:02
PROVIDERS: ADMIT Internal Medicine; ATTEND Internal Medicine
PROC: 4A023N7 Measurement of Cardiac Sampling and Pressure, Left Heart, Percutaneous Approach (ICD-10-PCS; principal; 2017-06-20)
PROC: B2151ZZ Fluoroscopy of Left Heart using Low Osmolar Contrast (ICD-10-PCS; 2017-06-20)
PROC: B2131ZZ Fluoroscopy of Multiple Coronary Artery Bypass Grafts using Low Osmolar Contrast (ICD-10-PCS; 2017-06-20)
PROC: B2111ZZ Fluoroscopy of Multiple Coronary Arteries using Low Osmolar Contrast (ICD-10-PCS; 2017-06-20)
DX: I21.4 Non-ST elevation (NSTEMI) myocardial infarction (principal); I50.33 Acute on chronic diastolic (congestive) heart failure; I25.82 Chronic total occlusion of coronary artery; E11.65 Type 2 diabetes mellitus with hyperglycemia; I25.810 Atherosclerosis of coronary artery bypass graft(s) without angina pectoris; I11.0 Hypertensive heart disease with heart failure; I25.10 Atherosclerotic heart disease of native coronary artery without angina pectoris; E78.00 Pure hypercholesterolemia, unspecified; E78.5 Hyperlipidemia, unspecified; E89.0 Postprocedural hypothyroidism; I44.30 Unspecified atrioventricular block; I70.0 Atherosclerosis of aorta; K59.00 Constipation, unspecified; W19.XXXA Unspecified fall, initial encounter; R29.6 Repeated falls; I25.2 Old myocardial infarction; Z79.84 Long term (current) use of oral hypoglycemic drugs; Z79.899 Other long term (current) drug therapy; Z91.19 Patient's noncompliance with other medical treatment and regimen; Z98.61 Coronary angioplasty status; Z95.1 Presence of aortocoronary bypass graft

== ENCOUNTER 2018-01-09 12:25 | Inpatient (IN) | payer MEDICARE, MEDICAID ==
[2018-01-09 12:25] VITALS: BMI 36.6
[2018-01-09 13:05] LABS: BASO # 0.1 K/uL (0.0-0.2); BASO % 0.8 % (0.0-2.0); EOS # 0.3 K/uL (0.0-0.7); HEMOGLOBIN 12.6 g/dL (12.0-18.0); LYMPH # 1.1 K/uL (1.0-4.3); LYMPH % 13.1 % (20.0-40.0); MEAN CELL VOLUME 84.3 fL (80.0-94.0); MEAN CORPUSCULAR HEMOGLOBIN 28.9 pg (27.0-31.0); MEAN CORPUSCULAR HGB CONC 34.3 g/dL (33.0-37.0); MEAN PLATELET VOLUME 9.2 fL (7.2-11.7); MONO # 0.7 K/uL (0.0-0.8); NEUT # 6.3 K/uL (1.8-7.0); NEUT % 75.1 % (50.0-75.0); NRBC % 0.2 % (0.0-2.0); RBC 4.36 Mil/uL (4.40-5.90); RED CELL DISTRIBUTION WIDTH 14.4 % (11.5-14.5); WHITE BLOOD COUNT 8.4 K/uL (4.8-10.8)
--- NOTE | 2018-01-09 13:05 | C.PDOC ---
History Of Present Illness 77 y/o [place] male with a history of CABG, diabetes, hypertension, myocardial infarction, hypothyroidism, and coronary disease presents to the ED near syncope. Patient states he woke up this morning had cereal then drove to the store. Upon leaving the store he states he doesn't know why but he started walking fast, perhaps he was stumbling forwards. . While walking fast he fell but denies tripping. EMS was called and reports he was red in the face with diaphoresis, . Denies any SOB, headache, chest pain, and abdominal pain. Of note, patient had a CABG many years ago and 5 months ago had a stent placed by Dr. Arce. As per EMS witnesses claimed patient syncopized. PMD: Dr. Huertas [employer]: Dr. Arce Time Seen by Provider: 01/09/18 12:34 Chief Complaint (Nursing): Syncope History Per: Patient History/Exam Limitations: no limitations Onset/Duration Of Symptoms: Mins Current Symptoms Are (Timing): Still Present Recent travel outside of the [place]: No Past Medical History Reviewed: Historical Data, Nursing Documentation, Vital Signs Vital Signs: Last Vital Signs Temp 98.4 F 01/09/18 12:32 Pulse 80 01/09/18 12:32 Resp 18 01/09/18 12:32 BP 164/64 H 01/09/18 12:32 Pulse Ox 97 01/09/18 14:32 - Medical History PMH: CAD, Diabetes, HTN, Hypercholesterolemia, Hyperlipidemia, Hyperthyroidism, Hypothyroidism Denies: Chronic Kidney Disease Surgical History: CABG (triple vessel 2013) - [facility] Procedures APPLICATION OF SPLINT (09/02/14) CORONAR ARTERIOGR-2 CATH (11/06/13) FLUOROSCOPY OF LEFT HEART USING LOW OSMOLAR CONTRAST (06/14/17) FLUOROSCOPY OF MULT COR A GRAFT USING L OSM CONTRAST (06/14/17) FLUOROSCOPY OF MULT COR ART USING L OSM CONTRAST (06/14/17) LEFT HEART CARDIAC CATH (11/06/13) LT HEART ANGIOCARDIOGRAM (11/06/13) MEASURE OF CARDIAC SAMPL & PRESSURE, L HEART, PERC APPROACH (06/14/17) Family History: States: Unknown Family Hx - Social History Hx Tobacco Use: No Hx Alcohol Use: No Hx Substance Use: No - Immunization History Hx Tetanus Toxoid Vaccination: No Hx Influenza Vaccination: No Hx Pneumococcal Vaccination: No Review Of Systems Except As Marked, All Systems Reviewed And Found Negative. Constitutional: Positive for: Sweats. Negative for: Other (LOC or tripping) Cardiovascular: Negative for: Chest Pain Respiratory: Negative for: Shortness of Breath Gastrointestinal: Negative for: Abdominal Pain Skin: Positive for: Other (redness in the face) Neurological: Positive for: Other (near syncope). Negative for: Headache Physical Exam - Physical Exam Appears: Non-toxic, No Acute Distress Skin: Diaphoretic, Other (chronic skin discoloration) Head: Atraumatic Eye(s): bilateral: Normal Inspection, PERRL, EOMI Respiratory: Normal Breath Sounds Gastrointestinal/Abdominal: Normal Exam, No Tenderness, Distention (slightly firm) Back: Normal Inspection Extremity: Normal ROM, Pedal Edema (+4 bilaterally) ED Course And Treatment - Laboratory Results Result Diagrams: 01/09/18 12:56 01/09/18 12:56 O2 Sat by Pulse Oximetry: 97 (RA) Pulse Ox Interpretation: Normal Medical Decision Making Medical Decision Making: Time: 12:32 Impression: Syncope, AK, and PE Initial Plan: * CAT Scan Agio Chest * EKG Dr. Huertas not answering. Spoke with Dr. Arce. He will consult. Spoke with hospitalist service for admission. Scribe Attestation: Documented by Cayden Myles acting as a scribe Shara Wilson MD. Scribroyce Attestation: All medical record entries made by the Scribe were at my direction and personally dictated by me. I have reviewed the chart and agree that the record accurately reflects my personal performance of the history, physical exam, medical decision making, and the department course for this patient. I have also personally directed, reviewed, and agree with the discharge instructions and disposition. Disposition Discussed With : Gianluca Arce Doctor Will See Patient In The: Hospital Counseled Patient/Family Regarding: Studies Performed - Disposition Disposition: HOSPITALIZED Disposition Time: 14:31 Condition: GUARDED Forms: [facility] (Iranian) - Clinical Impression Clinical Impression: Syncope, CAD (coronary artery disease) Decision To Admit - Pt Status Changed To: Hospital Disposition Of: Inpatient - Admit Certification Admit to Inpatient:: After my assessment, the patient will require hospitalization for at least two midnights. This is because of the severity of symptoms shown, intensity of services needed, and/or the medical risk in this patient being treated as an outpatient. - InPatient: Physician Admission Certification: I certify that this patient requires 2 or more midnights of care for the following reason:: syncopy , s/p CABG, CAD - . Bed Request Type: Telemetry Patient Diagnosis: Syncope, CAD (coronary artery disease)
[2018-01-09 13:22] LABS: ALB/GLOB RATIO 1.2 (1.0-2.1); ALBUMIN 4.2 g/dL (3.5-5.0); ALT/SGPT 41 U/L (21-72); AST/SGOT 36 U/L (17-59); BLOOD UREA NITROGEN 16 mg/dL (9-20); CALCIUM 9.7 mg/dl (8.6-10.4); GFR AFRICAN-AMERICAN > 60; GFR NON-AFRICAN AMERICAN > 60
[2018-01-09 13:31] LABS: B-TYPE NATRIURETIC PEPTIDE 431 pg/mL (0-900)
--- NOTE | 2018-01-09 13:39 | RAD ---
Chest x-ray single frontal view History: Chest pain. Comparison: None available. Findings Biapical pleural thickening with upper lobe granulomatous changes. Mild venous congestion. Right hilar prominence. Status post median sternotomy. Enlarged ectatic aorta. Cardiomegaly. Degenerative changes in the spine and shoulders. Impression: Biapical pleural thickening with upper lobe granulomatous changes. Mild venous congestion. Right hilar prominence. Status post median sternotomy. Enlarged ectatic aorta. Cardiomegaly.
[2018-01-09] MEDS ORDERED: Iodixanol 320 MG/ML 100 ML BOTTLE IV ONE (14:05)
--- NOTE | 2018-01-09 15:09 | CT ---
PROCEDURE: CT HEAD WITHOUT CONTRAST. HISTORY: syncope COMPARISON: 06/15/2017. TECHNIQUE: Axial computed tomography images were obtained through the head/brain without intravenous contrast. Radiation dose: Total exam DLP = 992 mGy-cm. This CT exam was performed using one or more of the following dose reduction techniques: Automated exposure control, adjustment of the mA and/or kV according to patient size, and/or use of iterative reconstruction technique. FINDINGS: HEMORRHAGE: No intracranial hemorrhage. BRAIN: No mass effect or edema. Scattered focal lucencies in the subcortical and periventricular white matter suggestive for chronic microvascular ischemic change. . Dense bilateral basal ganglia calcifications. Generalized atrophy. Punctate lacunar infarct in the right cerebellum. VENTRICLES: Prominent. CALVARIUM: Unremarkable. PARANASAL SINUSES: Unremarkable as visualized. No significant inflammatory changes. MASTOID AIR CELLS: Partial opacification of the left mastoid air cells. OTHER FINDINGS: Intracranial arterial calcifications. IMPRESSION: No acute intracranial abnormality. Chronic microvascular ischemic changes. Dense bilateral basal ganglia calcifications. Atrophy with prominent ventricles. Partial opacification of the left mastoid air cells. If symptoms persists, consider correlation with MRI.
--- NOTE | 2018-01-09 15:18 | CT ---
PROCEDURE: CT Chest with contrast (Pulmonary Angiogram) HISTORY: syncope, elevated D Dimer COMPARISON: None available. TECHNIQUE: Axial computed tomography images were obtained of the chest in the pulmonary arterial phase of enhancement. Coronal and sagittal reformatted images were created and reviewed. Intravenous contrast dose: 100 cc Visipaque intravenous contrast. Radiation dose: Total exam DLP = 604 mGy-cm. This CT exam was performed using one or more of the following dose reduction techniques: Automated exposure control, adjustment of the mA and/or kV according to patient size, and/or use of iterative reconstruction technique. FINDINGS: PULMONARY ARTERIES: No evidence of gross central pulmonary embolism. More limited evaluation of the segmental and subsegmental branches given motion artifact. AORTA: Calcification and plaque within the aorta. Prominence of the ascending aorta measuring up to 3.7 centimeters. Descending aorta measures 3.3 centimeters. LUNGS: Right lung: Apical pleural thickening. Scattered atelectatic changes throughout the right lung. Hyperinflation suggestive for COPD and or emphysematous changes. Linear atelectasis within the medial aspect of the left upper lobe. Left lung: Atelectasis at the left lung apex. PLEURAL SPACES: Unremarkable. No effusion or pneuomothorax. HEART: Extensive coronary calcifications. LYMPH NODES: No lymphadenopathy. BONES, CHEST WALL: Degenerative changes in the spine. OTHER FINDINGS: Enlarged multinodular goiter thyroid gland with calcifications. Correlation with thyroid ultrasound may be helpful. Prominent nodular thickening of the bilateral adrenal glands. 3.1 centimeter low-attenuation nodular density in the right adrenal gland demonstrating a Hounsfield unit attenuation of 13 with an additional 2.3 centimeter low-attenuation lesion within the left thyroid gland demonstrating a Hounsfield unit attenuation of 8. Fatty atrophy of the pancreas. Small hiatal hernia. IMPRESSION: No evidence of gross central pulmonary embolism. More limited evaluation of the segmental and subsegmental branches given motion artifact. Calcification and plaque within the aorta. Prominence of the ascending aorta measuring up to 3.7 centimeters. Descending aorta measures 3.3 centimeters. Atelectasis in the lung rodriguez. Extensive coronary calcifications. Enlarged multinodular goiter thyroid gland with calcifications. Correlation with thyroid ultrasound may be helpful. Prominent nodular thickening of the bilateral adrenal glands. 3.1 centimeter low-attenuation nodular density in the right adrenal gland demonstrating a Hounsfield unit attenuation of 13 with an additional 2.3 centimeter low-attenuation lesion within the left thyroid gland demonstrating a Hounsfield unit attenuation of 8. Additional findings as above.
[2018-01-09] MEDS: (Novolog) Insulin Aspart, Recombinant 100 u/ml 10 ml vial SC SCH (21:38)
--- NOTE | 2018-01-10 02:40 | HP ---
HISTORY OF PRESENT ILLNESS: This is a 77-year-old male with history of multiple medical problems, presented to emergency room after a fall/syncope. The patient states that he was coming out from a supermarket with a shopping cart. The patient started to feel that his gait steps were getting fast and then he lost his balance, and he fell and landed on the right elbow. Patient denies to have any right elbow pain or other pain anywhere in his body. The patient states that there was a person passing by who had witnessed the fall and walked with him to his car which was about 10 feet away. That person called the EMS who contacted the daughter and brought the patient to emergency room. The patient denied that he lost consciousness. He states that he was fully aware that he was about to fall, and he tried to support himself by the shopping cart which rolled away from him, and he landed on the floor with a very mild abrasion to the right elbow. The patient's daughter is at the bedside at the time of this examination and states that patient has this rapid shuffling gait that occurs occasionally. The patient is refusing to use any cane or any support during walk. REVIEW OF SYSTEMS: Other review of system is negative. ALLERGIES: NO KNOWN ALLERGY. MEDICATIONS: As per MAR. PAST MEDICAL HISTORY: Coronary artery disease, status post coronary artery bypass graft; hypertension; type 2 diabetes mellitus. SOCIAL HISTORY: No history of smoking, EtOH or substance abuse. FAMILY HISTORY: Noncontributory. PHYSICAL EXAMINATION: GENERAL: The patient is in bed comfortable, not in any cardiopulmonary distress. VITAL SIGNS: Blood pressure 134/81, temperature 97.6, respiratory rate 20, and pulse 72. HEENT: Pupils are equal and reactive to light. Normal-appearing mucosa of the conjunctivae, oropharynx and nasal membrane mucosa. NECK: Supple. No JVD. No carotid bruit. No lymph node. No thyromegaly. CHEST AND LUNGS: Bilateral symmetrical expansion. Good air exchange. No rales. No rhonchi. CARDIOVASCULAR SYSTEM: PMI not localized. S1, S2. No additional sounds. ABDOMEN: Normoactive bowel sounds. No tenderness. No organomegaly. No masses. EXTREMITIES: No cyanosis, no clubbing, no edema. REPAIR SERVICE DISPATCHER: Alert, awake, oriented x3. No neurological deficit could be appreciated. ASSESSMENT: Fall with mild abrasion to the right elbow, unsteady gait, rule out early Parkinson's disease, hypertension, type 2 diabetes mellitus. PLAN: We will do neuro check every 4 hours. Cardiology was consulted by the emergency room physician. We will call for neuro consult also for evaluation. We will resume the patient's home medications and do Accu-Cheks four times a day with insulin coverage. [facility] MD Aleksandar
--- NOTE | 2018-01-10 07:56 | CP.PCM.CON ---
History of Present Illness - History of Present Illness History of Present Illness: CC: Near syncope 77 y/o Tel[place] male with a history of CABG, diabetes, hypertension, myocardial infarction, hypothyroidism, and coronary disease presents to the ED near syncope. Patient states he woke up this morning had cereal then drove to the store. Upon leaving the store he states he doesn't know why but he started walking fast, perhaps he was stumbling forwards. . While walking fast he fell but denies tripping. EMS was called and reports he was red in the face with diaphoresis, . Denies any SOB, headache, chest pain, and abdominal pain. Of note, patient had a CABG many years ago and 5 months ago had a stent placed by me. As per EMS witnesses claimed patient syncopized. PMD: Dr. Huertas Chief Complaint (Nursing): Syncope History Per: Patient History/Exam Limitations: no limitations Onset/Duration Of Symptoms: Mins Current Symptoms Are (Timing): Still Present Recent travel outside of the [place]: No - Medical History PMH: CAD, Diabetes, HTN, Hypercholesterolemia, Hyperlipidemia, Hyperthyroidism, Hypothyroidism Denies: Chronic Kidney Disease Surgical History: CABG (triple vessel 2013) - [facility] Procedures APPLICATION OF SPLINT (09/02/14) CORONAR ARTERIOGR-2 CATH (11/06/13) FLUOROSCOPY OF LEFT HEART USING LOW OSMOLAR CONTRAST (06/14/17) FLUOROSCOPY OF MULT COR A GRAFT USING L OSM CONTRAST (06/14/17) FLUOROSCOPY OF MULT COR ART USING L OSM CONTRAST (06/14/17) LEFT HEART CARDIAC CATH (11/06/13) LT HEART ANGIOCARDIOGRAM (11/06/13) MEASURE OF CARDIAC SAMPL & PRESSURE, L HEART, PERC APPROACH (06/14/17) Family History: States: Unknown Family Hx - Social History Hx Tobacco Use: No Hx Alcohol Use: No Hx Substance Use: No - Immunization History Hx Tetanus Toxoid Vaccination: No Hx Influenza Vaccination: No Hx Pneumococcal Vaccination: No Review Of Systems Except As Marked, All Systems Reviewed And Found Negative. Constitutional: Positive for: Sweats. Negative for: Other (LOC or tripping) Cardiovascular: Negative for: Chest Pain Respiratory: Negative for: Shortness of Breath Gastrointestinal: Negative for: Abdominal Pain Skin: Positive for: Other (redness in the face) Neurological: Positive for: Other (near syncope). Negative for: Headache Physical Exam - Physical Exam Appears: Non-toxic, No Acute Distress Skin: Diaphoretic, Other (chronic skin discoloration) Head: Atraumatic Eye(s): bilateral: Normal Inspection, PERRL, EOMI Respiratory: Normal Breath Sounds Gastrointestinal/Abdominal: Normal Exam, No Tenderness, Distention (slightly firm) Back: Normal Inspection Extremity: Normal ROM, Pedal Edema (+4 bilaterally) Past Patient History - Past Medical History & Family History Past Medical History?: Yes - Past Social History Smoking Status: Never Smoked - CARDIAC Hx Cardiac Disorders: Yes Hx Heart Attack: Yes Hx Hypercholesterolemia: Yes Hx Hypertension: Yes - PULMONARY Hx Respiratory Disorders: No - NEUROLOGICAL Hx Neurological Disorder: No - HEENT Hx HEENT Problems: No - RENAL Hx Chronic Kidney Disease: No - ENDOCRINE/METABOLIC Hx Hyperthyroidism: Yes Hx Hypothyroidism: Yes - HEMATOLOGICAL/ONCOLOGICAL Hx Blood Disorders: No - INTEGUMENTARY Hx Dermatological Problems: No - MUSCULOSKELETAL/RHEUMATOLOGICAL Hx Musculoskeletal Disorders: Yes Hx Falls: Yes - GASTROINTESTINAL Hx Gastrointestinal Disorders: No - GENITOURINARY/GYNECOLOGICAL Hx Genitourinary Disorders: No - PSYCHIATRIC Hx Psychophysiologic Disorder: No Hx Substance Use: No - SURGICAL HISTORY Hx Surgeries: Yes Hx Coronary Artery Bypass Graft: Yes (triple vessel 2014) - ANESTHESIA Hx Anesthesia: Yes Hx Anesthesia Reactions: No Hx Malignant Hyperthermia: No Meds Allergies/Adverse Reactions: Allergies Allergy/AdvReac Type Severity Reaction Status Date / Time No Known Allergies Allergy Verified 09/05/14 16:16 - Medications Medications: Current Medications Aspirin (Ecotrin) 81 mg PO DAILY [facility] Clopidogrel Bisulfate (Plavix) 75 mg PO DAILY [facility] Docusate Sodium (Colace) 100 mg PO DAILY [facility] Ergocalciferol (Drisdol 50,000 Intl Units Cap) 1 cap PO QWK [facility] Famotidine (Pepcid) 20 mg PO BID [facility] Last Admin: 01/09/18 17:38 Dose: 20 mg Glipizide (Glucotrol) 10 mg PO BIDAC [facility] Last Admin: 01/09/18 17:38 Dose: 10 mg Insulin Aspart (Novolog) 0 unit SC ACHS [facility] PRN Reason: Protocol Last Admin: 01/09/18 21:38 Dose: Not Given Losartan Potassium (Cozaar) 25 mg PO DAILY [facility] Metformin HCl (Glucophage) 1,000 mg PO BIDCC [facility] Methimazole (Tapazole) 10 mg PO DAILY [facility] Metoprolol Tartrate (Lopressor) 50 mg PO BID [facility] Last Admin: 01/09/18 17:38 Dose: 50 mg Rosuvastatin Calcium (Crestor) 10 mg PO DAILY [facility] Sitagliptin Phosphate (Januvia) 50 mg PO DAILY [facility] Results - Vital Signs Recent Vital Signs: Last Vital Signs Temp 98.1 F 01/10/18 04:33 Pulse 83 01/10/18 04:33 Resp 20 01/10/18 04:33 BP 147/80 01/10/18 04:33 Pulse Ox 96 01/10/18 04:33 - Labs Result Diagrams: 01/09/18 12:56 01/09/18 12:56 Labs: Laboratory Results - last 24 hr 01/09/18 01/09/18 01/09/18 12:31 12:56 12:56 WBC 8.4 RBC 4.36 L Hgb 12.6 Hct 36.7 MCV 84.3 MCH 28.9 MCHC 34.3 RDW 14.4 Plt Count 203 MPV 9.2 Neut % (Auto) 75.1 H Lymph % (Auto) 13.1 L [place] % (Auto) 8.0 Eos % (Auto) 3.0 Baso % (Auto) 0.8 Neut # (Auto) 6.3 Lymph # (Auto) 1.1 [place] # (Auto) 0.7 Eos # (Auto) 0.3 Baso # (Auto) 0.1 D-Dimer, Quantitative 337 H Sodium Potassium Chloride Carbon Dioxide Anion Gap BUN Creatinine Est GFR ( Amer) Est GFR (Non-Af Amer) POC Glucose (mg/dL) 225 H Random Glucose Calcium Total Bilirubin AST ALT Alkaline Phosphatase Troponin I NT-Pro-B Natriuret Pep Total Protein Albumin Globulin Albumin/Globulin Ratio 01/09/18 01/09/18 01/09/18 12:56 16:21 20:51 WBC RBC Hgb Hct MCV MCH MCHC RDW Plt Count MPV Neut % (Auto) Lymph % (Auto) [place] % (Auto) Eos % (Auto) Baso % (Auto) Neut # (Auto) Lymph # (Auto) [place] # (Auto) Eos # (Auto) Baso # (Auto) D-Dimer, Quantitative Sodium 142 Potassium 4.5 Chloride 101 Carbon Dioxide 28 Anion Gap 17 BUN 16 Creatinine 1.0 Est GFR ( Amer) > 60 Est GFR (Non-Af Amer) > 60 POC Glucose (mg/dL) 163 H 160 H Random Glucose 221 H Calcium 9.7 Total Bilirubin 0.8 AST 36 ALT 41 Alkaline Phosphatase 69 Troponin I < 0.0120 NT-Pro-B Natriuret Pep 431 Total Protein 7.6 Albumin 4.2 Globulin 3.4 Albumin/Globulin Ratio 1.2 Assessment & Plan - Assessment and Plan (Free Text) Assessment: 77 Male admitted for syncope Etiology ??? Check ECHO/Carotids Trop so far normal Neuro eval in progress DM 2 HTN CAD s/p PCI Continue all meds
[2018-01-10] MEDS: (Novolog) Insulin Aspart, Recombinant 100 u/ml 10 ml vial SC SCH ×4 (08:00→21:46)
--- NOTE | 2018-01-10 15:57 | CP.PCM.CON ---
History of Present Illness - History of Present Illness History of Present Illness: 77 yr old male who was walking fast and fell sustaining no head injury but has a strong cardiac history of prior stents, CABG, diabetes, hypertension, myocardial infarction, hypothyroidism, and coronary disease. He woke up earlier this morning and drove to the store to get cereal, and then fell while walking. NO chest pain, no diaphoresis, but witness said he syncopized. PMD: Dr. Huertas Chief Complaint (Nursing): Syncope History Per: Patient History/Exam Limitations: no limitations Onset/Duration Of Symptoms: Mins Current Symptoms Are (Timing): Still Present Recent travel outside of the [place]: No - Medical History PMH: CAD, Diabetes, HTN, Hypercholesterolemia, Hyperlipidemia, Hyperthyroidism, Hypothyroidism Denies: Chronic Kidney Disease Surgical History: CABG (triple vessel 2013) on exam: is significant for some cogwheel rigidity and bradykinesia, although mild. Gait was borderline small steps. Rest of neuro exam is normal. Past Patient History - Past Medical History & Family History Past Medical History?: Yes - Past Social History Smoking Status: Never Smoked - CARDIAC Hx Cardiac Disorders: Yes Hx Heart Attack: Yes Hx Hypercholesterolemia: Yes Hx Hypertension: Yes - PULMONARY Hx Respiratory Disorders: No - NEUROLOGICAL Hx Neurological Disorder: No - HEENT Hx HEENT Problems: No - RENAL Hx Chronic Kidney Disease: No - ENDOCRINE/METABOLIC Hx Hyperthyroidism: Yes Hx Hypothyroidism: Yes - HEMATOLOGICAL/ONCOLOGICAL Hx Blood Disorders: No - INTEGUMENTARY Hx Dermatological Problems: No - MUSCULOSKELETAL/RHEUMATOLOGICAL Hx Musculoskeletal Disorders: Yes Hx Falls: Yes - GASTROINTESTINAL Hx Gastrointestinal Disorders: No - GENITOURINARY/GYNECOLOGICAL Hx Genitourinary Disorders: No - PSYCHIATRIC Hx Psychophysiologic Disorder: No Hx Substance Use: No - SURGICAL HISTORY Hx Surgeries: Yes Hx Coronary Artery Bypass Graft: Yes (triple vessel 2013) - ANESTHESIA Hx Anesthesia: Yes Hx Anesthesia Reactions: No Hx Malignant Hyperthermia: No Meds Allergies/Adverse Reactions: Allergies Allergy/AdvReac Type Severity Reaction Status Date / Time No Known Allergies Allergy Verified 09/05/14 16:16 - Medications Medications: Current Medications Aspirin (Ecotrin) 81 mg PO DAILY [facility] Last Admin: 01/10/18 10:20 Dose: 81 mg Clopidogrel Bisulfate (Plavix) 75 mg PO DAILY [facility] Last Admin: 01/10/18 10:20 Dose: 75 mg Docusate Sodium (Colace) 100 mg PO DAILY [facility] Last Admin: 01/10/18 10:21 Dose: 100 mg Ergocalciferol (Drisdol 50,000 Intl Units Cap) 1 cap PO QWK [facility] Famotidine (Pepcid) 20 mg PO BID [facility] Last Admin: 01/10/18 10:20 Dose: 20 mg Glipizide (Glucotrol) 10 mg PO BIDAC [facility] Last Admin: 01/10/18 08:30 Dose: 10 mg Heparin Sodium (Porcine) (Heparin) 5,000 units SC Q12 [facility] Insulin Aspart (Novolog) 0 unit SC ACHS [facility] PRN Reason: Protocol Last Admin: 01/10/18 12:05 Dose: 4 unit Losartan Potassium (Cozaar) 25 mg PO DAILY [facility] Last Admin: 01/10/18 10:20 Dose: 25 mg Metformin HCl (Glucophage) 1,000 mg PO BIDCC [facility] Methimazole (Tapazole) 10 mg PO DAILY [facility] Last Admin: 01/10/18 10:24 Dose: 10 mg Metoprolol Tartrate (Lopressor) 50 mg PO BID [facility] Last Admin: 01/10/18 10:25 Dose: 50 mg Rosuvastatin Calcium (Crestor) 10 mg PO DAILY [facility] Last Admin: 01/10/18 10:20 Dose: 10 mg Sitagliptin Phosphate (Januvia) 50 mg PO DAILY [facility] Last Admin: 01/10/18 10:19 Dose: 50 mg Results - Vital Signs Recent Vital Signs: Last Vital Signs Temp 97.5 F L 01/10/18 07:00 Pulse 74 01/10/18 07:00 Resp 20 01/10/18 07:00 BP 143/81 01/10/18 07:00 Pulse Ox 95 01/10/18 07:00 - Labs Result Diagrams: 01/09/18 12:56 01/09/18 12:56 Labs: Laboratory Results - last 24 hr 01/09/18 01/09/18 01/10/18 16:21 20:51 06:13 POC Glucose (mg/dL) 163 H 160 H 163 H 01/10/18 11:24 POC Glucose (mg/dL) 297 H Assessment & Plan - Assessment and Plan (Free Text) Assessment: 77 yr old male with what may be mild parkinsons disease with differential of cerebellar stroke. plan: 1. MRI Brain ...if negative would start sinemet our team will follow Thank you Dr. Ashford
--- NOTE | 2018-01-10 21:39 | CP.PCM.PN ---
Subjective - Date & Time of Evaluation Date of Evaluation: 01/10/18 Time of Evaluation: 08:40 - Subjective Subjective: Patient without new events Review Of Systems Except As Marked, All Systems Reviewed And Found Negative. Constitutional: Positive for: Sweats. Negative for: Other (LOC or tripping) Cardiovascular: Negative for: Chest Pain Respiratory: Negative for: Shortness of Breath Gastrointestinal: Negative for: Abdominal Pain Skin: Positive for: Other (redness in the face) Neurological: Positive for: Other (near syncope). Negative for: Headache Physical Exam - Physical Exam Appears: Non-toxic, No Acute Distress Skin: Diaphoretic, Other (chronic skin discoloration) Head: Atraumatic Eye(s): bilateral: Normal Inspection, PERRL, EOMI Respiratory: Normal Breath Sounds Gastrointestinal/Abdominal: Normal Exam, No Tenderness, Distention (slightly firm) Back: Normal Inspection Extremity: Normal ROM, Pedal Edema (+4 bilaterally) Objective - Vital Signs/Intake and Output Vital Signs (last 24 hours): Temp Pulse Resp BP Pulse Ox 98.7 F 82 20 124/72 99 01/10/18 15:59 01/10/18 16:36 01/10/18 15:59 01/10/18 15:59 01/10/18 15:59 - Medications Medications: Current Medications Aspirin (Ecotrin) 81 mg PO DAILY [facility] Last Admin: 01/10/18 10:20 Dose: 81 mg Clopidogrel Bisulfate (Plavix) 75 mg PO DAILY [facility] Last Admin: 01/10/18 10:20 Dose: 75 mg Docusate Sodium (Colace) 100 mg PO DAILY [facility] Last Admin: 01/10/18 10:21 Dose: 100 mg Ergocalciferol (Drisdol 50,000 Intl Units Cap) 1 cap PO QWK [facility] Famotidine (Pepcid) 20 mg PO BID [facility] Last Admin: 01/10/18 17:43 Dose: 20 mg [facility] Last Admin: 01/10/18 17:08 Dose: 10 mg Heparin Sodium (Porcine) (Heparin) 5,000 units SC Q12 [facility] Last Admin: 01/10/18 21:31 Dose: 5,000 units Insulin Aspart (Novolog) 0 unit SC ACHS [facility] PRN Reason: Protocol Last Admin: 06/03/18 17:08 Dose: 2 unit Losartan Potassium (Cozaar) 25 mg PO DAILY [facility] Last Admin: 01/10/18 10:20 Dose: 25 mg [facility] Methimazole (Tapazole) 10 mg PO DAILY [facility] Last Admin: 01/10/18 10:24 Dose: 10 mg Metoprolol Tartrate (Lopressor) 50 mg PO BID [facility] Last Admin: 01/10/18 17:43 Dose: 50 mg Rosuvastatin Calcium (Crestor) 10 mg PO DAILY [facility] Last Admin: 01/10/18 10:20 Dose: 10 mg Sitagliptin Phosphate (Januvia) 50 mg PO DAILY [facility] Last Admin: 01/10/18 10:19 Dose: 50 mg - Labs Labs: 01/09/18 12:56 01/09/18 12:56 Assessment and Plan - Assessment and Plan (Free Text) Assessment: 77 Male admitted for syncope Etiology ??? Check ECHO/Carotids Trop so far normal Neuro eval in progress DM 2 HTN CAD s/p PCI Continue all meds
--- NOTE | 2018-01-11 07:43 | PN ---
DATE: 01/10/2018 SUBJECTIVE: The patient is seen today, 01/10/2018. He is not in any cardiopulmonary distress. OBJECTIVE: VITAL SIGNS: Blood pressure is 124/72, temperature 98.7, respiratory rate 20, and pulse 82. HEENT: Pupils equal and reactive to light. Normal-appearing mucosa of the conjunctivae, oropharynx, and nasal membrane mucosa. NECK: Supple. No JVD. No carotid bruit. No lymph node. No thyromegaly. CHEST AND LUNGS: Bilateral symmetrical expansion. Good air exchange. No rales, no rhonchi. CARDIOVASCULAR SYSTEM: PMI not localized. S1, S2. No additional sounds. ABDOMEN: Normoactive bowel sounds. No tenderness. No organomegaly. No masses. EXTREMITIES: No cyanosis, no clubbing, no edema. REAR LOAD TRUCK DRIVER: Alert, awake, oriented x2. No neurological deficit could be appreciated. ASSESSMENT: 1. Status post fall with right elbow. 2. Abnormal gait that led to the fall, rule out early Parkinson's disease with shuffling gait. 3. Type 2 diabetes mellitus. 4. Hypertension. PLAN: Follow neurology consult. RECOMMENDATIONS: MRI was ordered and we will follow the recommendations. Continue current medications including the antihypertensive and diabetes medications. Noemi Huertas MD
[2018-01-11 07:46] LABS: BLOOD UREA NITROGEN 20 mg/dL (9-20); CALCIUM 9.2 mg/dl (8.6-10.4); GFR AFRICAN-AMERICAN > 60; GFR NON-AFRICAN AMERICAN > 60
[2018-01-11] MEDS: (Novolog) Insulin Aspart, Recombinant 100 u/ml 10 ml vial SC SCH ×4 (08:30→21:24)
--- NOTE | 2018-01-11 09:00 | CP.PCM.PN ---
Subjective - Date & Time of Evaluation Date of Evaluation: 01/11/18 Time of Evaluation: 08:59 - Subjective Subjective: Mr. Lei was seen and examined at the bedside. He is alert, oriented in all spheres. He denies any headache, dizziness, lightheadedness, nausea, or vomiting. He is able to follow simple commands. He had an episode of V-tach , cardiology is seeing this patient already. Objective - Vital Signs/Intake and Output Vital Signs (last 24 hours): Temp Pulse Resp BP Pulse Ox 98.4 F 88 20 145/84 97 01/11/18 08:52 01/11/18 08:52 01/11/18 08:52 01/11/18 08:52 01/11/18 08:52 Intake and Output: 01/11/18 01/11/18 06:59 18:59 Intake Total 200 Balance 200 - Medications Medications: Current Medications Aspirin (Ecotrin) 81 mg PO DAILY [facility] Last Admin: 01/10/18 10:20 Dose: 81 mg Clopidogrel Bisulfate (Plavix) 75 mg PO DAILY [facility] Last Admin: 01/10/18 10:20 Dose: 75 mg Docusate Sodium (Colace) 100 mg PO DAILY [facility] Last Admin: 01/10/18 10:21 Dose: 100 mg Ergocalciferol (Drisdol 50,000 Intl Units Cap) 1 cap PO QWK [facility] Famotidine (Pepcid) 20 mg PO BID [facility] Last Admin: 01/10/18 17:43 Dose: 20 mg Glipizide (Glucotrol) 10 mg PO BIDAC [facility] Last Admin: 01/11/18 08:30 Dose: 10 mg Heparin Sodium (Porcine) (Heparin) 5,000 units SC Q12 [facility] Last Admin: 01/10/18 21:31 Dose: 5,000 units Insulin Aspart (Novolog) 0 unit SC ACHS [facility] PRN Reason: Protocol Last Admin: 01/11/18 08:30 Dose: 2 unit Losartan Potassium (Cozaar) 25 mg PO DAILY [facility] Last Admin: 01/10/18 10:20 Dose: 25 mg Metformin HCl (Glucophage) 1,000 mg PO BIDCC [facility] Methimazole (Tapazole) 10 mg PO DAILY [facility] Last Admin: 01/10/18 10:24 Dose: 10 mg Metoprolol Tartrate (Lopressor) 50 mg PO BID [facility] Last Admin: 01/10/18 17:43 Dose: 50 mg Rosuvastatin Calcium (Crestor) 10 mg PO DAILY [facility] Last Admin: 01/10/18 10:20 Dose: 10 mg Sitagliptin Phosphate (Januvia) 50 mg PO DAILY [facility] Last Admin: 01/10/18 10:19 Dose: 50 mg - Labs Labs: 01/09/18 12:56 01/11/18 07:16 - Constitutional Appears: No Acute Distress - Head Exam Head Exam: NORMAL INSPECTION - Eye Exam Pupil Exam: PERRL - Neurological Exam Neurological Exam: Alert, Awake, Oriented x3 Neuro motor strength exam: Left Upper Extremity: 5, Right Upper Extremity: 5, Left Lower Extremity: 5, Right Lower Extremity: 5 Additional comments: alert, oriented, follows simple commands, sensation is intact. Assessment and Plan (1) Syncope Assessment & Plan: Case discussed with Dr. Ashford, continue all current medical, physical therapies. Pending MRI of the brain, if normal will start patient on sinemet. Status: Acute
[2018-01-11] MEDS ORDERED: Perflutren Lipid Microsphere 1.5 ML SUS IV ONE (11:43)
--- NOTE | 2018-01-11 15:40 | MRI ---
PROCEDURE: MRI BRAIN WITHOUT CONTRAST HISTORY: Syncope COMPARISON: Noncontrast head CT from 01/09/2018. TECHNIQUE: Multiplanar, multisequence MR images of the brain were obtained without intravenous contrast enhancement. FINDINGS: HEMORRHAGE: None DWI: No evidence of an acute or early subacute infarction. BRAIN PARENCHYMA: There are old lacunar infarctions in the left thalamus, right cerebellar hemisphere and left anterior centrum semiovale. There are severe chronic microangiopathic changes. There is no mass, mass effect or abnormal extra-axial fluid collection. The midline sagittal structures are normal. VENTRICLES: There is moderate age-related global parenchymal volume loss and proportionate enlargement of the ventricles and cortical sulci. CRANIUM: There is normal bone marrow signal pattern. ORBITS: Grossly unremarkable. PARANASAL SINUSES/MASTOIDS: The paranasal sinuses are predominantly clear. There are bilateral mastoid effusions. VASCULAR SYSTEM: There are normal signal voids in the larger intracranial arteries. OTHER FINDINGS: None. IMPRESSION: 1. No acute intracranial abnormality. 2. 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 3. Severe chronic microangiopathic changes and moderate age-related global parenchymal volume loss. 4. Bilateral mastoid effusions.
--- NOTE | 2018-01-11 20:33 | CARD ---
APPROVED REPORT EXAM: Two-dimensional and M-mode echocardiogram with Doppler, color Doppler with contrast. Other Information Quality : GoodRhythm : INDICATION Cardiac Disease: CAD Syncope Echo Enhancing Agent Indication: Endocardial border delineation Agent/Amount Used: Definity Surgery/Intervention CABG: RISK FACTORS Obesity 2D DIMENSIONS IVSd0.8 (0.7-1.1cm)LVDd5.6 (3.9-5.9cm) PWd0.7 (0.7-1.1cm)LVDs4.5 (2.5-4.0cm) FS (%) 20.9 %LVEF (%)65.0 (>50%) M-Mode DIMENSIONS Left Atrium (MM)3.84 (2.5-4.0cm)Aortic Root2.81 (2.2-3.7cm) Aortic Cusp Exc.1.97 (1.5-2.0cm) Mitral Valve MV E Dmstzknv812.0cm/sMV A Puvsyhff460.6cm/sE/A ratio0.9 TDI E/Lateral E'0.0E/Medial E'0.0 Tricuspid Valve TR Peak Fnaamsuo568ig/sTR Peak Gr.[id number] LEFT VENTRICLE The left ventricle is normal size. There is normal left ventricular wall thickness. Left ventricle systolic function is normal. The Ejection Fraction is 60-65%. Septal motion consistent with post-operative state. Transmitral Doppler flow pattern is Grade I-abnormal relaxation pattern. There is no ventricular septal defect visualized. RIGHT VENTRICLE The right ventricle is normal size. The right ventricular systolic function is normal. ATRIA The left atrium is mildly dilated. The right atrium size is normal. AORTIC VALVE The aortic valve is mildly sclerotic. The aortic valve is tri-cuspid. There is trace aortic regurgitation. There is no aortic valvular stenosis. MITRAL VALVE Mitral annular calcification is mild. There is no evidence of mitral valve prolapse. Mitral regurgitation is mild. TRICUSPID VALVE The tricuspid valve is normal in structure. There is trace tricuspid regurgitation. Right ventricular systolic pressure is estimated at less than 30 mmHg. There is no pulmonary hypertension. PULMONIC VALVE The pulmonic valve is not well visualized. GREAT VESSELS The aortic root is normal in size. The ascending aorta is normal in size. The IVC is normal in size and collapses >50% with inspiration. PERICARDIAL EFFUSION There is no pericardial effusion. <Conclusion> Left ventricle systolic function is normal. The Ejection Fraction is 60-65%. Septal motion consistent with post-operative state. Transmitral Doppler flow pattern is Grade I-abnormal relaxation pattern. There is trace aortic regurgitation. Mitral regurgitation is mild. Suboptimal study, poor window, Echo contrast was used.
--- NOTE | 2018-01-11 23:52 | CP.PCM.PN ---
Subjective - Date & Time of Evaluation Date of Evaluation: 01/11/18 Time of Evaluation: 17:55 - Subjective Subjective: Patient seen and evaluated Patient episode of 10 beats V Tch Scheduled for stress test and Tilt in am Objective - Vital Signs/Intake and Output Vital Signs (last 24 hours): Temp Pulse Resp BP Pulse Ox 98.2 F 62 20 142/74 96 01/11/18 15:00 01/11/18 15:00 01/11/18 15:00 01/11/18 17:10 01/11/18 15:00 - Medications Medications: Current Medications Aspirin (Ecotrin) 81 mg PO DAILY [facility] Last Admin: 01/11/18 09:54 Dose: 81 mg Budesonide (Pulmicort Respules) 0.5 mg INH DAILY [facility] Clopidogrel Bisulfate (Plavix) 75 mg PO DAILY [facility] Last Admin: 01/11/18 09:54 Dose: 75 mg Docusate Sodium (Colace) 100 mg PO DAILY [facility] Last Admin: 01/11/18 09:54 Dose: 100 mg Ergocalciferol (Drisdol 50,000 Intl Units Cap) 1 cap PO QWK [facility] Famotidine (Pepcid) 20 mg PO BID [facility] Last Admin: 01/11/18 17:10 Dose: 20 mg Furosemide (Lasix) 40 mg PO DAILY [facility] Last Admin: 01/11/18 17:10 Dose: 40 mg Glipizide (Glucotrol) 10 mg PO BIDAC [facility] Last Admin: 01/11/18 17:10 Dose: 10 mg Heparin Sodium (Porcine) (Heparin) 5,000 units SC Q12 [facility] Last Admin: 01/11/18 21:38 Dose: 5,000 units Insulin Aspart (Novolog) 0 unit SC ACHS [facility] PRN Reason: Protocol Last Admin: 01/11/18 21:24 Dose: Not Given Losartan Potassium (Cozaar) 25 mg PO DAILY [facility] Last Admin: 01/11/18 09:54 Dose: 25 mg Metformin HCl (Glucophage) 1,000 mg PO BIDCC [facility] Methimazole (Tapazole) 10 mg PO DAILY [facility] Last Admin: 01/11/18 09:53 Dose: 10 mg Metoprolol Tartrate (Lopressor) 50 mg PO BID [facility] Last Admin: 01/11/18 17:10 Dose: 50 mg Rosuvastatin Calcium (Crestor) 10 mg PO HS [facility] Last Admin: 01/11/18 21:39 Dose: 10 mg Sitagliptin Phosphate (Januvia) 50 mg PO DAILY [facility] Last Admin: 01/11/18 09:54 Dose: 50 mg - Labs Labs: 01/09/18 12:56 01/11/18 07:16
--- NOTE | 2018-01-12 02:04 | PN ---
DATE: 01/11/2018 DAILY PROGRESS NOTE SUBJECTIVE: The patient is seen today, 01/11/2018. He is not in any cardiopulmonary distress. The patient was seen by neurology and had an MRI done. OBJECTIVE: VITAL SIGNS: Blood pressure 142/74, temperature 98.2, respiratory rate 20 and pulse 62. HEENT: Pupils equal and reactive to light. Normal-appearing mucosa of the conjunctivae, oropharynx and nasal membrane mucosa. NECK: Supple. No JVD. No carotid bruit. No lymph node. No thyromegaly. CHEST AND LUNGS: Bilateral symmetrical expansion. Good air exchange. No rales. No rhonchi. CARDIOVASCULAR SYSTEM: PMI not localized. S1, S2. No additional sounds. ABDOMEN: Normoactive bowel sounds. No tenderness. No organomegaly. No masses. EXTREMITIES: No cyanosis, no clubbing, no edema. 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 No neurological deficit could be appreciated. ASSESSMENT: 1. Status post fall with possible Parkinson's disease and abnormal gait. 2. Type 2 diabetes mellitus. 3. Hypertension. 4. Coronary artery disease. PLAN: Follow recommendations of consultants and follow MRI results. Discussed the patient's condition with daughter. Noemi Huertas MD
[2018-01-12 07:16] LABS: HEMOGLOBIN 12.6 g/dL (12.0-18.0); MEAN CELL VOLUME 84.8 fL (80.0-94.0); MEAN CORPUSCULAR HEMOGLOBIN 28.6 pg (27.0-31.0); MEAN CORPUSCULAR HGB CONC 33.8 g/dL (33.0-37.0); MEAN PLATELET VOLUME 9.2 fL (7.2-11.7); RBC 4.4 Mil/uL (4.40-5.90); RED CELL DISTRIBUTION WIDTH 14.3 % (11.5-14.5); WHITE BLOOD COUNT 7.7 K/uL (4.8-10.8)
[2018-01-12 07:39] LABS: BLOOD UREA NITROGEN 17 mg/dL (9-20); CALCIUM 8.9 mg/dl (8.6-10.4); GFR AFRICAN-AMERICAN > 60; GFR NON-AFRICAN AMERICAN 59
--- NOTE | 2018-01-12 09:20 | CP.PCM.PN ---
Subjective - Date & Time of Evaluation Date of Evaluation: 01/12/18 Time of Evaluation: 09:14 - Subjective Subjective: PROCEDURE NOTE Proc: Tilt table test Indic: Syncope Day Worker: Herrera Bell MD Impression: Slow dropped in BP(>20mmHg with slow marginal change in HR<5 beats rise) consistent with Autonomic neuropathy. Pt remains asymptomatic throughout the test. Objective - Vital Signs/Intake and Output Vital Signs (last 24 hours): Temp Pulse Resp BP Pulse Ox 98.0 F 68 18 145/77 97 01/12/18 07:15 01/12/18 07:15 01/12/18 07:15 01/12/18 07:15 01/12/18 07:15 Intake and Output: 01/12/18 01/12/18 06:59 18:59 Intake Total 100 Output Total 1 Balance 99 - Medications Medications: Current Medications Aspirin (Ecotrin) 81 mg PO DAILY [facility] Last Admin: 01/11/18 09:54 Dose: 81 mg Budesonide (Pulmicort Respules) 0.5 mg INH DAILY [facility] Clopidogrel Bisulfate (Plavix) 75 mg PO DAILY [facility] Last Admin: 01/11/18 09:54 Dose: 75 mg Docusate Sodium (Colace) 100 mg PO DAILY [facility] Last Admin: 01/11/18 09:54 Dose: 100 mg Ergocalciferol (Drisdol 50,000 Intl Units Cap) 1 cap PO QWK [facility] Famotidine (Pepcid) 20 mg PO BID [facility] Last Admin: 01/11/18 17:10 Dose: 20 mg Furosemide (Lasix) 40 mg PO DAILY [facility] Last Admin: 01/11/18 17:10 Dose: 40 mg Glipizide (Glucotrol) 10 mg PO BIDAC [facility] Last Admin: 01/11/18 17:10 Dose: 10 mg Heparin Sodium (Porcine) (Heparin) 5,000 units SC Q12 [facility] Last Admin: 01/11/18 21:38 Dose: 5,000 units Insulin Aspart (Novolog) 0 unit SC ACHS [facility] PRN Reason: Protocol Last Admin: 01/11/18 21:24 Dose: Not Given Losartan Potassium (Cozaar) 25 mg PO DAILY [facility] Last Admin: 01/11/18 09:54 Dose: 25 mg Metformin HCl (Glucophage) 1,000 mg PO BIDCC [facility] Methimazole (Tapazole) 10 mg PO DAILY [facility] Last Admin: 01/11/18 09:53 Dose: 10 mg Metoprolol Tartrate (Lopressor) 50 mg PO BID [facility] Last Admin: 01/11/18 17:10 Dose: 50 mg Rosuvastatin Calcium (Crestor) 10 mg PO HS [facility] Last Admin: 01/11/18 21:39 Dose: 10 mg Sitagliptin Phosphate (Januvia) 50 mg PO DAILY [facility] Last Admin: 01/11/18 09:54 Dose: 50 mg - Labs Labs: 01/12/18 07:10 01/12/18 07:10
[2018-01-12] MEDS ORDERED: Budesonide 0.5 mg/2 ml Inhal Susp UD INH SCH (10:00)
--- NOTE | 2018-01-12 10:26 | VASCLAB ---
PROCEDURE: HISTORY: syncope COMPARISON: None available. TECHNIQUE: Grayscale and duplex Doppler evaluation of the cervical carotid and vertebral arteries were performed. The common carotid, carotid bifurcations and cervical Internal Carotid Artery (ICA) and proximal External Carotid Artery (ECA) were evaluated. The vertebral arteries were evaluated for gross patency and flow direction. Report prepared by Ashkan Mccall, BS, RVT FINDINGS: RIGHT CAROTID ARTERIES: 1. Common Carotid Artery: No significant focal plaque formation of the right common carotid artery. Maximum Peak Systolic velocity: 80 cm/sec: End-diastolic velocity 21 cm/sec. 2. Carotid Bifurcation: Calcific plaque formation. Maximum Peak Systolic velocity: 67 cm/sec: End-diastolic velocity 13 cm/sec. 3. Internal Carotid Artery: Minimal plaque formation of the right proximal ICA which does not result in hemodynamically significant stenosis. Plaque description: Calcific 3.1. Proximal Segment: Peak systolic velocity 84 cm/sec: End-diastolic velocity 21 cm/sec - % stenosis 0-15% 3.2. Middle Segment: Peak systolic velocity 129 cm/sec: End-diastolic velocity 26 cm/sec - % stenosis 0-15% 3.3. Distal Segment: Peak systolic velocity 77 cm/sec: End-diastolic velocity 22 cm/sec - % stenosis 0-15% 4. External Carotid Artery: No significant focal plaque formation. Peak systolic velocity 118 cm/sec 5. ICA/CCA Ratio: 1.6 LEFT CAROTID ARTERIES: 1. Common Carotid Artery: No significant focal plaque formation of the left common carotid artery. Maximum Peak Systolic velocity: 77 cm/sec: End-diastolic velocity 18 cm/sec. 2. Carotid Bifurcation: Calcific plaque formation. Maximum Peak Systolic velocity: 70 cm/sec: End-diastolic velocity 12 cm/sec. 3. Internal Carotid Artery: Minimal plaque formation of the left proximal ICA which does not result in hemodynamically significant stenosis. Plaque description: Calcific 3.1. Proximal Segment: Peak systolic velocity 118 cm/sec: End-diastolic velocity 28 cm/sec - % stenosis 0-15% 3.2. Middle Segment: Peak systolic velocity 124 cm/sec: End-diastolic velocity 27 cm/sec - % stenosis 0-15% 3.3. Distal Segment: Peak systolic velocity 78 cm/sec: End-diastolic velocity 17 cm/sec - % stenosis 0-15% 4. External Carotid Artery: No significant focal plaque formation. Peak systolic velocity 222 cm/sec 5. ICA/CCA Ratio: 1.6 VERTEBRAL ARTERIES: 1. Right Vertebral Artery: The right vertebral artery flow direction is antegrade. 2. Left Vertebral Artery: The left vertebral artery flow direction is antegrade. OTHER FINDINGS: 1. Right Brachial Blood pressure: 124 mmHg. 2. Left Brachial Blood pressure: 130 mmHg. IMPRESSION: RIGHT: Duplex scan does not suggest hemodynamically significant stenosis of the right extracranial carotid arteries. LEFT: Duplex scan does not suggest hemodynamically significant stenosis of the left extracranial carotid arteries.
[2018-01-12] MEDS: (Novolog) Insulin Aspart, Recombinant 100 u/ml 10 ml vial SC SCH ×2 (12:09→12:16)
--- NOTE | 2018-01-12 13:42 | CARD ---
APPROVED REPORT EKG Measurement Heart [id number] <Conclusion> Sinus rhythm with 1st degree AV block with occasional premature ventricular complexes Inferior infarct, age undetermined Abnormal ECG
--- NOTE | 2018-01-12 13:43 | CARD ---
APPROVED REPORT EKG Measurement Heart [id number] <Conclusion> Normal sinus rhythm Inferior infarct, age undetermined Abnormal ECG
[2018-01-12 15:57] VITALS: BP 139/73; RESP 20; TEMP 97.4; O2SAT 96
--- NOTE | 2018-01-12 16:56 | CP.PCM.PN ---
Subjective - Date & Time of Evaluation Date of Evaluation: 01/12/18 Time of Evaluation: 16:56 - Subjective Subjective: PT CLEARED FOR D/C PER DR. LARSEN AND DR. CEDILLO. DISCUSSED ALL D/C PLAN AND INFORMATION WITH PT AND DAUGHTER AT BEDSIDE. RX GIVEN FOR NEW MEDS. NO FURTHER ORDERS. -FOLLOW UP WITH DR. CEDILLO IN THE OFFICE IN 1 WEEK---CALL FOR APPOINTMENT TIME. -FOLLOW UP WITH DR. LARSEN IN THE OFFICE WITHIN 1-2 MONTHS---CALL FOR APPOINTMENT TIME. -FOLLOW UP WITH DR. SHI OR DR. DYSON (NEUROLOGIST) IN THE OFFICE WITHIN 2-3 WEEKS---CALL FOR APPOINTMENT TIME. -CONTINUE HOME MEDICATIONS USUAL. -NEW MEDICATIONS INCLUDE: SINIMET (FOR PARKINSON'S SYMPTOMS) 10/100 MG (TAKE 1 TABLET) BY MOUTH THREE TIMES A DAY 9MORNING, AFTERNOON AND EVENING). -WEAR COMPRESSION STOCKINGS DAILY, FOR AT LEAST 5-6 HOURS/DAY---REMOVE WHEN GOING TO BED. -WHEN YOU ARE SITTING DOWN OR LAYING DOWN, PLEASE GET UP VERY SLOWLY, GETTING UP TOO FAST WILL MAKE YOU DIZZY AND YOU CAN FALL. -IF YOU HAVE ANY FURTHER QUESTIONS OR CONCERNS, CONTACT DR. CEDILLO. Objective - Vital Signs/Intake and Output Vital Signs (last 24 hours): Temp Pulse Resp BP Pulse Ox 97.4 F L 69 20 139/73 96 01/12/18 15:00 01/12/18 15:00 01/12/18 15:00 01/12/18 15:00 01/12/18 15:00 Intake and Output: 01/12/18 01/12/18 06:59 18:59 Intake Total 100 120 Output Total 1 Balance 99 120 - Medications Medications: Current Medications Aspirin (Ecotrin) 81 mg PO DAILY [facility] Last Admin: 01/12/18 12:13 Dose: 81 mg Budesonide (Pulmicort Respules) 0.5 mg INH DAILY [facility] Last Admin: 01/12/18 09:58 Dose: 0.5 mg Clopidogrel Bisulfate (Plavix) 75 mg PO DAILY [facility] Last Admin: 01/12/18 12:13 Dose: 75 mg Docusate Sodium (Colace) 100 mg PO DAILY [facility] Last Admin: 01/12/18 12:13 Dose: 100 mg Ergocalciferol (Drisdol 50,000 Intl Units Cap) 1 cap PO QWK [facility] Famotidine (Pepcid) 20 mg PO BID [facility] Last Admin: 01/12/18 12:13 Dose: 20 mg Furosemide (Lasix) 40 mg PO DAILY [facility] Last Admin: 01/12/18 12:14 Dose: 40 mg Glipizide (Glucotrol) 10 mg PO BIDAC [facility] Last Admin: 01/12/18 12:16 Dose: Not Given Heparin Sodium (Porcine) (Heparin) 5,000 units SC Q12 [facility] Last Admin: 01/12/18 12:15 Dose: 5,000 units Insulin Aspart (Novolog) 0 unit SC ACHS [facility] PRN Reason: Protocol Last Admin: 01/12/18 12:16 Dose: Not Given Losartan Potassium (Cozaar) 25 mg PO DAILY [facility] Last Admin: 01/12/18 12:14 Dose: 25 mg Metformin HCl (Glucophage) 1,000 mg PO BIDCC [facility] Methimazole (Tapazole) 10 mg PO DAILY [facility] Last Admin: 01/12/18 12:11 Dose: 10 mg Metoprolol Tartrate (Lopressor) 50 mg PO BID [facility] Last Admin: 01/12/18 12:13 Dose: 50 mg Rosuvastatin Calcium (Crestor) 10 mg PO HS [facility] Last Admin: 01/11/18 21:39 Dose: 10 mg Sitagliptin Phosphate (Januvia) 50 mg PO DAILY [facility] Last Admin: 01/12/18 12:15 Dose: 50 mg - Labs Labs: 01/12/18 07:10 01/12/18 07:10
[2018-01-12 17:01] VITALS: PULSE 68
--- NOTE | 2018-01-13 05:33 | CARD ---
APPROVED REPORT Protocol: PHARMACOLOGICAL STRESS Test Type: LEXISCAN Test Indications: SYNCOPE Medications: LISST SCAN Medical History: SYNCOPE Target HR: 145 bpm Resting ECG: NSR W/ NS ST T CHANGES Resting Heart Rate: 73 bpm Resting Blood Pressure: 114/66mmHg submaximum (85%): 123 bpm TEST SUMMARY [id number]/66.0. INFUSIONDOSE 100:300.00.01.072/.0. [id number]/70.9. PROCEDURE Pharmacologic stress testing was performed using 0.4mg per 5ml of regadenoson given intravenously over 7-10 seconds. Reversal agent aminophyline 125 mg, given intravenously for Syncope. POST EXERCISE Reason for Termination: Protocol Completed Target HR: No Max HR: 72 bpm 69% of Maximum Predicted HR: 145 bpm Exercise duration: 00:30 min:sec, 0 Stage Exercise capacity: 1.0METs Max Blood Pressure: 122/70mmHg Blood Pressure response to exercise: normal resting BP - appropriate response Heart Rate response to exercise: appropriate Chest Pain: No, none Angina index: 0 Arrhythmia: No, none ST Change: No, none Deviation: 0 mm INTERPRETATION Stress EKG Conclusion: NEGATIVE LEXISCAN STRESS TEST OCC VPB'S NORMAL BP RESPONSE TO LEXISCAN NUCLEAR STUDIES TO BE READ SEPARATELY EXAM: Myocardial Perfusion REST/STRESS Imaging Protocol The imaging protocol used to acquire images was Rest Tc-99m/stress Tc-99m 1 day Rest Spect myocardial perfusion imaging was performed in supine position 45 minutes following the injection of 12.5 mCi of Tc-99 Myoview. Gated Stress Spect was performed 55 minutes after intravenous 32.6 mci Tc-99 Myoview injection. The images were gated to evaluate regional wall motion and calculate ventricular ejection fraction.Images were reconstructed using backfilter projection method in short horizontal and verticle long axis. Spect slices were generated. RESTING DATA [id number]/min ESV62.00mlMyocardial Evcv743.00g Av. Heart Rate67.00bpm EF53.00% STRESS DATA SRU905.58azEJ0.00L/min ESV59.00mlMyocardial Foys035.00g EF46.00% Regional WT score at stress:0.00 Regional WM score at stress:0.00 Summed WT score at stress:5.00 Av. Heart Rate79.00bpmSummed WM score at stress:25.00 LV Perf. Quant 17 Seg. SSS17.00 17 Seg. SRS17.00 17 Seg. SDS3.00 Stress Defect Extent (% LAD)38.80Rest Defect Extent (% LAD)41.90Rev. Defect Extent (% LAD)11.90 Stress Defect Extent (% LCX)10.00Rest Defect Extent (% LCX)7.50Rev. Defect Extent (% LCX)0.00 Stress Defect Extent (% RCA)46.70Rest Defect Extent (% RCA)23.30Rev. Defect Extent (% RCA)15.60 Stress Defect Extent (% KARLA)36.30Rest Defect Extent (% KARLA)30.90Rev. Defect Extent (% KARLA)10.90 IMPRESSION Abnormal Myocardial Perfusion exercise stress study Left Ventricle LV Size/Shape: The left ventricle is grossly normal size. LV Function:Left ventricle systolic function is mildly impaired. The Ejection Fraction is 45-50%. Regional Wall Motion:There is mild hypokinesis in the basal inferior wall. Metabolism/Perfusion Defects: There is scan evidence of fixed defect in the inferior wall noted consistent of myocardial scarring. There is scan evidence of reversible ischemia in the apex suggestive of ischemia. Conclusion 1. There is scan evidence of fixed defect in the inferior wall noted consistent of myocardial scarring. 2. There is scan evidence of reversible ischemia in the apex suggestive of ischemia. 3. Left ventricle systolic function is mildly impaired. 4. The Ejection Fraction is 45-50%.
--- NOTE | 2018-01-13 07:41 | DS ---
REASON FOR ADMISSION: This is 77-year-old male with history of multiple medical problems, was admitted after a fall and abrasion of the right elbow. COURSE OF HOSPITALIZATION: The patient was admitted to telemetry floor and he had neuro check every 4 hours. The patient's history did not show any loss of consciousness. The patient had a cardiology consult done by Dr. Arce and neurology consult done by Dr. Moreno. The patient had an MRI of the head that did not reveal any significant changes except for small vessel disease. The patient was discharged home on [place] to follow up with neurology as well as with primary care physician. FINAL DIAGNOSES: 1. A fall with abrasion of the right elbow. 2. Dysfunctional gait, likely secondary to Parkinson's disease. 3. Type 2 diabetes mellitus. 4. Hypertension. 5. Diabetic neuropathy. [facility] MD Aleksandar
[2018-01-16] MEDS ORDERED: Ergocalciferol 50,000 Intl Units Cap PO SCH (10:00)
--- NOTE | 2018-02-03 08:00 | CARDCATH ---
PROCEDURE DATE: 01/12/2018 PROCEDURE: Tilt-table test. INDICATIONS: Recurrent dizziness. INSTRUCTOR [employer]PAR[employer]URE: Laura Bell MD DESCRIPTION OF PROCEDURE: The patient was brought to the microbiological lab technician and tilt table test was performed at 30 degrees for 5 minutes and 60 degrees for 15 minutes. Blood pressure and heart rate response were monitored. There was a 43 mm gradual decline in the blood pressure and 5 beats per minute decrease in heart rate. The patient was asymptomatic throughout the test. IMPRESSION: Drop in blood pressure of 43 mmHg with a marginal drop in heart rate of 5 mmHg, is most likely secondary to autonomic neuropathy. The patient was asymptomatic throughout the test. Laura Bell MD
== END 2018-01-12 18:26 | DRG 74 ==
LOC: C.ER 12:25 → C.9E 14:36 → C.6T 15:20
PROVIDERS: ADMIT Internal Medicine; ATTEND Internal Medicine
PROC: 4A03XB1 Measurement of Arterial Pressure, Peripheral, External Approach (ICD-10-PCS; 2018-01-12)
PROC: 4A02XFZ Measurement of Cardiac Rhythm, External Approach (ICD-10-PCS; principal; 2018-01-12 08:00)
DX: G90.9 Disorder of the autonomic nervous system, unspecified (principal); I47.2 Ventricular tachycardia; R55 Syncope and collapse; E11.51 Type 2 diabetes mellitus with diabetic peripheral angiopathy without gangrene; E11.40 Type 2 diabetes mellitus with diabetic neuropathy, unspecified; E03.9 Hypothyroidism, unspecified; E78.5 Hyperlipidemia, unspecified; G20 Parkinson's disease; I10 Essential (primary) hypertension; I25.10 Atherosclerotic heart disease of native coronary artery without angina pectoris; S50.311A Abrasion of right elbow, initial encounter; W01.0XXA Fall on same level from slipping, tripping and stumbling without subsequent striking against object, initial encounter; Y93.01 Activity, walking, marching and hiking; Z95.1 Presence of aortocoronary bypass graft; Z98.61 Coronary angioplasty status